=== PATIENT | female | born 1935 | race Caucasian/White ===

== ENCOUNTER 2016-04-26 11:20 | Inpatient (IN) | payer MEDICARE, OTHER, MEDICAID ==
[~2016-04-26] VITALS: Ht 173 cm; Wt 91.0 kg
--- NOTE | ~2016-04-26 | PR ---
[place], [place] PROGRESS NOTE NAME: RADHA SAGE UNIT #: [id number] ROOM: 406 DOCTOR: MONAE POON MD,RACH BIRTHDATE: [birth year] DOS: 04/29/2016 PULMONARY PROGRESS NOTE SUBJECTIVE: She has been noted much better at this time, continued to show reduction and improvement of the respiratory complaints. She was complaining of some shortness of breath, last night, insomnia, treated with some anxiolytics and the medication for insomnia as per patient. OBJECTIVE: VITAL SIGNS: Show normal temperature, respiratory rate 22, heart rate 68, blood pressure 152/68. The pulse oxygen saturation on room air was 94% saturation. HEENT: Examination shows no acute change. NECK: Supple. CARDIOVASCULAR: S1, S2 audible. LUNGS: Noted clear and there were no wheezing or crackles. ABDOMEN: Soft, nontender and obese. LABORATORY DATA: INR 2.5, which is therapeutic. BMP of the patient noted normal. Culture of the bronchial washing noted normal osman. IMPRESSION: 1. Progressive resolution of acute exacerbation of bronchial asthma, acute tracheobronchitis and improvement in the cough of the patient noted progressively. 2. The patient with history of atrial fibrillation for this patient and chronic anticoagulation with therapeutic INR. PLAN OF TREATMENT: The patient would be considered for home discharge at this time. In the meantime, continue other previous treatment, therapy, plan of management. Usual care. Supportive therapy and care. RACH LICONA MD CM:PNTRANS [id number] RACH POON MD 04/29/16 1438 interface
--- NOTE | ~2016-04-26 | PR ---
[place], [place] PROGRESS NOTE NAME: RADHA SAGE UNIT #: [id number] ROOM: 406 DOCTOR: MONAE POON MD,RCAH BIRTHDATE: [birth year] DOS: 04/30/2016 PULMONARY FOLLOWUP SUBJECTIVE: She has been noted without any acute distress at this time. The patient has been noted without any symptoms of chest pain, abdominal pain. The coughing and shortness of breath all improving. She was planned for possible home discharge today. OBJECTIVE: VITAL SIGNS: The patient showed normal temperature, respiratory rate 21-20, heart rate 57, blood pressure 164/60. The pulse oxygen saturation on room air was 95% saturation. HEENT: Showed no acute change. NECK: Supple. CARDIOVASCULAR: S1, S2 audible. LUNGS: The patient was noted without any wheezing or crackles at the present time. ABDOMEN: Soft and nontender. LABORATORY DATA: The INR today was recorded as 3.0. BMP of the patient this morning noted normal BUN and creatinine. IMPRESSION: 1. Stable respiratory status with resolving acute cough in this patient with exacerbation of bronchial asthma, improving markedly. 2. Chronic anticoagulation, history of atrial fibrillation. PLAN OF TREATMENT: No changes in plan of management. Continue current therapy, plan of care as in progress. Other supportive therapy, plan of care, and usual medical management. RACH LICONA MD CM:PNTRANS [id number] RACH POON MD 05/01/16 0019 interface
--- NOTE | ~2016-04-26 | PROC NOTE ---
[place], [place] PROCEDURE NOTE NAME: RADHA SAGE UNIT #: [id number] ROOM: 406 DOCTOR: MONAE POON MD,RACH BIRTHDATE: [birth year] DOS: 04/27/2016 PROCEDURE: Bronchoscopy. PREOPERATIVE DIAGNOSIS: The patient with persistent severe nonresolving cough with acute exacerbation of bronchial asthma. POSTOPERATIVE DIAGNOSIS: Removal of large plugs of mucus from endobronchial tree bilaterally. FINDINGS: Acute tracheobronchitis. No evidence of endobronchial obstructive lesions. PROCEDURE DESCRIPTION: Informed consent obtained from the patient. She was brought to the OR and placed in supine position. Conscious sedation was administered by the Anesthesia Department. After achieving appropriate sedation, airway introduced into the mouth. Bronchoscope advanced through the airway into laryngeal area. Epiglottis and vocal cords were seen. Bronchoscope advanced to the vocal cord and tracheal lumen. Tracheal lumen shows moderate amount of very thick mucus of the patient mixed with some purulent secretions. All these secretions suctioned out to the suman level. The suman was noted sharp. Right upper, right middle, right lower, left upper, lingula and lower lobe bronchi noted for this patient with severe impaction of the mucus plugs with small purulent secretion. All secretions were suctioned out with help of normal saline wash and sent for cultures. Procedure was tolerated by the patient without any complications. Postoperative findings will be discussed with the patient once the patient recovers from the effects of acute sedation. After the bronchoscopy, her Coumadin has been resumed for the patient to be continued at 5 mg daily, her usual dose. RACH LICONA MD CM:PROCNOTE:PROCEDURE NOTE [id number] RACH POON MD
--- NOTE | ~2016-04-26 | CON ---
[place], [place] REPORT OF CONSULTATION [id number] UNIT #: [id number] ROOM: 406 DOCTOR: MONAE POON MD,RACH BIRTHDATE: [birth year] DOS: 04/27/2016 PULMONARY CONSULTATION, EVALUATION AND MANAGEMENT NOTE REASON FOR CONSULTATION: Assess the patient for persistent acute respiratory symptoms. HISTORY OF PRESENT ILLNESS: The patient is a 81-year-old white female who has been known to me from the past. The patient has been treated in the office couple of times with the antibiotics, bronchodilators, corticosteroids because of severe progressive cough, which has been noted nonproductive. The patient was also noted with symptoms of wheezing and shortness of breath. The patient has been noted with only partial improvement in symptoms with the medical management as an outpatient. She presented to the Emergency Room. The patient has been hospitalized after assessment in the Emergency Room for this patient on 04/26/2016. She has been noted with severe cough with minimal sputum expectoration of greenish at times. Most of times, cough has been noted nonproductive, shortness of breath has been also noted significantly increased and the patient also developed fever. The patient denies any symptoms of chest pain, except pain in the lower rib cage noted with excessive cough. She has been noted with wheezing as well, which has been noted intermittently moderate at times. REVIEW OF SYSTEMS: CONSTITUTIONAL: Fatigue and tiredness noted without any symptoms of fever or chills. EYES: Denies any burning, redness, or tenderness. EARS, NOSE AND THROAT SYMPTOMS: No sore throat, hoarseness, otalgia, postnasal drainage or epistaxis. CARDIOVASCULAR: Denies anginal pain, edema of the lower extremities. Denies any symptoms of palpitations. GASTROINTESTINAL: Denies dysphagia, nausea, vomiting, diarrhea, abdominal pain, hematemesis, melena, or hematochezia. GENITOURINARY: Denies dysuria, suprapubic pain or hematuria. MUSCULOSKELETAL: Denies acute joint pain, redness, or tenderness. SKIN: Denies any lesions or rashes. CENTRAL NERVOUS SYSTEM: Denies dizziness, headache, diplopia, syncopal episodes or seizures. Remaining systems were reviewed with the patient, they were noted all negative. PAST MEDICAL HISTORY: The patient was noted with: 1. History of past hospitalization in 2013, at that time the patient has been treated for atypical chest pain and other medical problems and then discharged subsequently home. 2. History of coronary artery disease. 3. History of uncomplicated severe persistent bronchial asthma. 4. Essential hypertension. 5. Hypercholesterolemia. 6. Hypothyroidism. [place], [place] REPORT OF CONSULTATION NAME: RADHA SAGE UNIT #: [id number] ROOM: [facility] DOCTOR: RACH GUNTER MD BIRTHDATE: [birth year] 7. Chronic obesity. 8. Atrial fibrillation. 9. Anxiety neurosis. 10. Obstructive sleep apnea disorder. PAST SURGICAL HISTORY: Reported as: 1. Cardiac catheterization and coronary artery stents insertion. 2. Complete hysterectomy. 3. Laparoscopic cholecystectomy. SOCIAL HISTORY: The patient is , has 5 children. Denies any alcohol use or illicit drug use. Tobacco use noted from the age of [age] years old, 1 pack of cigarettes per day until 1997. There is no occupation related pulmonary exposure. FAMILY HISTORY: Father at the age of 5252 years old from complications of acute myocardial infarction. Mother at the age of 8282 years old from natural causes. MEDICATIONS: The medications which has been listed and used at home by the patient were use of Vicodin, albuterol sulfate via nebulizer, aspirin, calcium carbonate, citalopram, Cardizem-CD, ferrous sulfate, Lasix, Neurontin, levothyroxine, loratadine, losartan, metoprolol, multivitamin, Protonix, potassium chloride, Spiriva, Coumadin and Symbicort HFA inhaler. DRUG ALLERGIES: THE PATIENT WAS NOTED ALLERGIES TO: 1. ZITHROMAX. 2. OXYCODONE. PHYSICAL EXAMINATION: GENERAL: A 81-year-old female who has been currently noted to be awake and alert without any distress. Height of the patient recorded as 5 feet 8 inches, weight of 200 pounds, BMI 30.4. VITAL SIGNS: Normal temperature, respiratory rate 20, heart rate 97, blood pressure 174/76 and 137/55. Pulse oxygen saturation of the patient recorded as 92% saturation. HEENT: Shows head was atraumatic. Eyes nonicterus. Decreased posterior pharyngeal space. LUNGS: Auscultation of chest noted with diffuse expiratory wheezing in the lungs bilaterally without any crackles. ABDOMEN: Soft with chronic obesity. Bowel sounds present. CENTRAL NERVOUS SYSTEM: The patient's cranial nerves 2-12 intact. No focal deficit. MUSCULOSKELETAL: No deformities. SKIN: No lesions or rashes. LABORATORY DATA: PT/INR for the patient yesterday was noted at 2.3, which is therapeutic. Lactic acid was noted 2.1 on admission. CBC on admission was noted as normal CBC. CMP of the patient on admission of 04/26/2016, glucose 159, BUN and creatinine was normal. AST was 49 and ALT was 80 mildly elevated [place], [place] REPORT OF CONSULTATION NAME: RADHA SAGE UNIT #: [id number] ROOM: [facility] DOCTOR: MONAE POON MD,RACH BIRTHDATE: [birth year] and remaining liver function tests were normal. Followup lactic acid of the patient was noted as 2.2 to 2.7. CK-MB and troponin for the patient which were done for this patient yesterday and this morning, 3 sets were normal. The INR for the patient that was done this morning was 2.1. CMP of the patient that was done this morning, glucose 173, BUN and creatinine was normal with a normal AST and ALT this morning. REVIEW OF THE RADIOLOGY DATA: The chest x-ray of the patient that was done on 04/26/2016, shows mild cardiomegaly without any acute pulmonary infiltration. IMPRESSION: 1. The patient who has been currently admitted to the hospital with failed outpatient treatment for acute exacerbation, uncomplicated, severe persistent bronchial asthma with suspected mucus impaction of the airways and possible resistant infection cannot be excluded. 2. The patient with history of obstructive sleep apnea disorder. 3. Chronic anticoagulation patient noted with low normal range of the PT/INR today. 4. Chronic obesity as well. 5. Atrial fibrillation noted with current controlled rate. 6. History of gastroesophageal reflux and allergic rhinitis. PLAN OF TREATMENT: No changes in the plan of management of steroids, bronchodilators and oxygen supplementation. She has been assessed and was made n.p.o. last midnight for this patient for the bronchoscopy that was planned to be done today. After the bronchoscopy assessment of the patient, further change in treatment will be recommended accordingly. In the meantime, no other change in the treatment will be necessary. Usual care. All other supportive plan of management and care. Further treatment changes will be done based on the bronchoscopy. Thank you for allowing me to participate in the care of this patient. RACH LICONA MD CM:CONSTR:REPORT OF CONSULTATION 1110 04/28/16 0342 interface
--- NOTE | ~2016-04-26 | PR ---
[place], [place] PROGRESS NOTE NAME: RADHA SAGE UNIT #: [id number] ROOM: 406 DOCTOR: RACH GUNTER MD BIRTHDATE: [birth year] DOS: 04/28/2016 SUBJECTIVE: The patient was seen and examined 04/28/2016. Bronchoscopy done for the patient yesterday, which has resulted in reduction of the respiratory complaints. The patient denies symptoms of any chest pain. Denies symptoms of abdominal pain. OBJECTIVE: VITAL SIGNS: The patient shows a normal temperature, respiratory rate 18, heart rate 97, blood pressure 137/50. Intake for the patient was at 2.390 liters, output 3400 mL. Pulse oxygen saturation on room air was 94% saturation. HEENT: Examination shows no acute changes. CARDIOVASCULAR: S1, S2 audible. LUNGS: The patient was noted with mild expiratory wheezing, decreased from previous examinations. ABDOMEN: Soft, obese, nontender. EXTREMITIES: Shows obesity with mild ankle edema. LABORATORY DATA: Cultures of the sputum for this patient was noted normal osman. Gram stain bronchial washings yesterday, moderate white blood cells, few epithelial cells, few Gram-positive cocci in pairs and clusters. The PT/INR today was noted as 2.1, which is in therapeutic range. CMP of the patient this morning, glucose 177, BUN and creatinine was normal. CBC of the patient this morning was noted as normal CBC. IMPRESSION: The patient with severe acute tracheobronchitis with exacerbation of uncomplicated severe persistent bronchial asthma, status post bronchoscopy with significant reduction of the respiratory symptoms were noted. PLAN OF TREATMENT: Continuation of the current plan of management. The patient bronchodilators, oxygen supplementation and monitor culture results of the bronchial washing to make any adjustments other medication changes for the patient as needed. The dose of Solu-Medrol certainly be decreased for the patient to 40 mg b.i.d. Potential discharge home could be considered in the morning depending on further resolution and improvement of respiratory symptoms with current medical management. [place], [place] PROGRESS NOTE NAME: RADHA SAGE UNIT #: [id number] ROOM: 406 DOCTOR: RACH GUNTER MD BIRTHDATE: [birth year] RACH LICONA MD CM:PNRIGOBERTO 1223 20 RACH POON MD 04/28/162021 interface
[~2016-04-26 11:20] MED LIST: ACTOS15 MG PO; ALAVERT10 MG PO; APAP/HYDROCODON1 T45 PO; ASPIR-LOW81 MG PO; ASPIRIN81 M1 PO; BISOPROLOL5 MG PO; BLOCADREN5 MG PO; CALCIUM600 M1 PO; CARDIZEM120 MG PO; CELEXA10 MG PO; CELEXA20 MG PO; CIPRO500 MG PO; CITALOPRAM10 MG PO; COUMADIN0.5 M1 PO; COUMADIN1 MG PO; COUMADIN3 M1 PO; COUMADIN4 M1 PO; COUMADIN4 MG PO; COUMADIN5 M2 PO; CRESTOR10 M1 PO; CRESTOR10 MG PO; DILTIAZEM HCL120 MG PO; DILTIAZEM120 MG PO; DOXYCYCLINE100 M3 PO; DULERA100 INH; EFFIENT10 MG PO; FEOSOL300 MG PO; FLAGYL500 MG PO; FUROSEMIDE20 MG PO; FUROSEMIDE40 MG PO; GABAPENTIN300 MG PO; GABAPENTIN400 MG PO; HYDROCODONE-APA1 TA3 PO; HYTONE 2.5% LOT.2 OZ TP; K-Dur 20MEQ20 MEQ PO; LASIX10 MG/ML; LASIX20 MG PO; LEVOTHYROXIN0.075 MG PO; LOPRESSOR PO; LOPRESSOR25 MG PO; LOSARTAN POTASS50 M1 PO; LUMIGAN 2.5 ML2.5 ML OU; Lopressor25 MG PO; MAPAP325 MG PO; MAXZIDE 25 MG-31 TAB PO; MELOXICAM15 MG PO; METFORMIN HCL500 MG PO; METOPROLOL SUCC25 M2 PO; MIRALAX17 GM/PACK PO; MULTIPLE VITAMI1 CAP PO; NEURONTIN100 MG PO; NITROSTAT0.4 MG SL; OXYGEN NAS; PRAVACHOL10 MG PO; PREVACID30 M1 PO; PREVACID30 MG PO; PROAIR HFA0.09 MG/AC; PROAIR HFA0.09 MG/AC INH; PROTONIX TR40 MG PO; PUFFER; REGLAN5 MG PO; SPIRIVA18 MCG INH; SUPER B COMPLEX PO; SUPER B COMPLEX1 CAP PO; SYNTHROID0.025 MG PO; TIMOPTIC 0.5% 55 ML OU; TRIAMTERENE/HCT1 TA3 PO; VICODIN 5/500 505 MG PO; VITAMIN D32000 I1 PO; Vicodin 5/500 505 MG PO; WARFARIN SODIUM3 MG; ZEBETA5 MG PO; Zofran4 MG PO
[2016-04-26 12:03] LABS: BASO # 0.1 10*3/uL (0.0-0.1); BASO % 0.5 % (0.0-1.0); EOS # 0.1 10*3/uL (0.0-0.4); EOS % 1.5 % (1.0-4.0); HEMATOCRIT 42.2 % (37.0-47.0); HEMOGLOBIN 13.7 g/dl (12.0-16.0); LYMPH # 2.1 10*3/uL (1.3-4.4); LYMPH % 22.6 % (27.0-41.0); MEAN CELL VOLUME 93.8 fl (81.0-99.0); MEAN CORPUSCULAR HGB 30.4 pg (27.0-31.0); MEAN CORPUSCULAR HGB CONC 32.5 g/dl (33.0-37.0); MEAN PLATELET VOLUME 9.4 fl (9.6-12.3); NEUT % 64.3 % (47.0-73.0); PLATELET COUNT AUTOMATED 236 10*3/uL (130-400); RED CELL DISTRI WIDTH 15.4 % (0-14.5); WHITE BLOOD COUNT 9.4 10*3/uL (4.8-10.8)
[2016-04-26 12:12] LABS: INTERNATIONAL NORM RATIO 2.3 (2.0-3.5); PROTHROMBIN TIME 25.7 SECONDS (9.0-12.4)
[2016-04-26 12:20] LABS: ALBUMIN 3.3 gm/dl (3.1-4.5); ALKALINE PHOSPHATASE 55 U/L (45-117); BILIRUBIN, TOTAL 0.5 mg/dl (0.2-1.0); BUN 20 mg/dl (7-24); CARBON DIOXIDE 26 mmol/L (21-32); CHLORIDE 105 mmol/L (98-107); CKMB 0.9 ng/ml (0.5-3.6); CPK 38 U/L (26-192); EST GLOM FILT AFRICAN AMERICAN > 60 ml/min; GLUCOSE 159 mg/dL (65-99); MAGNESIUM 1.9 mg/dL (1.5-2.1); POTASSIUM 3.8 mmol/L (3.5-5.1); SGOT/AST 49 IU/L (3-35); SGPT/ALT 80 U/L (12-78); SODIUM 141 mmol/L (136-145); TOTAL PROTEIN 6.6 gm/dL (6.4-8.2)
[2016-04-26 12:25] LABS: C-REACTIVE PROTEIN < 0.29 MG/DL (0-0.3); TROPONIN I < 0.015 ng/ml (<0.045)
[2016-04-26 13:50] LABS: BILIRUBIN NEGATIVE (NEGATIVE); BLOOD NEGATIVE (NEGATIVE); CLARITY SL CLOUDY (CLEAR); COLOR YELLOW (YELLOW); GLUCOSE NEGATIVE (NEGATIVE); KETONE NEGATIVE (NEGATIVE); LEUKO ESTERASE NEGATIVE (NEGATIVE); NITRITE NEGATIVE (NEGATIVE); PROTEIN NEGATIVE (NEGATIVE); UROBILINOGEN 0.2 E.U./dl (0.2-1.0)
[2016-04-26 14:01] LABS: LA>2 REFLEX 2 HR DRAW NOW
[2016-04-26 14:04] LABS: BACTERIA 1+; RBC 0-2 rbc/hpf (0-2); URINE REFLEX COMMENT NO (NO)
[2016-04-26] MEDS ORDERED: LUMIGAN50 DRP OPH (14:10)
[2016-04-26] MEDS ORDERED: ALAVERT10 M2 PO (14:14)
[2016-04-26] MEDS ORDERED: PANTOPRAZOLE SO40 MG PO (14:17)
[2016-04-26] MEDS ORDERED: EYE VITAMIN-MI1 EACH PO (14:18)
[2016-04-26 14:19] LABS: LA>2 RFLX FOLLOW UP AT 2 HRS 2.2 mmol/L (0.4-2.0)
[2016-04-26] MEDS ORDERED: MIRALAX17 GM PO (14:19)
[2016-04-26 16:12] LABS: LA>2 REFLEX 4 HR DRAW NOW
[2016-04-26 18:20] LABS: CKMB 0.6 ng/ml (0.5-3.6); CPK 37 U/L (26-192)
[2016-04-26 18:21] LABS: TROPONIN I < 0.015 ng/ml (<0.045)
[2016-04-27 00:45] LABS: CKMB 0.9 ng/ml (0.5-3.6); CPK 36 U/L (26-192)
[2016-04-27 00:48] LABS: TROPONIN I < 0.015 ng/ml (<0.045)
[2016-04-27 07:05] LABS: HEMATOCRIT 41.4 % (37.0-47.0); HEMOGLOBIN 13.4 g/dl (12.0-16.0); LYMPH # 0.7 10*3/uL (1.3-4.4); LYMPH % 8.7 % (27.0-41.0); MEAN CELL VOLUME 93.5 fl (81.0-99.0); MEAN CORPUSCULAR HGB 30.2 pg (27.0-31.0); MEAN CORPUSCULAR HGB CONC 32.4 g/dl (33.0-37.0); MEAN PLATELET VOLUME 9.9 fl (9.6-12.3); MONO # 0.4 10*3/uL (0.1-1.0); MONO % 5.1 % (3.0-9.0); NEUT # 6.7 10*3/uL (2.3-7.9); NEUT % 85.7 % (47.0-73.0); PLATELET COUNT AUTOMATED 229 10*3/uL (130-400); RED BLOOD COUNT 4.43 10*6/uL (4.10-5.10); RED CELL DISTRI WIDTH 15.2 % (0-14.5); WHITE BLOOD COUNT 7.8 10*3/uL (4.8-10.8)
[2016-04-27 07:29] LABS: CHLORIDE 107 mmol/L (98-107); POTASSIUM 4.3 mmol/L (3.5-5.1); SODIUM 143 mmol/L (136-145)
[2016-04-27 07:36] LABS: CKMB 0.6 ng/ml (0.5-3.6); CPK 32 U/L (26-192)
[2016-04-27 07:39] LABS: INTERNATIONAL NORM RATIO 2.1 (2.0-3.5); PROTHROMBIN TIME 23.6 SECONDS (9.0-12.4); TROPONIN I < 0.015 ng/ml (<0.045)
[2016-04-27 07:57] LABS: ALBUMIN 3.1 gm/dl (3.1-4.5); ALKALINE PHOSPHATASE 53 U/L (45-117); BILIRUBIN, TOTAL 0.4 mg/dl (0.2-1.0); BUN 16 mg/dl (7-24); CARBON DIOXIDE 23 mmol/L (21-32); CHOLESTEROL 118 mg/dL (<200); EST GLOM FILT AFRICAN AMERICAN > 60 ml/min; FREE T4 0.93 ng/dl (0.76-1.46); GLUCOSE 173 mg/dL (65-99); HDL CHOLESTEROL 81 mg/dl (40-60); LDL CHOLESTEROL 29 mg/dL (9-159); MAGNESIUM 2.3 mg/dL (1.5-2.1); PHOSPHOROUS 2.3 mg/dL (2.5-4.9); SGOT/AST 32 IU/L (3-35); SGPT/ALT 77 U/L (12-78); THYROID STIM HORMONE (HS) 0.215 uIU/ml (0.358-4.75); TOTAL PROTEIN 6.3 gm/dL (6.4-8.2); TRIGLYCERIDES 39 mg/dl (<150); VLDL CHOLESTEROL 8 mg/dL (6-40)
[2016-04-27 08:27] LABS: VITAMIN D, 25-HYDROXY 14.7 ng/mL (30-100)
[2016-04-27 08:28] LABS: FOLIC ACID 19.55 ng/mL (>5.38)
[2016-04-27 09:06] LABS: HEMOGLOBIN A1c 6.3 % (4.8-5.6)
[2016-04-28 07:17] LABS: HEMATOCRIT 39.6 % (37.0-47.0); HEMOGLOBIN 12.8 g/dl (12.0-16.0); IG # 0.1 10*3/uL (0.0-0.1); LYMPH # 0.6 10*3/uL (1.3-4.4); MEAN CELL VOLUME 92.5 fl (81.0-99.0); MEAN CORPUSCULAR HGB 29.9 pg (27.0-31.0); MEAN CORPUSCULAR HGB CONC 32.3 g/dl (33.0-37.0); MEAN PLATELET VOLUME 9.7 fl (9.6-12.3); MONO # 0.5 10*3/uL (0.1-1.0); MONO % 4.8 % (3.0-9.0); NEUT # 9.5 10*3/uL (2.3-7.9); NEUT % 88.2 % (47.0-73.0); PLATELET COUNT AUTOMATED 220 10*3/uL (130-400); RED BLOOD COUNT 4.28 10*6/uL (4.10-5.10); RED CELL DISTRI WIDTH 15.8 % (0-14.5); WHITE BLOOD COUNT 10.8 10*3/uL (4.8-10.8)
[2016-04-28 07:32] LABS: ALBUMIN 2.9 gm/dl (3.1-4.5); ALKALINE PHOSPHATASE 45 U/L (45-117); BILIRUBIN, TOTAL 0.4 mg/dl (0.2-1.0); BUN 16 mg/dl (7-24); CARBON DIOXIDE 23 mmol/L (21-32); CHLORIDE 114 mmol/L (98-107); EST GLOM FILT AFRICAN AMERICAN > 60 ml/min; GLUCOSE 177 mg/dL (65-99); POTASSIUM 4.5 mmol/L (3.5-5.1); SGOT/AST 23 IU/L (3-35); SGPT/ALT 67 U/L (12-78); SODIUM 146 mmol/L (136-145); TOTAL PROTEIN 6.1 gm/dL (6.4-8.2)
[2016-04-28 07:49] LABS: INTERNATIONAL NORM RATIO 2.1 (2.0-3.5); PROTHROMBIN TIME 22.9 SECONDS (9.0-12.4)
[2016-04-28 16:12] LABS: ACID FAST SPEC PROCESSING Concentration (.)
[2016-04-29 07:32] LABS: BUN 15 mg/dl (7-24); CARBON DIOXIDE 25 mmol/L (21-32); CHLORIDE 114 mmol/L (98-107); EST GLOM FILT AFRICAN AMERICAN > 60 ml/min; GLUCOSE 178 mg/dL (65-99); POTASSIUM 4.6 mmol/L (3.5-5.1); SODIUM 146 mmol/L (136-145)
[2016-04-29 07:40] LABS: INTERNATIONAL NORM RATIO 2.5 (2.0-3.5); PROTHROMBIN TIME 28.3 SECONDS (9.0-12.4)
[2016-04-30 06:22] LABS: BUN 17 mg/dl (7-24); CARBON DIOXIDE 25 mmol/L (21-32); CHLORIDE 110 mmol/L (98-107); EST GLOM FILT AFRICAN AMERICAN > 60 ml/min; GLUCOSE 179 mg/dL (65-99); POTASSIUM 4.8 mmol/L (3.5-5.1); SODIUM 144 mmol/L (136-145)
[2016-04-30 06:38] LABS: PROTHROMBIN TIME 34.1 SECONDS (9.0-12.4)
[2016-04-30] MEDS ORDERED: LEVAQUIN750 M1 PO (11:58)
== END 2016-04-30 13:50 | disposition home or self-care (01) | DRG 191 ==
LOC: ED 11:20 → EDHOLD 12:23 → 4E 12:23
PROVIDERS: Emergency Medicine; Hospitalist; Internal Medicine; Internal Medicine Critical Care Medicine
PROC: 0BCB8ZZ Extirpation of Matter from Left Lower Lobe Bronchus, Via Natural or Artificial Opening Endoscopic (ICD-10-PCS; principal; 2016-04-27)
PROC: 0BC48ZZ Extirpation of Matter from Right Upper Lobe Bronchus, Via Natural or Artificial Opening Endoscopic (ICD-10-PCS; 2016-04-27)
PROC: 0BC98ZZ Extirpation of Matter from Lingula Bronchus, Via Natural or Artificial Opening Endoscopic (ICD-10-PCS; 2016-04-27)
PROC: 0BC88ZZ Extirpation of Matter from Left Upper Lobe Bronchus, Via Natural or Artificial Opening Endoscopic (ICD-10-PCS; 2016-04-27)
PROC: 0BC58ZZ Extirpation of Matter from Right Middle Lobe Bronchus, Via Natural or Artificial Opening Endoscopic (ICD-10-PCS; 2016-04-27)
PROC: 0BC68ZZ Extirpation of Matter from Right Lower Lobe Bronchus, Via Natural or Artificial Opening Endoscopic (ICD-10-PCS; 2016-04-27)
DX: J44.0 Chronic obstructive pulmonary disease with (acute) lower respiratory infection (principal); E44.0 Moderate protein-calorie malnutrition; I48.0 Paroxysmal atrial fibrillation; J45.51 Severe persistent asthma with (acute) exacerbation; I10 Essential (primary) hypertension; E03.9 Hypothyroidism, unspecified; K21.9 Gastro-esophageal reflux disease without esophagitis; E55.9 Vitamin D deficiency, unspecified; J44.1 Chronic obstructive pulmonary disease with (acute) exacerbation; Z85.038 Personal history of other malignant neoplasm of large intestine; E11.9 Type 2 diabetes mellitus without complications; E78.5 Hyperlipidemia, unspecified; Z86.73 Personal history of transient ischemic attack (TIA), and cerebral infarction without residual deficits; Z87.891 Personal history of nicotine dependence; Z82.49 Family history of ischemic heart disease and other diseases of the circulatory system; I25.10 Atherosclerotic heart disease of native coronary artery without angina pectoris; E66.9 Obesity, unspecified; G47.33 Obstructive sleep apnea (adult) (pediatric); F41.1 Generalized anxiety disorder; Z95.5 Presence of coronary angioplasty implant and graft; Z88.1 Allergy status to other antibiotic agents; Z88.5 Allergy status to narcotic agent; Z79.01 Long term (current) use of anticoagulants; J30.9 Allergic rhinitis, unspecified; J20.9 Acute bronchitis, unspecified; Z68.30 Body mass index [BMI] 30.0-30.9, adult

== ENCOUNTER → 2016-10-06 | Outpatient (CLI) | payer MEDICARE, OTHER, MEDICAID ==
[~2016-10-06] MED LIST changes: +ALAVERT10 M2 PO; +EYE VITAMIN-MI1 EACH PO; +LEVAQUIN750 M1 PO; +LUMIGAN50 DRP OPH; +MIRALAX17 GM PO; +PANTOPRAZOLE SO40 MG PO
== END | disposition home or self-care (01) ==
LOC: RAD 11:25
DX: S32.010D Wedge compression fracture of first lumbar vertebra, subsequent encounter for fracture with routine healing (principal); M47.817 Spondylosis without myelopathy or radiculopathy, lumbosacral region; M47.812 Spondylosis without myelopathy or radiculopathy, cervical region; M43.16 Spondylolisthesis, lumbar region; M41.85 Other forms of scoliosis, thoracolumbar region; M48.07 Spinal stenosis, lumbosacral region; M47.894 Other spondylosis, thoracic region; X58.XXXD Exposure to other specified factors, subsequent encounter

== ENCOUNTER → 2017-05-04 | Outpatient (CLI) | payer MEDICARE, OTHER, MEDICAID | END | disposition home or self-care (01) | LOC: RAD 11:26 | DX: J44.9 Chronic obstructive pulmonary disease, unspecified (principal) ==

== ENCOUNTER 2017-05-17 21:31 | Emergency (ER) | payer MEDICARE, OTHER, MEDICAID ==
[~2017-05-17] VITALS: Ht 170.1 cm; Wt 114.3 kg
[2017-05-17 21:43] VITALS: BP 119/59
[2017-05-17 22:40] LABS: BASO % 0.3 % (0.0-1.0); EOS # 0.1 10*3/uL (0.0-0.4); HEMATOCRIT 38.6 % (37.0-47.0); HEMOGLOBIN 12.4 g/dl (12.0-16.0); LYMPH # 1.1 10*3/uL (1.3-4.4); MEAN CELL VOLUME 92.3 fl (81.0-99.0); MEAN CORPUSCULAR HGB 29.7 pg (27.0-31.0); MEAN CORPUSCULAR HGB CONC 32.1 g/dl (33.0-37.0); MEAN PLATELET VOLUME 9.6 fl (9.6-12.3); MONO # 1.1 10*3/uL (0.1-1.0); MONO % 10.7 % (3.0-9.0); NEUT # 8.3 10*3/uL (2.3-7.9); NEUT % 77.7 % (47.0-73.0); PLATELET COUNT AUTOMATED 189 10*3/uL (130-400); RED BLOOD COUNT 4.18 10*6/uL (4.10-5.10); RED CELL DISTRI WIDTH 15.5 % (0-14.5); WHITE BLOOD COUNT 10.7 10*3/uL (4.8-10.8)
[2017-05-17 22:56] LABS: ALBUMIN 3.3 gm/dl (3.1-4.5); ALKALINE PHOSPHATASE 57 U/L (45-117); BUN 13 mg/dl (7-24); CHLORIDE 102 mmol/L (98-107); CREATININE 0.69 mg/dL (0.55-1.02); POTASSIUM 4.9 mmol/L (3.5-5.1); SGOT/AST 25 IU/L (3-35); SGPT/ALT 36 U/L (12-78); SODIUM 135 mmol/L (136-145); TOTAL PROTEIN 6.5 gm/dL (6.4-8.2); URIC ACID 4.7 mg/dL (2.6-6.0)
[2017-05-17 23:05] LABS: INTERNATIONAL NORM RATIO 9.2 (2.0-3.5)
== END 2017-05-18 02:23 | disposition home or self-care (01) ==
LOC: ED 21:31
PROVIDERS: Nurse Practitioner Family
DX: M19.041 Primary osteoarthritis, right hand (principal); M79.644 Pain in right finger(s); R79.1 Abnormal coagulation profile; I48.91 Unspecified atrial fibrillation; J44.9 Chronic obstructive pulmonary disease, unspecified; E11.9 Type 2 diabetes mellitus without complications; E78.5 Hyperlipidemia, unspecified; E03.9 Hypothyroidism, unspecified; I10 Essential (primary) hypertension; Z86.73 Personal history of transient ischemic attack (TIA), and cerebral infarction without residual deficits; Z90.49 Acquired absence of other specified parts of digestive tract; Z98.890 Other specified postprocedural states; Z87.891 Personal history of nicotine dependence; Z90.710 Acquired absence of both cervix and uterus; Z96.642 Presence of left artificial hip joint; Z79.82 Long term (current) use of aspirin; Z79.01 Long term (current) use of anticoagulants; Z79.899 Other long term (current) drug therapy; Z88.1 Allergy status to other antibiotic agents; Z88.5 Allergy status to narcotic agent

== ENCOUNTER → 2017-11-01 | Outpatient (CLI) | payer MEDICARE, OTHER, MEDICAID ==
[2017-11-01 11:37] LABS: ALBUMIN 3.4 gm/dl (3.1-4.5); BUN 19 mg/dl (7-24); CHLORIDE 104 mmol/L (98-107); CREATININE 1.02 mg/dL (0.55-1.02); SODIUM 139 mmol/L (136-145)
[2017-11-01 11:38] LABS: PHOSPHOROUS 2.5 mg/dL (2.5-4.9)
[2017-11-01 12:05] LABS: BILIRUBIN NEGATIVE (NEGATIVE); BLOOD NEGATIVE (NEGATIVE); CLARITY CLEAR (CLEAR); COLOR YELLOW (YELLOW); GLUCOSE NEGATIVE (NEGATIVE); KETONE NEGATIVE (NEGATIVE); LEUKO ESTERASE NEGATIVE (NEGATIVE); NITRITE NEGATIVE (NEGATIVE); PH 5.5 (5.0-9.0); SPECIFIC GRAVITY <= 1.005 (1.005-1.030); UROBILINOGEN 0.2 E.U./dl (0.2-1.0)
[2017-11-01 12:28] LABS: BACTERIA TRACE; CALCIUM OXALATE CRYSTALS 1+
== END | disposition home or self-care (01) ==
LOC: LAB 11:04
PROVIDERS: Internal Medicine Nephrology
DX: N17.9 Acute kidney failure, unspecified (principal); Z79.899 Other long term (current) drug therapy

== ENCOUNTER 2018-04-04 05:39 | Emergency (ER) | payer MEDICARE, OTHER, MEDICAID ==
[~2018-04-04] VITALS: Ht 170.1 cm; Wt 122.5 kg
--- NOTE | ~2018-04-04 | EKG ---
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
[~2018-04-04 05:39] MED LIST changes: -LEVOTHYROXIN0.075 MG PO; +LEVOTHYROXINE75 MCG PO; -TIMOPTIC 0.5% 55 ML OU; +TIMOPTIC 0.5%1 EACH OP
[2018-04-04 06:30] LABS: BASO % 0.6 % (0.0-1.0); EOS # 0.2 10*3/uL (0.0-0.4); EOS % 2.9 % (1.0-4.0); HEMATOCRIT 40.5 % (37.0-47.0); HEMOGLOBIN 12.4 g/dl (12.0-16.0); LYMPH # 1.5 10*3/uL (1.3-4.4); LYMPH % 21.2 % (27.0-41.0); MEAN CELL VOLUME 100.7 fl (81.0-99.0); MEAN CORPUSCULAR HGB 30.8 pg (27.0-31.0); MEAN CORPUSCULAR HGB CONC 30.6 g/dl (33.0-37.0); MEAN PLATELET VOLUME 10.1 fl (9.6-12.3); MONO # 0.9 10*3/uL (0.1-1.0); MONO % 12.7 % (3.0-9.0); NEUT # 4.5 10*3/uL (2.3-7.9); NEUT % 62.2 % (47.0-73.0); PLATELET COUNT AUTOMATED 183 10*3/uL (130-400); RED BLOOD COUNT 4.02 10*6/uL (4.10-5.10); RED CELL DISTRI WIDTH 15.2 % (0-14.5); WHITE BLOOD COUNT 7.2 10*3/uL (4.8-10.8)
[2018-04-04 06:41] LABS: BILIRUBIN NEGATIVE (NEGATIVE); BLOOD NEGATIVE (NEGATIVE); CLARITY CLEAR (CLEAR); COLOR YELLOW (YELLOW); GLUCOSE NEGATIVE (NEGATIVE); KETONE NEGATIVE (NEGATIVE); LEUKO ESTERASE NEGATIVE (NEGATIVE); NITRITE NEGATIVE (NEGATIVE); PH 5.5 (5.0-9.0); SPECIFIC GRAVITY 1.025 (1.005-1.030); UROBILINOGEN 0.2 E.U./dl (0.2-1.0)
[2018-04-04 07:00] LABS: ALKALINE PHOSPHATASE 61 U/L (45-117); BUN 19 mg/dl (7-24); CHLORIDE 108 mmol/L (98-107); CREATININE 0.95 mg/dL (0.55-1.02); POTASSIUM 4.6 mmol/L (3.5-5.1); SGOT/AST 30 IU/L (3-35); SGPT/ALT 28 U/L (12-78); SODIUM 141 mmol/L (136-145); TOTAL PROTEIN 6.8 gm/dL (6.4-8.2)
[2018-04-04 07:11] LABS: BACTERIA TRACE; CALCIUM OXALATE CRYSTALS TRACE
[2018-04-04 07:15] LABS: TROPONIN I < 0.015 ng/ml (<0.045)
[2018-04-04 07:21] VITALS: BP 140/53
[2018-09-11] MEDS ORDERED: SYMB160 INH (20:29)
[2018-09-12] MEDS ORDERED: COUMADIN4 M2 PO (01:27)
[2018-09-12] MEDS ORDERED: LORATADINE10 M3 PO (01:29)
[2018-09-12] MEDS ORDERED: B12,B-12,B 12500 MC1 PO (01:30)
[2018-09-13] MEDS ORDERED: TORSEMIDE100 MG PO (14:19)
[2018-09-13] MEDS ORDERED: KLOR-CON M2020 ME1 PO (14:19)
== END 2018-04-04 07:46 | disposition home or self-care (01) ==
LOC: ED 05:39
PROVIDERS: Student in an Organized Health Care Education/Training Program
DX: G43.909 Migraine, unspecified, not intractable, without status migrainosus (principal); J44.9 Chronic obstructive pulmonary disease, unspecified; E11.9 Type 2 diabetes mellitus without complications; I10 Essential (primary) hypertension; E03.9 Hypothyroidism, unspecified; M19.90 Unspecified osteoarthritis, unspecified site; I48.91 Unspecified atrial fibrillation; Z86.73 Personal history of transient ischemic attack (TIA), and cerebral infarction without residual deficits; Z88.1 Allergy status to other antibiotic agents; Z88.6 Allergy status to analgesic agent; Z79.899 Other long term (current) drug therapy; Z79.82 Long term (current) use of aspirin

== ENCOUNTER 2018-07-15 17:11 | Inpatient (IN) | payer MEDICARE, OTHER, MEDICAID ==
[~2018-07-15] VITALS: Ht 170.1 cm; Wt 120.8 kg
--- NOTE | ~2018-07-15 | EKG ---
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
--- NOTE | ~2018-07-15 | PR ---
[place], [place] PROGRESS NOTE [id number] #: [id number] ROOM: 415 DOCTOR: IKE GARCIA MD BIRTHDATE: [birth year] DOS: 07/22/2018 SUBJECTIVE: She has been in the hospital for several days and has been on IV furosemide 80 mg b.i.d. and urine output has been fairly good mostly more than 1.5 liters every day. Fluid balance has been greater than -9 liters for the last 5 days and her weight has come down from 126-121 kilos. Her breathing is fairly decent. She has no chest pain, palpitations and has not had any orthopnea. Swelling in the legs has been pretty much resolved. She is complaining of lot of aching in both legs, reason is not clear. No fever or chills. She walked around in the room without much difficulty. PHYSICAL EXAMINATION: GENERAL: Revealed the patient is very pleasant, alert, oriented, very comfortable. VITAL SIGNS: Pulse is 72, blood pressure 124/50. NECK: JVP is normal. AJR is negative. EXTREMITIES: She has just 1+ edema in the lower extremities and the calves feel soft and supple now and no pedal edema is present. RESPIRATORY: She is mildly tachypneic probably because of morbid obesity. LUNGS: Clear to auscultation with reduced breath sounds. LABORATORY DATA: BUN is 24 and was 31 three days ago, creatinine is 1.0 and was 1.15 on 07/19/2018. IMPRESSION AND PLAN: This patient has acute on chronic diastolic heart failure and is well compensated now and the patient can be discharged home. My preference would be to use torsemide 50 mg daily instead of furosemide. I think this is probably working better for this patient. She has an appointment assuming to see me in a couple of weeks. I would recommend doing a chemistry profile in the next 4-5 days. I thank you for letting me to participate in the care of this patient. IKE GARCIA MD CM:PNTRANS 1044 1322 IKE GARCIA MD 07/22/18 1322 interface
--- NOTE | ~2018-07-15 | PR ---
[place], [place] PROGRESS NOTE NAME: RADHA SAGE UNIT #: [id number] ROOM: 415 DOCTOR: IKE GARCIA MD BIRTHDATE: [birth year] DOS: 07/17/2018 SUBJECTIVE: She diuresed reasonably well day before yesterday when she came to the hospital. Urine output has been rather low today. She is on 60 mg of furosemide b.i.d. intravenously. She has some shortness of breath. Her swelling is still there. There is some redness in the legs as well. No fever or chills. She has not had any palpitation or chest pain. Appetite is fine. PHYSICAL EXAMINATION: GENERAL: The patient is very pleasant, alert, comfortable. VITAL SIGNS: Pulse is 62 and regular, blood pressure 103/42. NECK: JVP is normal. AJR is difficult to assess. EXTREMITIES: She has at least 2+ edema but difficult to pit indicating chronicity of this swelling. LUNGS: Auscultation revealed reduced breath sounds with adventitious sounds. LABORATORY DATA: Renal function is fine. IMPRESSION: This patient had diastolic heart failure, significant edema of the lower extremities. The urine output has declined. Renal function remains fairly decent. RECOMMENDATIONS: IV Lasix to 80 mg t.i.d. and reduce the losartan from 50 to 25 mg daily because of low blood pressure. Chemistry profile will be done tomorrow. I think she should have IV Lasix for another couple of days. IKE GARCIA MD CM:PNTRANS 02 99 IKE GARCIA MD 08/13/18 7662 interface
--- NOTE | ~2018-07-15 | EKG ---
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
--- NOTE | ~2018-07-15 | PR ---
[place], [place] PROGRESS NOTE NAME: RADHA SAGE UNIT #: [id number] ROOM: 415 DOCTOR: GREGORIA VICENTE MD BIRTHDATE: [birth year] DOS: 07/23/2018 SUBJECTIVE: The patient with IV diuretics every day and being diuresed very well. Cardiac status appears to be stable. The patient is negative 580 mL today. Breathing is significantly improved. OBJECTIVE: GENERAL: The patient is pleasant. VITAL SIGNS: Blood pressure is 120/70. Sinus rhythm, heart rate is 70. RESPIRATORY SYSTEM: Mildly tachypneic. NECK: JVP is normal. EXTREMITIES: About 1+ edema, which is chronic. LABORATORY DATA: Shows hemoglobin of 12 and hematocrit of 38. Sodium is 141, potassium is 3.4, and creatinine is 0.9. IMPRESSION: Diastolic heart failure, chronic; atypical chest discomfort, history of cerebrovascular accident, and atrial fibrillation, paroxysmal. RECOMMENDATIONS: Continue the present medications. IV diuretics ____. Continue the Coumadin. Last INR is 1.6, which is much better, keep it around 2. Increase activity. Discharge plan. GREGORIA VICENTE MD CM:PNTRANS 6 8 GREGORIA VICENTE MD 07/23/18 0720 interface
--- NOTE | ~2018-07-15 | CON ---
[place], [place] REPORT OF CONSULTATION NAME: RADHA SAGE UNIT #: [id number] ROOM: 415 DOCTOR: GREGORIA VICENTE MD BIRTHDATE: [birth year] DOS: 07/16/2018 HISTORY OF PRESENT ILLNESS: Covering for Dr. Faulkner. The patient was seen by Dr. Faulkner in his office. The patient had weight gain and the patient was transferred here for care. The patient had the last echocardiogram about 8 years ago, repeat one is pending. Last echo showed a good ejection fraction. She does have history of atrial fibrillation and stent placement, COPD, hypertension, hyperlipidemia, morbid obesity. The patient has increased dyspnea with exertion and 26-pound weight gain recently. No obvious chest discomfort. She does have some shortness of breath. PAST MEDICAL HISTORY: Significant for atrial fibrillation, coronary artery disease, COPD, hypertension, hyperlipidemia, history of CVA. PAST SURGICAL HISTORY: Appendectomy, cholecystectomy, hysterectomy, and stent placement. SOCIAL HISTORY: Not a smoker, quit 40 years ago. FAMILY HISTORY: Positive for coronary artery disease. ALLERGIES: OXYCODONE. HOME MEDICATIONS: Aspirin, Lasix 80 mg daily, loratadine, losartan, metoprolol, warfarin. REVIEW OF SYSTEMS: CONSTITUTIONAL: Positive for weight gain. HEENT: No visual disturbance or hearing problems. CARDIOVASCULAR: As per HPI. GASTROINTESTINAL: No nausea, no vomiting. GENITOURINARY: No dysuria. NEUROLOGICAL: Stable. PHYSICAL EXAMINATION: VITAL SIGNS: Blood pressure is 100/50. The patient is in atrial fibrillation. GENERAL: She is alert and awake. HEENT: Elevated JVD. LUNGS: Diminished breath sounds. HEART: Sounds are irregularly irregular. ABDOMEN: Soft. EXTREMITIES: About 2+ edema. NEUROLOGIC: Stable. LABORATORY DATA: Sodium 138, potassium 4.5, BUN and creatinine 13 and 1.1. INR is 1.9, hemoglobin 12.3, hematocrit within normal limits. Chest x-ray showed mild interstitial pulmonary edema. No pleural effusion. IMPRESSION: The patient with worsening of acute on chronic diastolic heart failure, morbid obesity, coronary artery disease, hypertension, hyperlipidemia, [place], [place] REPORT OF CONSULTATION NAME: RADHA SAGE UNIT #: [id number] ROOM: 415 DOCTOR: GREGORIA VICENTE MD BIRTHDATE: [birth year] history of atrial fibrillation. RECOMMENDATIONS: I agree with the present management. Await echo report. Continue IV diuretics as ordered. Strict I's and O's, 1500 mL fluid restriction. Keep the INR about 2. Continue to diurese with fluid restriction and CHF pathway and we will follow up. GREGORIA VICENTE MD CM:CONSTR:REPORT OF CONSULTATION 0735 07/17/18 0020 interface
--- NOTE | ~2018-07-15 | EKG ---
[place], [place] ELECTROCARDIOGRAM REPORT NAME: RADHA SAGE UNIT #: [id number] ROOM: 415 DOCTOR: EM DRAFT REPORT BIRTHDATE: [birth year] [facility] Test Date: 2018-07-15 Test Time: 20:34:39 Pat Name: RADHA SAGE Department: Room: 415 1 Gender: F Under Cutter: SS RESP : 1935 Requested By: KEN ROMERO Order Number: [id number] Reading MD: Sommer Faulkner MD Measurements Intervals [place] Rate: 65 P: AL: QRS: 48 QRSD: 106 T: 16 QT: 447 QTc: 465 Interpretive Statements Junctional rhythm Compared to ECG 04/04/2018 05:54:24 Junctional rhythm now present Sinus rhythm no longer present Electronically Signed On 07-17-2018 14:45:48 PDT by Sommer Faulkner MD CM:EKGRPT:ELECTROCARDIOGRAM REPORT 33 [id number] KEN HADLEY DRAFT REPORT KEN ROMERO DO
--- NOTE | ~2018-07-15 | PR ---
[place], [place] PROGRESS NOTE NAME: RADHA SAGE UNIT #: [id number] ROOM: 415 DOCTOR: IKE GARCIA MD BIRTHDATE: [birth year] DOS: 07/19/2018 SUBJECTIVE: She feels better. Breathing is clearly easy, but her legs ache when she is walking around. No fever or chills, has not had any palpitation and no cough. Her appetite is fine. Mood is pretty good. Her granddaughter is visiting her. PHYSICAL EXAMINATION: GENERAL: She is alert, oriented, comfortable. Temperature is 97.9 degrees, pulse is 70. Blood pressure 102/41. NECK: JVP appears to be normal. AJR difficult to assess. CARDIOVASCULAR: She has no obvious murmurs. She still has 2+ edema with rather firm legs which are softening up somewhat. RESPIRATORY: Breath sounds are mildly diminished. Lungs are fairly clear. LABORATORY DATA: Fluid balance has been -4.8 liters for the last 48 hours. Hemoglobin is 12, BUN 33, creatinine 1.15, barely any change since admission. IMPRESSION: This patient has diastolic heart failure, but still significant volume overload. RECOMMENDATIONS: Please continue inducing negative fluid balance for the next 2-3 days before discharge. IKE GARCIA MD CM:PNTRANS [id number] IKE GARCIA MD 07/20/18 0548 interface
[2018-07-15 17:12] VITALS: BP 118/34
[2018-07-15 17:30] VITALS: BP 102/51
[2018-07-15 17:53] LABS: BASO # 0.1 10*3/uL (0.0-0.1); BASO % 0.8 % (0.0-1.0); EOS # 0.1 10*3/uL (0.0-0.4); EOS % 1.8 % (1.0-4.0); HEMATOCRIT 37.9 % (37.0-47.0); HEMOGLOBIN 12.3 g/dl (12.0-16.0); LYMPH # 1.5 10*3/uL (1.3-4.4); LYMPH % 22.8 % (27.0-41.0); MEAN CELL VOLUME 97.7 fl (81.0-99.0); MEAN CORPUSCULAR HGB 31.7 pg (27.0-31.0); MEAN CORPUSCULAR HGB CONC 32.5 g/dl (33.0-37.0); MEAN PLATELET VOLUME 9.7 fl (9.6-12.3); MONO % 14.5 % (3.0-9.0); NEUT % 59.8 % (47.0-73.0); PLATELET COUNT AUTOMATED 214 10*3/uL (130-400); RED BLOOD COUNT 3.88 10*6/uL (4.10-5.10); RED CELL DISTRI WIDTH 15.1 % (0-14.5); WHITE BLOOD COUNT 6.6 10*3/uL (4.8-10.8)
[2018-07-15 18:12] LABS: ALBUMIN 3.1 gm/dl (3.1-4.5); ALKALINE PHOSPHATASE 58 U/L (45-117); BUN 13 mg/dl (7-24); CHLORIDE 101 mmol/L (98-107); CREATININE 1.18 mg/dL (0.55-1.02); POTASSIUM 4.5 mmol/L (3.5-5.1); SGOT/AST 44 IU/L (3-35); SGPT/ALT 37 U/L (12-78); SODIUM 138 mmol/L (136-145); TOTAL PROTEIN 6.4 gm/dL (6.4-8.2)
[2018-07-15 18:15] LABS: TROPONIN I < 0.015 ng/ml (<0.045)
[2018-07-15 18:32] VITALS: BP 93/48
[2018-07-15 19:19] LABS: INTERNATIONAL NORM RATIO 1.9 (2.0-3.5)
[2018-07-15] MEDS ORDERED: LOPRESSOR25 MG PO (19:46)
[2018-07-15] MEDS ORDERED: ALPHAGAN-P 0.2%5 ML OPH (19:47)
[2018-07-15] MEDS ORDERED: NORCO 7.5-3251 EACH PO (19:48)
[2018-07-15] MEDS ORDERED: TESSALON PERLE100 MG PO (19:51)
--- NOTE | 2018-07-15 19:52 | NUR ---
A 83, admitted to , under the services of FAROOQ Alvarado DO with a diagnosis of CHF. Chief complaint is SHORTNESS OF BREATH. Patient arrived via ambulatory from ER. Monitor applied. Initial assessment completed. Vital signs taken and recorded. FAROOQ ALVARADO DO notified of admission to the unit. Orders received. See assessment for past medical history, medications and allergies. Patient and/or family oriented to unit. [facility] visitation policy reviewed. Clothing/patient valuable form completed. FRANKO DIEGO
[2018-07-15] MEDS ORDERED: TRAD5TAB1 PO (19:54)
[2018-07-15 19:55] LABS: BILIRUBIN NEGATIVE (NEGATIVE); BLOOD NEGATIVE (NEGATIVE); CLARITY CLEAR (CLEAR); COLOR YELLOW (YELLOW); GLUCOSE NEGATIVE (NEGATIVE); KETONE NEGATIVE (NEGATIVE); LEUKO ESTERASE TRACE (NEGATIVE); NITRITE NEGATIVE (NEGATIVE); PH 5.5 (5.0-9.0); SPECIFIC GRAVITY <= 1.005 (1.005-1.030); UROBILINOGEN 0.2 E.U./dl (0.2-1.0)
[2018-07-15 20:04] LABS: BACTERIA TRACE; HYALINE CAST 0-2
[2018-07-15] MEDS ORDERED: FEROSUL325 MG PO (20:11)
[2018-07-15] MEDS ORDERED: XALATAN 0.005%2.5 ML INTRAOC (20:12)
[2018-07-15] MEDS ORDERED: KLOR-CON M2020 ME1 PO (20:13)
[2018-07-15] MEDS ORDERED: VITAMIN D35000 UNIT PO (20:15)
[2018-07-15] MEDS ORDERED: LORATADINE10 M3 PO (20:16)
--- NOTE | 2018-07-15 20:19 | NUR ---
PATIENT'S MED REC IS COMPLE[facility] [place] AND PATIENT'S RECOLLECTION.
[2018-07-15 20:36] VITALS: BP 127/56
[2018-07-16] VITALS: BP 118/44
[2018-07-16 06:42] LABS: BASO # 0.1 10*3/uL (0.0-0.1); BASO % 0.8 % (0.0-1.0); EOS # 0.1 10*3/uL (0.0-0.4); EOS % 2.1 % (1.0-4.0); HEMATOCRIT 38.8 % (37.0-47.0); HEMOGLOBIN 12.3 g/dl (12.0-16.0); LYMPH # 1.2 10*3/uL (1.3-4.4); LYMPH % 18.8 % (27.0-41.0); MEAN CELL VOLUME 98.5 fl (81.0-99.0); MEAN CORPUSCULAR HGB 31.2 pg (27.0-31.0); MEAN CORPUSCULAR HGB CONC 31.7 g/dl (33.0-37.0); MONO # 0.9 10*3/uL (0.1-1.0); MONO % 14.4 % (3.0-9.0); NEUT % 63.4 % (47.0-73.0); PLATELET COUNT AUTOMATED 223 10*3/uL (130-400); RED BLOOD COUNT 3.94 10*6/uL (4.10-5.10); WHITE BLOOD COUNT 6.3 10*3/uL (4.8-10.8)
[2018-07-16 06:57] LABS: ALBUMIN 3.1 gm/dl (3.1-4.5); CREATININE 1.1 mg/dL (0.55-1.02); FREE T4 0.92 ng/dl (0.76-1.46); PHOSPHOROUS 3.9 mg/dL (2.5-4.9); POTASSIUM 3.7 mmol/L (3.5-5.1); TOTAL PROTEIN 6.2 gm/dL (6.4-8.2)
[2018-07-16 07:02] LABS: THYROID STIM HORMONE (HS) 2.08 uIU/ml (0.358-4.75)
[2018-07-16 07:11] LABS: ACT PARTIAL THROMBO TIME 32.9 SECONDS (20.0-32.1); INTERNATIONAL NORM RATIO 1.6 (2.0-3.5)
--- NOTE | 2018-07-16 07:40 | NUR ---
PT RESTING IN BED. ASSISTED TO BATHROOM AND BACK. RESP-EASY AND REGULAR. NO C/O A TTHIS TIME. OXYGEN IN USE. CALL LIGHT IN REACH. SEE SHIFT ASSESSMENT.
[2018-07-16 07:58] LABS: VITAMIN D, 25-HYDROXY 42.2 ng/mL (30-100)
[2018-07-16 08:00] VITALS: BP 132/66
--- NOTE | 2018-07-16 09:00 | NUR ---
Test Inspection Engineer in to talk to patient. Patient states lives at home with alone. There are no steps in the home. Physician: darien hong [facility]acy[facility] Home health services: [employer] Patient's level of ADLs: MINIMAL ASSIST Patient has working utilities: all working DME: walker, home oxygen, portable tanks from [facility] Follow-up physician's appointment after d/c: will be made by hospitalist nurse director upon discharge Does patient want to access PORTAL?: no Discharge plan discussed with patient, patient lives at [facility] alone, she is independent in adls and uses her walker for ambulation, [facility] from 9am-1pm 7 days a week, patient stated they take her to the doctors, to get groceries and do general housekeeping and cooking., patient states she has family that comes to visit in the evening and will do whatever else she needs done, patient states she will be going home when able and denies any other needs. LYUDMILA CAMPOS
--- NOTE | 2018-07-16 10:00 | NUR ---
TOLERATED ROUTINE MED WITH NO PROBLEM. NO C/O AT THIS TIME. VISITOR AT SIDE. CALL LIGHT IN REACH.
--- NOTE | 2018-07-16 10:05 | NUR ---
Nursing screen received. Occupational Therapy referral received. Thank you. Lucille Ervin OTr/L
--- NOTE | 2018-07-16 10:41 | NUR ---
Occupational Therapy evaluation completed on 4 with full eval to follow. Precautions include obesity, 4 wh walker use, IV UE, supervision w/ extended amb in hallway and in ADLs, low complexity level 90877 via chart review, testing and evaluation. Recommend no further OT at this time. Discharge home when able with no further OT. Thank you. Lucille Ervin OTR/L
--- NOTE | 2018-07-16 10:55 | NUR ---
PHYSICAL THERAPY Patient evaluated on 4, full evaluation to follow. Continue with PT as per plan of care with fall, 02 and acute debility precautions. Home with aides as prior and home health RN and PT. PAtient is moderate complexity via chart review, tests and evaluation: [id number]. Thank you for this referral. Preeti Phipps,PT
[2018-07-16 12:00] VITALS: BP 113/52
--- NOTE | 2018-07-16 15:37 | NUR ---
NORCO GIVEN FOR PAIN. WILL REASSESS PAIN LEVEL LATER.
[2018-07-16 16:00] VITALS: BP 98/77
--- NOTE | 2018-07-16 16:10 | NUR ---
PAIN MEDICATION WAS TOLERATED AND EFFECTIVE. PT RESTING COMFORTABLY.
[2018-07-16 20:00] VITALS: BP 114/47
--- NOTE | 2018-07-16 23:12 | NUR ---
PT C/O BACK PAIN 07/22. PRN MEDS GIVEN. WILL MONITOR FOR EFFECTIVENESS
[2018-07-17] VITALS: BP 110/42
[2018-07-17 06:15] LABS: BASO % 0.6 % (0.0-1.0); EOS # 0.1 10*3/uL (0.0-0.4); HEMATOCRIT 38.3 % (37.0-47.0); LYMPH # 1.4 10*3/uL (1.3-4.4); LYMPH % 28.8 % (27.0-41.0); MEAN CELL VOLUME 99.7 fl (81.0-99.0); MEAN CORPUSCULAR HGB 31.3 pg (27.0-31.0); MEAN CORPUSCULAR HGB CONC 31.3 g/dl (33.0-37.0); MEAN PLATELET VOLUME 9.9 fl (9.6-12.3); MONO # 0.8 10*3/uL (0.1-1.0); MONO % 17.2 % (3.0-9.0); NEUT # 2.5 10*3/uL (2.3-7.9); PLATELET COUNT AUTOMATED 208 10*3/uL (130-400); RED BLOOD COUNT 3.84 10*6/uL (4.10-5.10); RED CELL DISTRI WIDTH 15.4 % (0-14.5); WHITE BLOOD COUNT 4.9 10*3/uL (4.8-10.8)
[2018-07-17 06:30] LABS: ALBUMIN 3.1 gm/dl (3.1-4.5); CREATININE 1.18 mg/dL (0.55-1.02); POTASSIUM 3.7 mmol/L (3.5-5.1); TOTAL PROTEIN 6.3 gm/dL (6.4-8.2)
[2018-07-17 07:06] LABS: INTERNATIONAL NORM RATIO 1.3 (2.0-3.5)
--- NOTE | 2018-07-17 07:40 | NUR ---
PT SITTING UP AT SIDE OF BED. RESP-EASY AND REGULAR. OXYGEN IN USE. NO C/O AT THIS TIME. CALL LIGHT IN REACH. SEE SHIFT ASSESSMENT.
[2018-07-17 08:10] VITALS: BP 114/62
--- NOTE | 2018-07-17 09:00 | NUR ---
case management visits with patient, patient states she will be going home when able. no voiced needs at this time
--- NOTE | 2018-07-17 10:15 | NUR ---
PHYSICAL THERAPY Patient seen this am 1;1 for therapy visit and was sitting up EOB upon therapist arrival. Patient presented with continuous O2-3L via NC and reports mild B LE pain / stiffness. Patient transfers sit to stand CGA and ambulates with use of seated 4 wh Rollator walker, 75'x 2. Patient demonstrates slow, steady sanjeev, decreaed stride and mild SOB, needing v/c for purse lip breathing technique. Patient returned to to EOB sit and remained with call light, tray table and cell phone. Will continue per POC as tolerated, total treatment time 16 minutes. Feliberto Garcia, CERTIFIED OPHTHALMIC MEDICAL TECHNICIAN
--- NOTE | 2018-07-17 10:20 | NUR ---
PT WAS ASSISTED TO SHOWER AND BACK TO BED. C/O BACK,ARMS AND BILATERAL KNEE PAIN, RATES PAIN 6 OR 7 ON PAIN SCALE 0-10. MEDICATED WITH NORCO PO PER PRN ORDER, SEE EMAR. CALL LIGHT IN REACH.
--- NOTE | 2018-07-17 11:30 | NUR ---
PT SITTING UP AT SIDE OF BED. BSG-295, SEE EMAR. NO C/O AT THIS TIME. OXYGEN IN USE. CALL LIGHT IN REACH.
[2018-07-17 12:00] VITALS: BP 103/42
--- NOTE | 2018-07-17 13:30 | NUR ---
PHYSICAL THERAPY Patient was approached several times this pm for therapy and upon second attempt was still asleep. Up awakening, patient stated she was too exhausted to participate and requested to stay in bed to rest. Will continue per POC as tolerated. Feliberto Garcia, DECONTAMINATION WORKER
--- NOTE | 2018-07-17 14:00 | NUR ---
RESTING IN BED. RESP-EASY AND REGULAR. OXYGEN IN USE. NO C/O AT THIS TIME. CALL LIGHT IN REACH.
--- NOTE | 2018-07-17 15:30 | NUR ---
PT SITTING UP AT SIDE OF BED, BSG-229, SEE EMAR. VISITORS AT HER SIDE. OXYGEN IN USE. NO C/O AT THIS TIME. CALL LIGHT IN REACH. SEE SHIFT ASSESSMENT.
[2018-07-17 16:00] VITALS: BP 95/50
[2018-07-17 20:00] VITALS: BP 111/44; BP 118/60
--- NOTE | 2018-07-17 21:02 | NUR ---
SPOKE WITH DR. GARCIA AT THIS TIME ABOUT INCREASE IN LASIX. DR. GARCIA STATED SHE HASN'T HAD ADEQUATE OUTPUT. NOTIFIED HIM THAT HER BLOOD PRESSURE IS ALSO RUNNING LOW. HE STATED THIS IS FINE AND TO STILL GIVE THE LASIX. HE ASKED WHAT ELSE SHE IS ON AND NOTIFIED HIM THAT SHE TAKES COZAAR 50 AND LOPRESSOR 25MG. HE STATED HE WOULD REDUCE THE COZAAR TO 25MG
[2018-07-18] VITALS: BP 119/49
--- NOTE | 2018-07-18 01:17 | NUR ---
PT IS SLEEPING. BREATHING IS EASY AND REGULAR WITHOUT DISTRESS. CALL LIGHT WITHIN REACH, WILL MONITOR
--- NOTE | 2018-07-18 01:45 | NUR ---
24 HR chart check completed.
[2018-07-18 06:22] LABS: CREATININE 1.1 mg/dL (0.55-1.02); POTASSIUM 4.1 mmol/L (3.5-5.1)
[2018-07-18 06:47] LABS: INTERNATIONAL NORM RATIO 1.3 (2.0-3.5)
--- NOTE | 2018-07-18 07:20 | NUR ---
BEDSIDE REPORT RECIEVED, INTRODUCED SELF TO PATIENT, WHITE BOARD UPDATED
[2018-07-18 08:00] VITALS: BP 140/76
--- NOTE | 2018-07-18 08:00 | NUR ---
24/ENTIRE HR chart check completed.
--- NOTE | 2018-07-18 08:38 | NUR ---
PATIENT C/O NAUSEA MEDICATED WITH ZOFRAN ORDRED
--- NOTE | 2018-07-18 09:00 | NUR ---
case management visits with patient, patient states she will be going home when able and denies any home needs, she has services from [facility] which will resume when patient is dischaged
--- NOTE | 2018-07-18 09:24 | NUR ---
SPOKE WITH DR.KIMBERLY DANGELO'S OFFICE REGARDING COUNADIN DOSAGE. PER OFFICE, OF June, HER DOSAGE IS 3MG DAILY. UPDATED IN MED REC.
--- NOTE | 2018-07-18 10:15 | NUR ---
PATIENTS IV LEFT ARM INFILTRATED, AREA RED AND SWOLLEN, REMOVED DRESSING AND APPLIED ICE, PLACED NEW IV IN LEFT ARM, PATIENT TOLERATED WELL.
--- NOTE | 2018-07-18 11:21 | NUR ---
PHYSICAL THERAPY Patient was approached several times this am for therapy and was eating breakfast, then patient care, followed by student nursing care. Patient stated she was exhausted and requested therapy check back this afternoon after lunch. Will continue per POC as able. Feliberto Garcia, CYBER WORKFORCE DEVELOPER AND MANAGER
--- NOTE | 2018-07-18 11:30 | NUR ---
GOOD EFFECT FROM MEDICATIIION GIVEN FOR PAIN, PATIENT REPORTS PAIN TO LEGS AND BACK IS A 3 WHICH IS TYPICAL FOR HER.
[2018-07-18 12:00] VITALS: BP 120/58; BP 98/47
--- NOTE | 2018-07-18 13:55 | NUR ---
PHYSICAL THERAPY Patient seen this pm 1:1 for therapy visit and was sitting up on EOB upon therapist arrival. Patient presented with cold pack on L forearm secondary to mild edema / pain from IV site relocation and continuos O2-3L via NC. Patient reports still feeling generalized, global weakness and did not feel comfortable ambulating this session. Patient did however perform seated B LE therex, all planes, x 20 reps each to increase LE strength. Patient also completed 5 consecutive sit to stand transfers in 20.23 seconds without AD and remained EOB sit following treatment with call light, tray table and telephone. Will continue per POC as tolerated, total treatment time 17 minutes. Feliberto Garcia, FOOD RUNNER
[2018-07-18 16:00] VITALS: BP 110/43
[2018-07-18 20:00] VITALS: BP 99/51
--- NOTE | 2018-07-18 23:41 | NUR ---
PATIENT SLEEPING. CALL LIGHT WIHTIN REACH, WILL MONITOR
[2018-07-19] VITALS: BP 110/32; BP 114/48
[2018-07-19 06:27] LABS: CREATININE 1.15 mg/dL (0.55-1.02); POTASSIUM 3.9 mmol/L (3.5-5.1)
[2018-07-19 06:48] LABS: INTERNATIONAL NORM RATIO 1.4 (2.0-3.5)
--- NOTE | 2018-07-19 07:00 | NUR ---
BEDSIDE REPORT RECIEVED, INTRODUCED SELF TO PATIENT, NO NEEDS VOICED AT THIS TIME.
[2018-07-19 08:00] VITALS: BP 100/58; BP 138/56
[2018-07-19 11:40] VITALS: BP 102/41
--- NOTE | 2018-07-19 12:02 | NUR ---
24 HR chart check completed.
--- NOTE | 2018-07-19 13:25 | NUR ---
PHYSICAL THERAPY Patient seen this pm 1:1 for therapy visit and was resting supine in bed upon therapist arrival. Patient reports no pain, with only mild B LE stiffness and transfers supine to stand SBA. Patient ambulates with use of seated 4 wh rollator walker, 60'x 1, CGA, demonstrating slow, steady sanjeev. Patient also with continuos O2-3L via NC, navigating with extended O2 hose ad vonda in room / hallway and needing v/c for improved O2 safety to prevent trippping, stepping on or getting tangled up in hose. Patient returned to EOB sit with c/o of mild B knee soreness. Patient remained EOB with call light, tray table and cell phone. Will continue per POC as tolerated, total treatment time 14 minutes. Feliberto Garcia, WATER SOFTENER SERVICER AND INSTALLER
[2018-07-19 16:02] VITALS: BP 115/47
[2018-07-19 20:00] VITALS: BP 110/48; BP 112/34
--- NOTE | 2018-07-19 23:48 | NUR ---
MEDICATED WITH NORCO FOR C/O LEG PAIN.
[2018-07-20] VITALS: BP 120/45
--- NOTE | 2018-07-20 01:00 | NUR ---
RESTING IN BED WITH EYES CLOSED; NORCO APPARENTLY EFFECTIVE.
--- NOTE | 2018-07-20 06:05 | NUR ---
MEDICATED WITH NORCO FOR C/O LEG PAIN.
[2018-07-20 06:15] LABS: BUN 30 mg/dl (7-24); CHLORIDE 98 mmol/L (98-107); CREATININE 1.06 mg/dL (0.55-1.02); POTASSIUM 3.6 mmol/L (3.5-5.1); SODIUM 139 mmol/L (136-145)
--- NOTE | 2018-07-20 06:30 | NUR ---
BLOOD SUGAR 149; NO COVERAGE REQUIRED.
[2018-07-20 06:44] LABS: INTERNATIONAL NORM RATIO 1.5 (2.0-3.5)
[2018-07-20 08:00] VITALS: BP 94/42
--- NOTE | 2018-07-20 08:00 | NUR ---
ALERT AND ORIENTED, PT STATES THAT EARLIER NORCO HAS BEEN EFFECTIVE, IV SITE RIGHT AC ASYMPT, PT EDUCATED RETO FLUID RESTRICTION, PER PT SHE DRINKS 6-8 BOTTLES OF WATER DAILY +SEVERAL CUPS OF COFFEE
--- NOTE | 2018-07-20 11:09 | NUR ---
DR MOTT AWARE OF LOPRESSOR HELD FOR SBP94
--- NOTE | 2018-07-20 11:27 | NUR ---
MOM PER PTS REQUEST FOR NOT BEING ABLE TO HAVE A "ADEQUATE" BM
[2018-07-20 12:00] VITALS: BP 120/56
--- NOTE | 2018-07-20 14:50 | NUR ---
MOM NOT EFFECTIVE YET
--- NOTE | 2018-07-20 15:37 | NUR ---
Shift chart check completed.24 HR chart check completed.
[2018-07-20 16:00] VITALS: BP 134/58
[2018-07-20 16:19] VITALS: BP 123/39
--- NOTE | 2018-07-20 16:34 | NUR ---
ON ASSESSMENT PATIENT IS RESTING EASILY IN BED. ABDOMEN IS SOFT, OBESE, ROTUND WITH NORMOACTIVE BOWEL SOUNDS. SHE REPORTS BOWEL MOVEMENT EARLIER TODAY. SHE COMPLAINS OF LOWER LEG SORENESS. "THE SWELLING HAS REALLY GONE DOWN". HER LEGS ARE WARM TO TOUCH AND PINK. HEP LOCK INTACT. O2 IN USE VIA CANNULA AT HER NORMAL FLOW. SEE ALL APPROPRIATE INTERVENTIONS.
[2018-07-20 20:00] VITALS: BP 114/46
--- NOTE | 2018-07-20 20:13 | NUR ---
AAOX3 SITTING UP IN BED WITH HOB ELEVATED. 02 INTACT AT 3LPM VIA NASAL CANNULA. LUNGS CLEAR BUT SLIGHTLY DIMINISHED WITH AN OCCASIONAL DRY COUGH NOTED. PT. STATES THAT SHE HAD A BM TODAY. C/O BILATERAL LEG DISCOMFORT RATED AN 8/10. MEDICATED WITH NORCO AT THIS TIME. CALL LIGHT WITHIN REACH.
[2018-07-21] VITALS: BP 112/40
[2018-07-21 05:47] LABS: INTERNATIONAL NORM RATIO 1.6 (2.0-3.5)
--- NOTE | 2018-07-21 06:00 | NUR ---
BLOOD SUGAR 132; NO COVERAGE REQUIRED.
[2018-07-21 06:05] LABS: BUN 28 mg/dl (7-24); CHLORIDE 100 mmol/L (98-107); CREATININE 1.01 mg/dL (0.55-1.02); POTASSIUM 3.7 mmol/L (3.5-5.1); SODIUM 141 mmol/L (136-145)
--- NOTE | 2018-07-21 06:17 | NUR ---
MEDICATED WITH NORCO FOR C/O BILATERAL LEG PAIN RATED A 7/10.
[2018-07-21 08:00] VITALS: BP 100/52
--- NOTE | 2018-07-21 08:30 | NUR ---
24 HR chart check completed.
--- NOTE | 2018-07-21 09:00 | NUR ---
DR JACOB AND TEAM HERE TO ASSESS PATIENT AND DISCUSS PLAN OF CARE
--- NOTE | 2018-07-21 09:30 | NUR ---
SITTING AT BEDSIDE WITH NO DISTRESS NOTED. RESPIRATIONS EASY. LUNGS DIMINISHED. PULSE OX 94% 3L. CLAIMS OCCASIONAL COUGH. TUBI-CAR BRACER IN PLACE. CALL LIGHT WITHIN REACH. NO VOICED COMPLAINTS
[2018-07-21 12:00] VITALS: BP 109/47
--- NOTE | 2018-07-21 12:00 | NUR ---
REMAINS AT BEDSIDE PLAYING ON I-PAD. NO DISTRESS NOTED. NO VOICED COMPLAINTS
[2018-07-21 16:00] VITALS: BP 116/45
[2018-07-21 20:00] VITALS: BP 121/42
[2018-07-22] VITALS: BP 102/58
[2018-07-22 00:35] VITALS: BP 102/50
--- NOTE | 2018-07-22 02:14 | NUR ---
PT ASLEEP IN BED. RESPIRATIONS EASY. O2 IN USE VIA 2L NC. NO S/S OF DISTRESS NOTED. WILL MONITOR. CALL LIGHT IN REACH.
[2018-07-22 06:17] LABS: BUN 24 mg/dl (7-24); CHLORIDE 100 mmol/L (98-107); POTASSIUM 3.5 mmol/L (3.5-5.1); SODIUM 140 mmol/L (136-145)
[2018-07-22 07:16] LABS: INTERNATIONAL NORM RATIO 1.6 (2.0-3.5)
[2018-07-22 08:00] VITALS: BP 124/50
--- NOTE | 2018-07-22 08:38 | NUR ---
PHYSICAL THERAPY Patient wants therapy to come back later in the morning. Still sleeping. Will check back later. SARABJIT CLEMENTE LABORER LIVESTOCK
[2018-07-22 12:00] VITALS: BP 99/81
--- NOTE | 2018-07-22 14:00 | NUR ---
Cardiac Monitor Technician in to see patient. No new needs or request at this time. When medically stable she will be discharged to home with the resumption of her services from [facility].
--- NOTE | 2018-07-22 15:10 | NUR ---
PHYSICAL THERAPY CO-SIGN I approve of the Phyical Therapy notes written above. TELLY GREENWOOD PT
[2018-07-22 16:00] VITALS: BP 123/50
[2018-07-22 20:00] VITALS: BP 108/44
--- NOTE | 2018-07-22 20:00 | NUR ---
SITTING AT BEDSIDE PLAYING ON IPAD. NO DISTRESS NOTED. RESPIRATIONS EASY. LUNGS DIMINISHED, CLEAR. PULSE OX 93% 2L. INFREQUENT COUGH. TRACE BLE EDEMA, CONTINUES TO DECLINE TEDS. CALL LIGHT WITHIN REACH. NO VOICED COMPLAINTS
--- NOTE | 2018-07-22 20:05 | NUR ---
24 HR chart check completed.
--- NOTE | 2018-07-22 20:58 | NUR ---
REQUESTED AND RECEIVED NORCO PER PRN ORDER FOR COMPLAINTS OF BLE PAIN RATING AN 8. CALL LIGHT WITHIN REACH. WILL MONITOR FOR EFFECTIVENESS
--- NOTE | 2018-07-22 23:00 | NUR ---
EARLIER MEDS EFFECTIVE. SLEEPING
[2018-07-23] VITALS: BP 117/50
--- NOTE | 2018-07-23 00:30 | NUR ---
SLEEPING. NO DISTRESS NOTED. RESPIRATIONS EASY. VSS. CALL LIGHT WITHIN REACH.
--- NOTE | 2018-07-23 02:30 | NUR ---
SLEEPING. O2 IN USE. CALL LIGHT WITHIN REACH
--- NOTE | 2018-07-23 06:00 | NUR ---
slept throughout night with no distress noted. respirations easy. o2 in use. call light within reach. no voiced complaints this shift
[2018-07-23 06:30] LABS: BUN 22 mg/dl (7-24); CHLORIDE 102 mmol/L (98-107); CREATININE 0.91 mg/dL (0.55-1.02); POTASSIUM 3.4 mmol/L (3.5-5.1); SODIUM 141 mmol/L (136-145)
[2018-07-23 06:57] LABS: INTERNATIONAL NORM RATIO 1.6 (2.0-3.5)
[2018-07-23 08:00] VITALS: BP 114/54
--- NOTE | 2018-07-23 09:30 | NUR ---
CALL PLACED TO DR GARCIA, PER DR SPARKS REQUEST. PLAN DISCUSSED AND GIVEN TO DR SPARKS.
--- NOTE | 2018-07-23 11:17 | NUR ---
PHYSICAL THERAPY CO-SIGN I approve of the Phyical Therapy notes written above. TELLY GREENWOOD PT
--- NOTE | 2018-07-23 11:30 | NUR ---
Atv Mechanic in to see patient. Discussed home health care services and she refuses. Instructed she has a lot of medication changes, would she need help with her medications. She stated yes and is agreeable to a home health nurse. When provided with a list of agencies she chose [facility] as she has had them in the past. When medically stable she will be discharged to home with the resumption of her [facility] and [facility] services.
[2018-07-23 12:00] VITALS: BP 107/41
--- NOTE | 2018-07-23 12:15 | NUR ---
Patient agreeable to home heatlh, when provided a list of agencies, patient chooses [facility]. Received order, faxed referral.
--- NOTE | 2018-07-23 13:23 | NUR ---
PHYSICAL THERAPY Patient declined therapy this afternoon, stating that she was going home this afternoon and doesn't want to do therapy at this time. SARABJIT CLEMENTE SUPERVISOR ESTERS AND EMULSIFIERS
--- NOTE | 2018-07-23 13:29 | NUR ---
Faxed [facility] face to face
[2018-07-23] MEDS ORDERED: LOSARTAN POTASS25 M1 PO (14:03)
[2018-07-23] MEDS ORDERED: COUMADIN5 M2 PO (14:03)
[2018-07-23] MEDS ORDERED: TORSEMIDE100 MG PO (14:03)
--- NOTE | 2018-07-23 16:03 | NUR ---
Discharge instructions reviewed with patient/family. Patient receptive and verbalizes understanding. Follow-up care arranged. Written instructions given to patient/family. IV site removed. Pt trasnported to lobby via wheelchair. DIONI KIDD
--- NOTE | 2018-07-24 18:04 | NUR ---
PHYSICAL THERAPY CO-SIGN I approve of the Phyical Therapy notes written above. SADIA CONTRERAS
[2018-09-11] MEDS ORDERED: SYMB160 INH (20:29)
[2018-09-12] MEDS ORDERED: COUMADIN4 M2 PO (01:27)
[2018-09-12] MEDS ORDERED: LORATADINE10 M3 PO (01:29)
[2018-09-12] MEDS ORDERED: B12,B-12,B 12500 MC1 PO (01:30)
[2018-09-13] MEDS ORDERED: TORSEMIDE100 MG PO (14:19)
[2018-09-13] MEDS ORDERED: KLOR-CON M2020 ME1 PO (14:19)
== END 2018-07-23 16:03 | disposition home health service (06) | DRG 291 ==
LOC: ED 17:11 → EDHOLD 18:41 → 4E 18:41 → 5E 19:13 → 4E 19:22
PROVIDERS: Emergency Medicine; Family Medicine; Internal Medicine; ADMIT Internal Medicine
DX: I13.0 Hypertensive heart and chronic kidney disease with heart failure and stage 1 through stage 4 chronic kidney disease, or unspecified chronic kidney disease (principal); N17.0 Acute kidney failure with tubular necrosis; I50.33 Acute on chronic diastolic (congestive) heart failure; J18.9 Pneumonia, unspecified organism; I24.9 Acute ischemic heart disease, unspecified; Z68.41 Body mass index [BMI] 40.0-44.9, adult; M94.0 Chondrocostal junction syndrome [Tietze]; I48.0 Paroxysmal atrial fibrillation; I25.10 Atherosclerotic heart disease of native coronary artery without angina pectoris; N18.3 Chronic kidney disease, stage 3 (moderate); R79.1 Abnormal coagulation profile; K21.9 Gastro-esophageal reflux disease without esophagitis; F41.9 Anxiety disorder, unspecified; Z96.649 Presence of unspecified artificial hip joint; M19.90 Unspecified osteoarthritis, unspecified site; R25.2 Cramp and spasm; E66.01 Morbid (severe) obesity due to excess calories; E13.22 Other specified diabetes mellitus with diabetic chronic kidney disease; R74.0 Nonspecific elevation of levels of transaminase and lactic acid dehydrogenase [LDH]; G43.909 Migraine, unspecified, not intractable, without status migrainosus; E13.65 Other specified diabetes mellitus with hyperglycemia; J44.9 Chronic obstructive pulmonary disease, unspecified; E03.9 Hypothyroidism, unspecified; E78.5 Hyperlipidemia, unspecified; Z86.73 Personal history of transient ischemic attack (TIA), and cerebral infarction without residual deficits; Z88.1 Allergy status to other antibiotic agents; Z88.6 Allergy status to analgesic agent; Z85.038 Personal history of other malignant neoplasm of large intestine; Z90.49 Acquired absence of other specified parts of digestive tract; Z90.710 Acquired absence of both cervix and uterus; Z98.42 Cataract extraction status, left eye; Z98.41 Cataract extraction status, right eye; Z87.891 Personal history of nicotine dependence; Z82.49 Family history of ischemic heart disease and other diseases of the circulatory system; Z83.3 Family history of diabetes mellitus; Z95.5 Presence of coronary angioplasty implant and graft; Z79.01 Long term (current) use of anticoagulants; Z79.82 Long term (current) use of aspirin; Z79.899 Other long term (current) drug therapy

== ENCOUNTER → 2018-09-30 | Outpatient (CLI) | payer MEDICARE, OTHER, MEDICAID ==
[~2018-09-30] MED LIST changes: +ALPHAGAN-P 0.2%5 ML OPH; +B12,B-12,B 12500 MC1 PO; +COUMADIN4 M2 PO; +FEROSUL325 MG PO; +KLOR-CON M2020 ME1 PO; +LORATADINE10 M3 PO; +LOSARTAN POTASS25 M1 PO; +NORCO 7.5-3251 EACH PO; +SYMB160 INH; +TESSALON PERLE100 MG PO; +TORSEMIDE100 MG PO; +TRAD5TAB1 PO; +VITAMIN D35000 UNIT PO; +XALATAN 0.005%2.5 ML INTRAOC
[2018-09-30 13:17] LABS: INTERNATIONAL NORM RATIO 1.9 (2.0-3.5)
== END | disposition home or self-care (01) ==
LOC: LAB 12:10
PROVIDERS: Nurse Practitioner Primary Care
DX: J44.9 Chronic obstructive pulmonary disease, unspecified (principal); I48.2 Chronic atrial fibrillation; I11.0 Hypertensive heart disease with heart failure; I50.9 Heart failure, unspecified; E11.9 Type 2 diabetes mellitus without complications; F17.200 Nicotine dependence, unspecified, uncomplicated; R09.89 Other specified symptoms and signs involving the circulatory and respiratory systems; Z79.01 Long term (current) use of anticoagulants

== ENCOUNTER 2018-11-27 09:56 | Inpatient (IN) | payer MEDICARE, OTHER, MEDICAID ==
[~2018-11-27] VITALS: Ht 170.2 cm; Wt 114.8 kg
--- NOTE | ~2018-11-27 | EKG ---
[place], [place] ELECTROCARDIOGRAM REPORT NAME: RADHA SAGE UNIT #: [id number] ROOM: 508 DOCTOR: EM DRAFT REPORT BIRTHDATE: [birth year] [facility] Test Date: 2018-11-27 Test Time: 10:40:53 Pat Name: RADHA SAGE Department: Room: 508 Gender: F Peritoneal Dialysis Registered Nurse: : 1935 Requested By: DANIEL MEADOWS PA-C Order Number: [id number] Reading MD: Sommer Faulkner MD Measurements Intervals [place] Rate: 61 P: 48 PA: 218 QRS: 54 QRSD: 106 T: 44 QT: 436 QTc: 440 Interpretive Statements Sinus rhythm Borderline prolonged PA interval Low voltage, precordial leads Compared to ECG 09/11/2018 21:03:46 T-wave abnormality no longer present Electronically Signed On 11-30-2018 10:30:07 PDT by Sommer Faulkner MD CM:EKGRPT:ELECTROCARDIOGRAM REPORT 1040 1030 DANIEL MEADOWS PA-C EPIPHANY DRAFT REPORT DANIEL MEADOWS PA-C
[~2018-11-27 09:56] MED LIST changes: -COUMADIN4 M2 PO; +Coumadin3 MG PO
[2018-11-27 10:09] VITALS: BP 126/52
--- NOTE | 2018-11-27 10:11 | NUR ---
PATIENT DENIES ANY WOUNDS AT THIS TIME. A&OX4.
[2018-11-27 10:39] LABS: BASO % 0.6 % (0.0-1.0); EOS # 0.1 10*3/uL (0.0-0.4); EOS % 2.5 % (1.0-4.0); HEMATOCRIT 36.8 % (37.0-47.0); LYMPH # 0.8 10*3/uL (1.3-4.4); LYMPH % 16.8 % (27.0-41.0); MEAN CELL VOLUME 95.3 fl (81.0-99.0); MEAN CORPUSCULAR HGB 31.1 pg (27.0-31.0); MEAN CORPUSCULAR HGB CONC 32.6 g/dl (33.0-37.0); MEAN PLATELET VOLUME 9.6 fl (9.6-12.3); MONO # 0.8 10*3/uL (0.1-1.0); MONO % 16.6 % (3.0-9.0); NEUT # 3.1 10*3/uL (2.3-7.9); NEUT % 63.3 % (47.0-73.0); PLATELET COUNT AUTOMATED 177 10*3/uL (130-400); RED BLOOD COUNT 3.86 10*6/uL (4.10-5.10); RED CELL DISTRI WIDTH 15.4 % (0-14.5); WHITE BLOOD COUNT 4.9 10*3/uL (4.8-10.8)
[2018-11-27 10:49] LABS: INTERNATIONAL NORM RATIO 2.2 (2.0-3.5)
[2018-11-27 10:54] LABS: ALBUMIN 3.2 gm/dl (3.1-4.5); ALKALINE PHOSPHATASE 62 U/L (45-117); BUN 30 mg/dl (7-24); CHLORIDE 105 mmol/L (98-107); CREATININE 1.21 mg/dL (0.55-1.02); LIPASE 94 U/L (73-393); SGOT/AST 20 IU/L (3-35); SGPT/ALT 30 U/L (12-78); SODIUM 141 mmol/L (136-145); TOTAL PROTEIN 6.9 gm/dL (6.4-8.2)
[2018-11-27 10:57] LABS: TROPONIN I < 0.015 ng/ml (<0.045)
--- NOTE | 2018-11-27 11:06 | NUR ---
PATIENT ALSO STATED THAT SHE HAS BEEN HAVING SWELLING IN HER R HAND OVER THE PAST COUPLE OF DAYS. +1 EDEMA R HAND.
[2018-11-27 11:33] LABS: BILIRUBIN NEGATIVE (NEGATIVE); BLOOD TRACE-INTACT (NEGATIVE); CLARITY SL CLOUDY (CLEAR); COLOR YELLOW (YELLOW); GLUCOSE NEGATIVE (NEGATIVE); KETONE NEGATIVE (NEGATIVE); LEUKO ESTERASE 2+ (NEGATIVE); NITRITE NEGATIVE (NEGATIVE); SPECIFIC GRAVITY <= 1.005 (1.005-1.030); UROBILINOGEN 0.2 E.U./dl (0.2-1.0)
[2018-11-27 11:42] VITALS: BP 110/60
[2018-11-27 11:42] LABS: BACTERIA 1+; WBC 21-30 wbc/hpf (0-5)
--- NOTE | 2018-11-27 11:44 | NUR ---
PT IS RESTING IN BED, NO SIGNS OF ACUTE DISTRESS AT THIS TIME. ALL VITAL SIGNS ARE STABLE. FAMILY IS AT BEDSIDE. BED IS IN LOW POSITION WITH SIDE RAILS UP. WILL CONTINUE TO MONITOR.
[2018-11-27 12:35] VITALS: BP 116/53
--- NOTE | 2018-11-27 12:35 | NUR ---
Time: 1234 A 83 year old FEMALE admitted to 5E under services of JAYDE OLIVARES DO, Pt. arrived via bed from ER. Chief complaint: UTI. ELGIN KING
--- NOTE | 2018-11-27 15:47 | NUR ---
NOTIFIED DANIEL SHETH OF MEDICATIONS UPDATED AND NEEDED ORDERED.
[2018-11-27 16:00] VITALS: BP 110/44
--- NOTE | 2018-11-27 16:30 | NUR ---
RESTING IN BED WITH EYES CLOSED. RESP-EASY AND REGULAR. NO C/O AT THIS TIME. CALL LIGHT IN REACH. SEE SHIFT ASSESSMENT.
[2018-11-27] MEDS ORDERED: COZAAR25 M1 PO (17:42)
[2018-11-27] MEDS ORDERED: DOXEPIN HCL10 MG PO (17:43)
--- NOTE | 2018-11-27 17:52 | NUR ---
CALLED DR. BARTH AWARE PT MEDS UPDATED WITH OTHER MEDICATIONS AND NEED ORDERED. SHE WILL LOOK
--- NOTE | 2018-11-27 17:55 | NUR ---
TOLERATED ROUTINE MED WITH NO PROBLEM. NO C/O AT THIS TIME. OXYGEN IN USE. CALL LIGHT IN REACH.
[2018-11-27 20:00] VITALS: BP 101/48
--- NOTE | 2018-11-27 23:15 | NUR ---
PLACED PATIENT ON CPAP 8, 35%O2. PATIENT STATES THAT FAMILY WILL BRING IN HER HOME CPAP TOMORROW
[2018-11-28] VITALS: BP 100/54
[2018-11-28 06:42] LABS: BASO % 0.6 % (0.0-1.0); EOS # 0.1 10*3/uL (0.0-0.4); EOS % 2.5 % (1.0-4.0); HEMATOCRIT 34.1 % (37.0-47.0); HEMOGLOBIN 11.1 g/dl (12.0-16.0); LYMPH # 1.6 10*3/uL (1.3-4.4); MEAN CELL VOLUME 93.2 fl (81.0-99.0); MEAN CORPUSCULAR HGB 30.3 pg (27.0-31.0); MEAN CORPUSCULAR HGB CONC 32.6 g/dl (33.0-37.0); MEAN PLATELET VOLUME 10.4 fl (9.6-12.3); MONO # 0.8 10*3/uL (0.1-1.0); MONO % 15.2 % (3.0-9.0); NEUT # 2.7 10*3/uL (2.3-7.9); NEUT % 51.5 % (47.0-73.0); PLATELET COUNT AUTOMATED 183 10*3/uL (130-400); RED BLOOD COUNT 3.66 10*6/uL (4.10-5.10); RED CELL DISTRI WIDTH 15.2 % (0-14.5); WHITE BLOOD COUNT 5.3 10*3/uL (4.8-10.8)
[2018-11-28 07:13] LABS: ALBUMIN 2.9 gm/dl (3.1-4.5); POTASSIUM 3.5 mmol/L (3.5-5.1)
[2018-11-28 07:20] LABS: CREATININE 1.07 mg/dL (0.55-1.02); PHOSPHOROUS 2.6 mg/dL (2.5-4.9); TOTAL PROTEIN 6.2 gm/dL (6.4-8.2)
[2018-11-28 08:00] VITALS: BP 104/53
--- NOTE | 2018-11-28 10:00 | NUR ---
Coil Winder Hand in to talk to patient. Patient states lives at home alone with her family checking in on her. There are no steps in the home. Physician: Sachin Villa Pharmacy: [facility] in [place] Home health services: [facility] 7 days a week from 9a-1p Patient's level of ADLs: minimal assistance Patient has working utilities: yes DME: walker, cane, seated walker, O2 @ 2L nc, portable O2 tanks, O2 supplier [facility] Follow-up physician's appointment after d/c: will be made by the hospitalist nurse director upon discharge Does patient want to access PORTAL?: no Discharge plan discussed with patient. She lives at [facility] in [place]. She does live alone but family checks in on her frequently. She is independent in her ADLs and ambulates with either a walker or a cane. Discussed home health care services and she currently has [facility] 7 days a week from 9a - 1p. She denies any other home needs at this time. When medically stable she will be discharged to home. Her daughter will provide transportation on discharge. SADIA LOYA
[2018-11-28 12:00] VITALS: BP 106/64
--- NOTE | 2018-11-28 12:08 | NUR ---
Occupational Therapy evaluation completed on 5 with full eval to follow. Precautions include fall risk,ww use,assisted with ADLs and mobility, moderate complexity level 40533. Recommend OT per pOC and home with home health SN, OT,PT. Patient and family in agreement. Thank you. Gerard Ervin OTR/L
--- NOTE | 2018-11-28 12:11 | NUR ---
PHYSICAL THERAPY Physical therapy evaluation completed, 5E. Full details and evaluation to follow. Low complexity determined after evaluation and chart review, [id number]. PT will work on strength, endurance, gait, balance and transfers. Recommending Home health at discharge. Thank you Rocio Lombardo, PT, DPT
--- NOTE | 2018-11-28 13:09 | NUR ---
PT. ORDERED A CPAP FOR USE. PT. DOES NOT KNOW HER SETTING. DR. RAHMAN CALLED,STATES WE MAY TITRATE COMFORT.
--- NOTE | 2018-11-28 15:29 | NUR ---
Nursing screen received and occupational therapy referral received. Thank you. Lucille Ervin OTR/L
[2018-11-28 16:00] VITALS: BP 105/48
[2018-11-28 20:00] VITALS: BP 115/50
--- NOTE | 2018-11-28 20:44 | NUR ---
AWAKE/ALERT FOR SHIFT ASSESSMENT. RESPIRATIONS EASY/REG ON 2LNC. PLEASANT AND COOPERATIVE WITH CARE. C/O CHRONIC BACK PAIN, REQUESTING NORCO WITH BEDTIME MEDICATIONS. NO FURTHER COMPLAINTS. CALL LIGHT IN REACH. WILL MONITOR.
[2018-11-28 22:00] VITALS: BP 115/50
[2018-11-29] VITALS: BP 124/49
[2018-11-29 06:26] LABS: BASO % 0.5 % (0.0-1.0); EOS # 0.2 10*3/uL (0.0-0.4); EOS % 3.4 % (1.0-4.0); HEMATOCRIT 33.6 % (37.0-47.0); HEMOGLOBIN 10.9 g/dl (12.0-16.0); LYMPH # 1.2 10*3/uL (1.3-4.4); MEAN CELL VOLUME 95.5 fl (81.0-99.0); MEAN CORPUSCULAR HGB CONC 32.4 g/dl (33.0-37.0); MONO # 0.6 10*3/uL (0.1-1.0); MONO % 13.2 % (3.0-9.0); NEUT # 2.5 10*3/uL (2.3-7.9); NEUT % 55.4 % (47.0-73.0); PLATELET COUNT AUTOMATED 167 10*3/uL (130-400); RED BLOOD COUNT 3.52 10*6/uL (4.10-5.10); RED CELL DISTRI WIDTH 15.2 % (0-14.5); WHITE BLOOD COUNT 4.4 10*3/uL (4.8-10.8)
[2018-11-29 06:40] LABS: BUN 22 mg/dl (7-24); CHLORIDE 106 mmol/L (98-107); POTASSIUM 3.7 mmol/L (3.5-5.1); SODIUM 141 mmol/L (136-145)
[2018-11-29 07:37] LABS: INTERNATIONAL NORM RATIO 1.9 (2.0-3.5)
[2018-11-29 07:50] VITALS: BP 134/60
--- NOTE | 2018-11-29 07:50 | NUR ---
PT C/O BACK PAIN, RATES PAIN 7 OR 8 ON PAIN SCALE, SEE EMAR. ALSO C/O HEADACHE, MEDICATED WITH NORCO PO PER PRN ORDER, SEE EMAR. CALL LIGHT IN REACH. TOLERATED ROUTIE MED WITH NO PROBLEM. SEE SHIFT ASSESSMENT.
[2018-11-29 08:00] VITALS: BP 133/49
--- NOTE | 2018-11-29 08:20 | NUR ---
RESTING IN BED WITH EYES CLOSED. STATES MEDICATION HELPS. CALL LIGHT IN REACH.
--- NOTE | 2018-11-29 08:30 | NUR ---
Timber Incisor Operator in to see patient. Discusses home health care services with patient and she is agreeable. When provided with a list of agencies she chose [facility] as she has had them previously. She will also resume her [employer]. When medically stable she will be discharged to home with home health care services.
--- NOTE | 2018-11-29 10:15 | NUR ---
PHYSICAL THERAPY Patient was resting supine in bed this am with a family visitor present upon therapist arrival. Patient requested to be seen later today as to allow time for visitation. Will continue per POC as tolerated. Feliberto Garcia, HIPOLITO
--- NOTE | 2018-11-29 11:08 | NUR ---
CALLED DR. RICKS ANSWERING SERVICE. PER THEM DR. CARLISLE IS COVERING THEY WILL NOTIFY HER.
--- NOTE | 2018-11-29 11:33 | NUR ---
PHYSICAL THERAPY Physical therapy duplicate referral received. Pt is already on caseload. Continue therapy POC. Thank you. Rocio Lombardo, PT, DPT
[2018-11-29 12:00] VITALS: BP 109/52
--- NOTE | 2018-11-29 12:00 | NUR ---
RESTING IN BED. NO C/O AT THIS TIME. CALL LIGHT IN REACH.
[2018-11-29 16:00] VITALS: BP 129/54
--- NOTE | 2018-11-29 16:08 | NUR ---
PHYSICAL THERAPY CO-SIGN I approve of the Physical Therapy notes written above. JOSEPH SANDERS, PT, DPT
--- NOTE | 2018-11-29 16:20 | NUR ---
PT UP TO BATHROOM WITH WALKER AND ASSITANCE OF NURSE. GAIT STEADY. NO COMPLAINTS VOICED. RESPIRATIONS UNLABORED. PT ASSISTED BACK TO BED. BLOOD SUGAR OBTAINED, 168-WILL COVER ACCORDING TO S/S. ALL SAFETY MEASURES IN PLACE. CALL LIGHT IN REACH.
[2018-11-29 20:00] VITALS: BP 114/70
[2018-11-30] VITALS: BP 104/47
--- NOTE | 2018-11-30 01:39 | NUR ---
19:19 DISCUSSED BIPAP WITH PT. SHE REFUSES TO WEAR THE BIPAP. SHE STATED IT IS TO LOUD AND ALARMS.
[2018-11-30 07:16] LABS: BASO % 0.7 % (0.0-1.0); EOS # 0.2 10*3/uL (0.0-0.4); EOS % 4.7 % (1.0-4.0); HEMATOCRIT 35.5 % (37.0-47.0); HEMOGLOBIN 11.4 g/dl (12.0-16.0); LYMPH # 1.2 10*3/uL (1.3-4.4); LYMPH % 27.7 % (27.0-41.0); MEAN CELL VOLUME 95.2 fl (81.0-99.0); MEAN CORPUSCULAR HGB 30.6 pg (27.0-31.0); MEAN CORPUSCULAR HGB CONC 32.1 g/dl (33.0-37.0); MEAN PLATELET VOLUME 9.9 fl (9.6-12.3); MONO # 0.7 10*3/uL (0.1-1.0); MONO % 16.5 % (3.0-9.0); NEUT # 2.2 10*3/uL (2.3-7.9); NEUT % 50.2 % (47.0-73.0); PLATELET COUNT AUTOMATED 180 10*3/uL (130-400); RED BLOOD COUNT 3.73 10*6/uL (4.10-5.10); RED CELL DISTRI WIDTH 15.4 % (0-14.5); WHITE BLOOD COUNT 4.3 10*3/uL (4.8-10.8)
[2018-11-30 07:21] LABS: INTERNATIONAL NORM RATIO 1.8 (2.0-3.5)
[2018-11-30 07:39] LABS: BUN 17 mg/dl (7-24); CHLORIDE 109 mmol/L (98-107); POTASSIUM 3.9 mmol/L (3.5-5.1); SODIUM 143 mmol/L (136-145)
[2018-11-30 07:40] LABS: CREATININE 0.87 mg/dL (0.55-1.02)
[2018-11-30 08:00] VITALS: BP 107/50
--- NOTE | 2018-11-30 08:30 | NUR ---
Patient resting quietly with no c/o discomfort. Respirations easy and regular. Vital signs stable. No overt distress. DIONI GALINDO R
[2018-11-30] MEDS ORDERED: GABAPENTIN600 MG PO (11:27)
--- NOTE | 2018-11-30 12:00 | NUR ---
Discharge instructions reviewed with patient/family. Patient receptive and verbalizes understanding. Follow-up care arranged. Written instructions given to patient/family. DIONI GALINDO
--- NOTE | 2018-12-02 08:04 | NUR ---
Faxed home health order to [facility]
== END 2018-11-30 12:00 | disposition home health service (06) | DRG 689 ==
LOC: ED 09:56 → 5E 11:53 → EDHOLD 11:53 → 5E 12:47
PROVIDERS: Physician Assistant; Registered Nurse; Student in an Organized Health Care Education/Training Program; ADMIT Internal Medicine
PROC: 5A09357 Assistance with Respiratory Ventilation, Less than 24 Consecutive Hours, Continuous Positive Airway Pressure (ICD-10-PCS; principal; 2018-11-28)
DX: N30.01 Acute cystitis with hematuria (principal); N17.0 Acute kidney failure with tubular necrosis; I50.32 Chronic diastolic (congestive) heart failure; I48.21 Permanent atrial fibrillation; J96.11 Chronic respiratory failure with hypoxia; I13.0 Hypertensive heart and chronic kidney disease with heart failure and stage 1 through stage 4 chronic kidney disease, or unspecified chronic kidney disease; I25.10 Atherosclerotic heart disease of native coronary artery without angina pectoris; J44.9 Chronic obstructive pulmonary disease, unspecified; E86.0 Dehydration; E03.9 Hypothyroidism, unspecified; E78.5 Hyperlipidemia, unspecified; E55.9 Vitamin D deficiency, unspecified; N18.3 Chronic kidney disease, stage 3 (moderate); G43.909 Migraine, unspecified, not intractable, without status migrainosus; E11.65 Type 2 diabetes mellitus with hyperglycemia; K21.9 Gastro-esophageal reflux disease without esophagitis; E11.22 Type 2 diabetes mellitus with diabetic chronic kidney disease; E11.40 Type 2 diabetes mellitus with diabetic neuropathy, unspecified; R79.1 Abnormal coagulation profile; Z88.1 Allergy status to other antibiotic agents; Z88.5 Allergy status to narcotic agent; Z79.01 Long term (current) use of anticoagulants; Z90.49 Acquired absence of other specified parts of digestive tract; Z90.710 Acquired absence of both cervix and uterus; Z83.3 Family history of diabetes mellitus; Z82.49 Family history of ischemic heart disease and other diseases of the circulatory system

== ENCOUNTER → 2019-02-24 | Outpatient (CLI) | payer MEDICARE, OTHER, MEDICAID ==
[~2019-02-24] MED LIST changes: +COZAAR25 M1 PO; +DOXEPIN HCL10 MG PO; +GABAPENTIN600 MG PO
[2019-02-24 12:39] LABS: BILIRUBIN NEGATIVE (NEGATIVE); BLOOD NEGATIVE (NEGATIVE); CLARITY CLEAR (CLEAR); COLOR YELLOW (YELLOW); GLUCOSE NEGATIVE (NEGATIVE); KETONE NEGATIVE (NEGATIVE); LEUKO ESTERASE NEGATIVE (NEGATIVE); NITRITE NEGATIVE (NEGATIVE); PH 6.5 (5.0-9.0); UROBILINOGEN 0.2 E.U./dl (0.2-1.0)
[2019-02-24 13:11] LABS: ALBUMIN 3.3 gm/dl (3.1-4.5); CREATININE 1.32 mg/dL (0.55-1.02); PHOSPHOROUS 2.7 mg/dL (2.5-4.9); POTASSIUM 3.8 mmol/L (3.5-5.1)
== END | disposition home or self-care (01) ==
LOC: LAB 11:52
PROVIDERS: Internal Medicine Nephrology
DX: N17.9 Acute kidney failure, unspecified (principal)

== ENCOUNTER → 2019-04-02 | Outpatient (CLI) | payer MEDICARE, OTHER, MEDICAID ==
[2019-04-02 11:55] LABS: BASO % 0.8 % (0.0-1.0); EOS # 0.1 10*3/uL (0.0-0.4); EOS % 2.8 % (1.0-4.0); HEMOGLOBIN 12.4 g/dl (12.0-16.0); LYMPH # 1.1 10*3/uL (1.3-4.4); LYMPH % 22.7 % (27.0-41.0); MEAN CELL VOLUME 95.6 fl (81.0-99.0); MEAN CORPUSCULAR HGB 30.4 pg (27.0-31.0); MEAN CORPUSCULAR HGB CONC 31.8 g/dl (33.0-37.0); MEAN PLATELET VOLUME 10.3 fl (9.6-12.3); MONO # 0.8 10*3/uL (0.1-1.0); MONO % 16.1 % (3.0-9.0); NEUT # 2.9 10*3/uL (2.3-7.9); NEUT % 57.4 % (47.0-73.0); PLATELET COUNT AUTOMATED 196 10*3/uL (130-400); RED BLOOD COUNT 4.08 10*6/uL (4.10-5.10); RED CELL DISTRI WIDTH 13.8 % (0-14.5)
[2019-04-02 12:24] LABS: POTASSIUM 3.9 mmol/L (3.5-5.1)
[2019-04-02 12:40] LABS: ALBUMIN 3.4 gm/dl (3.1-4.5); CREATININE 1.41 mg/dL (0.55-1.02); TOTAL PROTEIN 6.9 gm/dL (6.4-8.2)
[2019-04-02 13:28] LABS: VITAMIN D, 25-HYDROXY 54.5 ng/mL (30-100)
== END | disposition home or self-care (01) ==
LOC: US 10:37
PROVIDERS: Nurse Practitioner Primary Care
DX: I70.212 Atherosclerosis of native arteries of extremities with intermittent claudication, left leg (principal); E78.00 Pure hypercholesterolemia, unspecified; I10 Essential (primary) hypertension; E55.9 Vitamin D deficiency, unspecified; E11.22 Type 2 diabetes mellitus with diabetic chronic kidney disease; E53.8 Deficiency of other specified B group vitamins

== ENCOUNTER → 2019-09-22 | Outpatient (CLI) | payer MEDICARE, OTHER, MEDICAID ==
[2019-09-22 13:19] LABS: BILIRUBIN NEGATIVE (NEGATIVE); CLARITY CLEAR (CLEAR); COLOR YELLOW (YELLOW); GLUCOSE NEGATIVE (NEGATIVE); KETONE NEGATIVE (NEGATIVE)
[2019-09-22 13:20] LABS: BLOOD NEGATIVE (NEGATIVE); LEUKO ESTERASE TRACE (NEGATIVE); NITRITE NEGATIVE (NEGATIVE); SPECIFIC GRAVITY 1.015 (1.005-1.030); UROBILINOGEN 0.2 E.U./dl (0.2-1.0)
[2019-09-22 13:37] LABS: URINE CREATININE RANDOM 69.5 mg/dL
[2019-09-22 13:38] LABS: BACTERIA TRACE
[2019-09-22 13:40] LABS: ALBUMIN 3.2 gm/dl (3.1-4.5); CREATININE 1.5 mg/dL (0.55-1.02); POTASSIUM 3.9 mmol/L (3.5-5.1)
== END | disposition home or self-care (01) ==
LOC: LAB 12:03
PROVIDERS: Internal Medicine Nephrology
DX: N17.9 Acute kidney failure, unspecified (principal); Z79.899 Other long term (current) drug therapy

== ENCOUNTER 2019-10-06 13:00 | Observation (INO) | payer MEDICARE, OTHER, MEDICAID ==
[~2019-10-06] VITALS: Ht 172.7 cm; Wt 118.5 kg
[2019-10-06 13:04] VITALS: BP 157/61
--- NOTE | 2019-10-06 13:20 | NUR ---
ASSISTED PT BACK FROM THE RESTROOM, PT NOSE STARTED TO BLEED AGAIN, SHAKILA CUTLER NOTIFIED.
[2019-10-06 13:25] LABS: BASO % 0.6 % (0.0-1.0); EOS # 0.1 10*3/uL (0.0-0.4); EOS % 2.7 % (1.0-4.0); HEMATOCRIT 33.1 % (37.0-47.0); LYMPH # 0.9 10*3/uL (1.3-4.4); LYMPH % 17.1 % (27.0-41.0); MEAN CELL VOLUME 96.5 fl (81.0-99.0); MEAN CORPUSCULAR HGB 29.7 pg (27.0-31.0); MEAN CORPUSCULAR HGB CONC 30.8 g/dl (33.0-37.0); MEAN PLATELET VOLUME 9.5 fl (9.6-12.3); MONO # 0.6 10*3/uL (0.1-1.0); MONO % 12.5 % (3.0-9.0); NEUT # 3.4 10*3/uL (2.3-7.9); NEUT % 66.9 % (47.0-73.0); PLATELET COUNT AUTOMATED 205 10*3/uL (130-400); RED BLOOD COUNT 3.43 10*6/uL (4.10-5.10); RED CELL DISTRI WIDTH 14.8 % (0-14.5); WHITE BLOOD COUNT 5.1 10*3/uL (4.8-10.8)
[2019-10-06 13:40] LABS: ALBUMIN 3.1 gm/dl (3.1-4.5); CREATININE 1.13 mg/dL (0.55-1.02); POTASSIUM 4.3 mmol/L (3.5-5.1); TOTAL PROTEIN 6.8 gm/dL (6.4-8.2)
[2019-10-06 13:44] LABS: ACT PARTIAL THROMBO TIME 40.9 SECONDS (20.0-32.1)
[2019-10-06 14:30] VITALS: BP 148/62
[2019-10-06] MEDS ORDERED: AUGMENTIN 875-875 MG PO ×2 (14:53)
--- NOTE | 2019-10-06 15:36 | NUR ---
ASSISTED PT TO RESTROOM. NOTED BLOOD DRIPPING FROM LEFT NOSTRIL CUTLER DNP NOTIFIED.
--- NOTE | 2019-10-06 15:52 | NUR ---
PT LT NARE PACKED. NO ACTIVE BLEEDING AT THIS TIME.
--- NOTE | 2019-10-06 16:49 | NUR ---
PT SITTING UP IN A WHEELCHAIR, PACKING INTACT, BLEEDING CONTROLLED. WILL MONITOR.
[2019-10-06 16:50] VITALS: BP 151/72
--- NOTE | 2019-10-06 16:55 | NUR ---
PT STILL DOING WELL, WATER PROVIDED, ENCOURAGED TO TAKE SIPS. BLEEDING STILL CONTROLLED.
--- NOTE | 2019-10-06 17:30 | NUR ---
ATTEMPTED TO HAVE PT AMBUALTE FOR DISCHARGE, PT STATES SHE IS UNBALE, SHE REPORTS SHE IS TOO WEAKN AND DIZZINESS. PT POSITIVE ORTHO REPORTED TO DR GREEN. PT REMAINS SITTING IN WHEELCHAIR AT HER REQUEST.
[2019-10-06 17:46] LABS: HEMATOCRIT 34.4 % (37.0-47.0)
[2019-10-06 18:39] VITALS: BP 154/72
[2019-10-06 18:55] VITALS: BP 178/62
--- NOTE | 2019-10-06 18:55 | NUR ---
A 84, admitted to 5E, under the services of JAYDE Olivares DO with a diagnosis of EPISTAXIX ,NEAR SYNCOPE. Chief complaint is EPISTAXIS AND DIZZINESS.. Patient arrived via wheel chair from ER. Monitor applied. Initial assessment completed. Vital signs taken and recorded. JAYDE OLIVARES DO notified of admission to the unit. Orders received. See assessment for past medical history, medications and allergies. Patient and/or family oriented to unit. [facility] visitation policy reviewed. Clothing/patient valuable form completed. JENELLE IBARRA
--- NOTE | 2019-10-06 19:40 | NUR ---
PATIENT BLEEDING HEAVILY FROM LEFT NARE. NASAL PACKING REMAINS IN PLACE. DR BARTH MADE AWARE AND TO THE FLOOR TO ASSESS PATIENT. PRESSURE PUT ON NOSE WITH ABD PADS AND ICE. BLEEDING STOPPED AFTER 25 MINUTES. PATIENT CLEANED UP AND ABLE TO TAKE SMALL SIPS OF ICE WATER. PATIENT C/O TASTING BLOOD AND BLOOD CLOTS IN HER MOUTH. DR BARTH AWARE. WILL MONITOR PATIENT AT THIS TIME. BED IN LOWEST POSITION, CALL LIGHT IN REACH
--- NOTE | 2019-10-06 19:48 | NUR ---
MED LIST GIVEN TO NEXT SHIFT FOR RECONCILIATION.
--- NOTE | 2019-10-06 20:12 | NUR ---
MED REC COMPLETED WITH LIST FROM HOME. COPY MADE AND PLACED IN CHART
[2019-10-06] MEDS ORDERED: WARFARIN SODIU2.5 MG PO (20:14)
[2019-10-06] MEDS ORDERED: WARFARIN SODIUM1 MG PO (20:14)
--- NOTE | 2019-10-06 21:04 | NUR ---
DR BARTH AWARE OF PATIENT'S BOWEL MOVEMENT BEING LOOSE AND BLACK. ORDER FOR OCCULT BLOOD
--- NOTE | 2019-10-06 22:21 | NUR ---
MEDICATED WITH PRN NORCO FOR C/O BACK PAIN RATED 8/10 ON A 0/10 PAIN SCALE
--- NOTE | 2019-10-06 23:21 | NUR ---
MEDICATION EFFECTIVE PER PATIENT
[2019-10-07] VITALS: BP 155/65
--- NOTE | 2019-10-07 00:30 | NUR ---
PATIENT REFUSING TO GET A BATH AT THIS TIME.
--- NOTE | 2019-10-07 01:19 | NUR ---
PATIENT DRY HEAVING. MEDICATED WITH PRN ZOFRAN. WILL MONITOR
--- NOTE | 2019-10-07 01:20 | NUR ---
BLOOD SUGAR CHECK 144
--- NOTE | 2019-10-07 02:19 | NUR ---
MEDICATION EFFECTIVE PER PATIENT
--- NOTE | 2019-10-07 03:29 | NUR ---
MEDICATED WITH PRN NORCO FOR C/O BACK PAIN. WILL MONITOR
[2019-10-07 06:36] LABS: CREATININE 1.18 mg/dL (0.55-1.02); POTASSIUM 4.6 mmol/L (3.5-5.1)
[2019-10-07 06:41] LABS: BASO % 0.7 % (0.0-1.0); EOS % 0.3 % (1.0-4.0); HEMATOCRIT 31.2 % (37.0-47.0); LYMPH # 1.1 10*3/uL (1.3-4.4); LYMPH % 17.8 % (27.0-41.0); MEAN CELL VOLUME 96.9 fl (81.0-99.0); MEAN CORPUSCULAR HGB 30.7 pg (27.0-31.0); MEAN CORPUSCULAR HGB CONC 31.7 g/dl (33.0-37.0); MEAN PLATELET VOLUME 10.4 fl (9.6-12.3); MONO # 0.7 10*3/uL (0.1-1.0); MONO % 11.8 % (3.0-9.0); NEUT # 4.1 10*3/uL (2.3-7.9); NEUT % 69.2 % (47.0-73.0); PLATELET COUNT AUTOMATED 215 10*3/uL (130-400); RED BLOOD COUNT 3.22 10*6/uL (4.10-5.10); RED CELL DISTRI WIDTH 14.8 % (0-14.5); WHITE BLOOD COUNT 5.9 10*3/uL (4.8-10.8)
[2019-10-07 06:57] LABS: ACT PARTIAL THROMBO TIME 35.8 SECONDS (20.0-32.1); INTERNATIONAL NORM RATIO 2.2 (2.0-3.5)
--- NOTE | 2019-10-07 07:32 | NUR ---
PT CALLED OUT, PT HAD ATTEMPTED TO GET UP TO GO TO THE BEDSIDE COMMODE AND LEFT NARES STARTED BLEEDING AGAIN. PT GIVEN ICE PACK TO BACK OF NECK AND LEFT NARES IS A CONTINUOUS STREAM OF BRIGHT RED BLOOD. DR. GARCIA NOTIFIED, DR. GARCIA WILL BE UP TO SEE PATIENT.
[2019-10-07 08:00] VITALS: BP 160/68
--- NOTE | 2019-10-07 08:15 | NUR ---
IV RIGHT AC WILL NOT FLUSH. RIGHT HAND #22 STARTED, FIRST ATTEMPT, GOOD BLOOD RETURN. PT TOLERATED WELL
--- NOTE | 2019-10-07 08:25 | NUR ---
pt states zofran starting to be effective. nose bleed has stopped at this time. pt requests to keep ice pack to neck. dr. ta aware nose bleed stopped. will notify if bleeding occurs
--- NOTE | 2019-10-07 09:00 | NUR ---
Certified Caregiver in to talk to patient. Patient states lives at home with alone. There are none steps in the home. Physician: darien hong Pharmacy: [facility] Home health services: caregiver 4 hours a day 7 days a week Patient's level of ADLs: MINIMAL ASSIST Patient has working utilities: all working DME: walker, rollator walker,cane, home oxygen, portable tanks from [facility] emergency department Follow-up physician's appointment after d/c: will be made by hospitalist nurse director up discharge Does patient want to access PORTAL?: no Discharge plan discussed with patient, she states she lives at [facility], she requires minimal assistance with adls and uses a rollator walker for ambulation, she states she has caregivers 7 days a week from 9am-1pm she stated her family helps her after that, she stated she would return home when discharged and denies any other home needs, case management will follow. LYUDMILA CAMPOS
--- NOTE | 2019-10-07 09:40 | NUR ---
dr. colon aware of consult
--- NOTE | 2019-10-07 11:20 | NUR ---
SILO OPERATOR DISCONTINUED PER ORDER PT HAS BLOOD ON GOWN FROM NOSE BLEED THIS MORNING, PT AT THIS TIME DOES NOT WANT TO CHANGE GOWN OR GET WASHED UP. WILL LET STAFF KNOW WHEN SHE WANTS TO GET WASHED OFF.
[2019-10-07 12:00] VITALS: BP 120/73
--- NOTE | 2019-10-07 15:04 | NUR ---
PT COMPLAIN OF PAIN "ALL OVER" NORCO GIVEN.
[2019-10-07 16:00] VITALS: BP 150/72
--- NOTE | 2019-10-07 16:00 | NUR ---
NORCO NOT EFFECTIVE, DR. GARCIA MADE AWARE PATIENT CONTINUE TO COMPLAIN OF BACK PAIN WELL A HEADACHE/PAIN AROUND NASAL AREA FROM PACKING. DR. GARCIA WILL REVIEW PATIENT CHART AND ENTER ORDER IF APPROPRIATE.
--- NOTE | 2019-10-07 16:37 | NUR ---
PT COMPLAIN OF NAUSEA, ZOFRAN GIVEN
--- NOTE | 2019-10-07 19:02 | NUR ---
LEFT NARES BLEEDING, BRIGHT RED BLOOD. ICE TO BACK OF NECK AND PRESSURE APPLIED TO NOSE
--- NOTE | 2019-10-07 19:02 | NUR ---
PT COMPLAIN OF BACK, NECK AND NASAL PAIN, NORCO GIVEN.
--- NOTE | 2019-10-07 19:30 | NUR ---
LEFT NARES BLEEDING HAS STOPPED. PT CONTINUES TO APPLY PRESSURE AND ICE REMAINS TO BACK OF NECK, ON COMING SHIFT AWARE OF MOST RECENT BLEEDING.
--- NOTE | 2019-10-07 19:55 | NUR ---
PATIENT RESTING IN BED. NO BLEEDING NOTED FROM LEFT NOSTRIL. PATIENT HAS BUCKET SITTING ON HER LAP FILLED WITH BLOODY 4X4'S FROM PREVIOUS NOSE BLEED. PATIENT DENIES ANY ABDOMINAL PAIN AT THIS TIME. SHE STATES "IT IS NOT HURTING LIKE IT HURT YESTERDAY". DENIES NECK AND BACK PAIN AT THIS TIME. DENIES ANY NEEDS. BED IN LOWEST POSITION, CALL LIGHT IN REACH
[2019-10-07 20:00] VITALS: BP 145/75
--- NOTE | 2019-10-07 22:49 | NUR ---
MEDICATED WITH PRN NORCO FOR C/O ALL OVER PAIN. WILL MONITOR
--- NOTE | 2019-10-07 23:49 | NUR ---
MEDICATION EFFECTIVE PER PATIENT
[2019-10-07 23:59] VITALS: BP 150/77
--- NOTE | 2019-10-08 01:21 | NUR ---
PATIENT RESTING IN BED WITH NO S/S OF DISTRESS. BED IN LOWEST POSITION, CALL LIGHT IN REACH
--- NOTE | 2019-10-08 01:27 | NUR ---
24 HR chart check completed.
[2019-10-08 06:42] LABS: BASO # 0.1 10*3/uL (0.0-0.1); BASO % 0.6 % (0.0-1.0); EOS % 0.4 % (1.0-4.0); LYMPH # 1.4 10*3/uL (1.3-4.4); LYMPH % 17.4 % (27.0-41.0); MEAN CELL VOLUME 97.3 fl (81.0-99.0); MEAN CORPUSCULAR HGB 30.4 pg (27.0-31.0); MEAN CORPUSCULAR HGB CONC 31.3 g/dl (33.0-37.0); MEAN PLATELET VOLUME 9.8 fl (9.6-12.3); MONO % 12.9 % (3.0-9.0); NEUT # 5.5 10*3/uL (2.3-7.9); NEUT % 68.3 % (47.0-73.0); PLATELET COUNT AUTOMATED 228 10*3/uL (130-400); RED BLOOD COUNT 3.29 10*6/uL (4.10-5.10); RED CELL DISTRI WIDTH 14.9 % (0-14.5); WHITE BLOOD COUNT 8.1 10*3/uL (4.8-10.8)
[2019-10-08 07:00] LABS: ACT PARTIAL THROMBO TIME 33.9 SECONDS (20.0-32.1); INTERNATIONAL NORM RATIO 1.8 (2.0-3.5)
[2019-10-08 07:13] LABS: CREATININE 1.09 mg/dL (0.55-1.02); POTASSIUM 4.2 mmol/L (3.5-5.1)
[2019-10-08 08:00] VITALS: BP 138/64; BP 142/62; BP 148/64; BP 150/67
--- NOTE | 2019-10-08 08:23 | NUR ---
NOTIFIED DR GARCIA OF PT C/O NAUSEA. PT MEDICATED WITH PREVIOUS SHIFT.NOTIFIED DR GARCIA MED RECONCILIATION COMPLETE.
--- NOTE | 2019-10-08 09:00 | NUR ---
case management visits with patient, Dr Poon also visiting with patient, patient will be transferred to another facility where there is ENT, patient is medicare, no precert required for the transfer, case management will follow
[2019-10-08 12:00] VITALS: BP 153/78
[2019-10-08 16:00] VITALS: BP 136/85
--- NOTE | 2019-10-08 16:32 | NUR ---
Discharge instructions reviewed with patient/family. Patient receptive and verbalizes understanding. Follow-up care arranged. Written instructions given to patient/family. JENELLE IBARRA
--- NOTE | 2019-10-08 16:45 | NUR ---
ATTEMPTED TO CALL REPORT TO [facility] TO DIVYA PACE.RN UNABBLE TO TAKE REPORT RIGHT NOW. WILL RETURN MY CALL.
--- NOTE | 2019-10-08 17:26 | NUR ---
REPORT CALLED TO [facility] TO DIVYA PACE.
== END 2019-10-08 16:32 | disposition short-term general hospital (02) ==
LOC: ED 13:00 → EDHOLD 17:37 → 5E 18:26
PROVIDERS: Emergency Medicine; Hospitalist; Internal Medicine; Nurse Practitioner Family; ADMIT Internal Medicine; ATTEND Internal Medicine
DX: R04.0 Epistaxis (principal); R55 Syncope and collapse; J96.10 Chronic respiratory failure, unspecified whether with hypoxia or hypercapnia; E87.8 Other disorders of electrolyte and fluid balance, not elsewhere classified; E11.65 Type 2 diabetes mellitus with hyperglycemia; I13.0 Hypertensive heart and chronic kidney disease with heart failure and stage 1 through stage 4 chronic kidney disease, or unspecified chronic kidney disease; N18.9 Chronic kidney disease, unspecified; I50.31 Acute diastolic (congestive) heart failure; E11.22 Type 2 diabetes mellitus with diabetic chronic kidney disease; D64.9 Anemia, unspecified; J44.9 Chronic obstructive pulmonary disease, unspecified; E78.5 Hyperlipidemia, unspecified; E03.9 Hypothyroidism, unspecified; I25.10 Atherosclerotic heart disease of native coronary artery without angina pectoris; I48.91 Unspecified atrial fibrillation; E55.9 Vitamin D deficiency, unspecified; G47.33 Obstructive sleep apnea (adult) (pediatric)

== ENCOUNTER 2019-10-13 04:22 | Inpatient (IN) | payer MEDICARE, OTHER, MEDICAID ==
[~2019-10-13] VITALS: Ht 172.7 cm; Wt 122.6 kg
[~2019-10-13 04:22] MED LIST changes: +AUGMENTIN 875-875 MG PO; +WARFARIN SODIU2.5 MG PO; +WARFARIN SODIUM1 MG PO
[2019-10-13 04:37] VITALS: BP 114/46
--- NOTE | 2019-10-13 06:50 | NUR ---
PT C/O LEFT HIP PAIN,MEDICATED WITH VICODIN PER MD ORDER.PT MADE AWARE OF NO FRACTURE FOUND UPON XRAY--REYMUNDO VEGA RN
--- NOTE | 2019-10-13 07:47 | NUR ---
ENGINEERING FACULTY RECEIVED PATIENTS ADMISSIONS. PATIENT WAS IN ON 10/05-10/07. PATIENT DID NOT HAVE HER 3RD MIDNIGHT STAY. ENGINEERING FACULTY NOTIFIED JAVAD CLARK IN ED.
[2019-10-13 08:36] LABS: BASO % 0.4 % (0.0-1.0); EOS # 0.1 10*3/uL (0.0-0.4); EOS % 2.5 % (1.0-4.0); HEMATOCRIT 27.6 % (37.0-47.0); LYMPH # 0.7 10*3/uL (1.3-4.4); LYMPH % 14.1 % (27.0-41.0); MEAN CELL VOLUME 97.2 fl (81.0-99.0); MEAN CORPUSCULAR HGB 29.9 pg (27.0-31.0); MEAN CORPUSCULAR HGB CONC 30.8 g/dl (33.0-37.0); MEAN PLATELET VOLUME 9.3 fl (9.6-12.3); MONO # 0.7 10*3/uL (0.1-1.0); MONO % 13.7 % (3.0-9.0); NEUT # 3.6 10*3/uL (2.3-7.9); NEUT % 69.1 % (47.0-73.0); PLATELET COUNT AUTOMATED 212 10*3/uL (130-400); RED BLOOD COUNT 2.84 10*6/uL (4.10-5.10); RED CELL DISTRI WIDTH 14.8 % (0-14.5); WHITE BLOOD COUNT 5.2 10*3/uL (4.8-10.8)
[2019-10-13] MEDS ORDERED: Coumadin3 MG PO (08:45)
[2019-10-13 08:50] LABS: CREATININE 1.61 mg/dL (0.55-1.02); POTASSIUM 4.6 mmol/L (3.5-5.1)
[2019-10-13 08:56] LABS: ACT PARTIAL THROMBO TIME 26.8 SECONDS (20.0-32.1); INTERNATIONAL NORM RATIO 1.1 (2.0-3.5)
[2019-10-13 09:00] VITALS: BP 128/50
--- NOTE | 2019-10-13 09:00 | NUR ---
The assessment has been completed. JAMAAL LEONARD Time: 0900 A 84 year old FEMALE admitted to under services of JANE COTTO DO. Pt. arrived via ambulance from ER. Chief complaint: FROM HOME VIA AMBULANCE AFTER FALL AT HOME. RECENTLY D/C FROM [facility] FOR NOSE BLEED ON SUNDAY. JAMAAL LEONARD
--- NOTE | 2019-10-13 10:16 | NUR ---
Occupational Therapy evaluation completed on five with full evaluation to follow. Recommend occupational therapy per plan of care and SNF upon discharge. Thank you for this referral. Stephanie Marcum OTR/L
--- NOTE | 2019-10-13 10:17 | NUR ---
PHYSICAL THERAPY Physical Therapy evaluation completed on 5E with full evaluation to follow. Moderate complexity skilled PT evaluation per chart review and evaluation, [id number]. Recommend physical therapy per plan of care and SNF upon discharge. Thank you for this referral. Yasmin Benson,PT,DPT
--- NOTE | 2019-10-13 10:20 | NUR ---
NOTIFIED DR RAMÍREZ PTS MED REC UP TO DATE.
--- NOTE | 2019-10-13 11:09 | NUR ---
PT RESTING IN BED. VOICES NO CONCERNS AT THIS TIME. RESPS EASY AND NON LABORED. NO S/S OF DISTRESS NOTED. A/O X3. DENIES PAIN. FAMILY AT BEDSIDE. WILL CONTINUE TO MONITOR. CALL LIGHT WITHIN REACH. BED ALARM ON.
[2019-10-13 12:00] VITALS: BP 130/56
--- NOTE | 2019-10-13 15:26 | NUR ---
PT COMPLAIN OF LEG AND BACK, NORCO GIVEN. WILL MONITOR FOR EFFECTIVENESS
[2019-10-13 16:00] VITALS: BP 159/56
--- NOTE | 2019-10-13 16:20 | NUR ---
NORCO EFFECTIVE FOR PAIN
[2019-10-13 20:13] VITALS: BP 151/53
--- NOTE | 2019-10-13 20:15 | NUR ---
DAUGHTER (MICHOACANO) CALLED IN WITH [facility]. UPDATED ON PLAN OF CARE.
--- NOTE | 2019-10-13 21:53 | NUR ---
PT MEDICATED WITH PO NORCO FOR C/O L KNEE PAIN RATED 10/10. WILL MONITOR. CALL LIGHT IN REACH.
[2019-10-14 00:03] VITALS: BP 140/54
--- NOTE | 2019-10-14 00:35 | NUR ---
PT ASLEEP IN BED. DENIES ANY NEEDS. WILL MONITOR. CALL LIGHT IN REACH.
--- NOTE | 2019-10-14 00:35 | NUR ---
PT ASLEEP IN BED. NO S/S OF DISTRESS NOTED. WILL MONITOR. CALL LIGHT IN REACH. BED ALARM INTACT.
--- NOTE | 2019-10-14 04:18 | NUR ---
PO NORCO GIVEN PER PRN ORDER FOR C/O PAIN IN L KNEE/HIP RATED 8/10. WILL MONITOR. CALL LIGHT IN REACH.
[2019-10-14 05:54] LABS: BASO % 0.6 % (0.0-1.0); EOS # 0.1 10*3/uL (0.0-0.4); EOS % 1.9 % (1.0-4.0); HEMATOCRIT 27.8 % (37.0-47.0); LYMPH # 0.8 10*3/uL (1.3-4.4); LYMPH % 17.8 % (27.0-41.0); MEAN CELL VOLUME 96.9 fl (81.0-99.0); MEAN CORPUSCULAR HGB 29.3 pg (27.0-31.0); MEAN CORPUSCULAR HGB CONC 30.2 g/dl (33.0-37.0); MEAN PLATELET VOLUME 9.7 fl (9.6-12.3); MONO # 0.8 10*3/uL (0.1-1.0); MONO % 15.9 % (3.0-9.0); NEUT % 63.6 % (47.0-73.0); PLATELET COUNT AUTOMATED 235 10*3/uL (130-400); RED BLOOD COUNT 2.87 10*6/uL (4.10-5.10); RED CELL DISTRI WIDTH 14.6 % (0-14.5); WHITE BLOOD COUNT 4.7 10*3/uL (4.8-10.8)
[2019-10-14 05:55] LABS: CREATININE 1.13 mg/dL (0.55-1.02)
[2019-10-14 06:01] LABS: THYROID STIM HORMONE (HS) 0.954 uIU/ml (0.358-4.75)
[2019-10-14 06:48] LABS: ACT PARTIAL THROMBO TIME 28.5 SECONDS (20.0-32.1); INTERNATIONAL NORM RATIO 1.1 (2.0-3.5)
[2019-10-14 07:23] LABS: VITAMIN D, 25-HYDROXY 38.8 ng/mL (30-100)
--- NOTE | 2019-10-14 07:50 | NUR ---
PT RESTING IN BED NO DISTRESS NOTED. SEE SHIFT ASSESSMENT. WILL MONITOR
[2019-10-14 08:00] VITALS: BP 124/54
--- NOTE | 2019-10-14 09:00 | NUR ---
Wheel And Axle Inspector in to talk to patient. Patient states lives at home with alone with her family checking in on her. There are no steps in the home. She states she lives in a handicap apartment. Physician: Sachin Villa Pharmacy: [facility] Home health services: caregiver 4 hours a day 7 days a week Patient's level of ADLs: MINIMAL ASSIST Patient has working utilities: yes DME: cane, walker, rollator, c-pap, O2 unknown liters, portable O2 tanks, O2 supplier [facility] Follow-up physician's appointment after d/c: will be made by the hospitalist nurse director upon discharge Does patient want to access PORTAL?: no Discharge plan discussed with patient. She lives at home alone with her family checking in on her. She lives at [facility]. She needs minimal assistance with her ADLs and ambulates inside with a walker and outside with a rollator. Discussed short term rehab and she is agreeable. When provided with a list of facilities she chose [facility]. When asked for a 2nd choice she would not give. She wants to see if [facility] has beds first. She states she has caregivers 7 days a week from 9am-1pm. She will need COVID testing and a 3 night stay. mixed livestock farm worker notified. SADIA LOYA
--- NOTE | 2019-10-14 09:30 | NUR ---
REBA RECEIVED RN NOTES TO SPEAK WITH THE PATIENTS DAUGHTER MICHOACANO ABOUT DISCHARGE PLANNING. SHE STATED THAT THE PATIENT WOULD LIKE [facility]. DIRECTOR UNDERWRITER SALES EXPLAINED [facility] HAD NO BEDS. DIRECTOR UNDERWRITER SALES EXPLAINED [facility]. SHE STATED THAT EITHER ONE WOULD BE OKAY SINCE THEY ARE A SHERIFF FACILITY AND THAT THE PATIENT WOULD BE AGREEABLE TO ONE. REBA SPOKE WITH CONTROL DIRECTOR SADIA.
--- NOTE | 2019-10-14 09:42 | NUR ---
OT NOTE Pt laying supine in bed with head elevated, agreeable to 30 minute OT session. Identified by name and date of with complaints of back pain which pt stated "it was higher than a 10" on the pain scale. Pt presented to OT on 3L of continuous O2 via NC. Transfer supine to EOB Elvis for log roll. MaxA to tomás socks due to needing to use restroom. Sit-stand ModA x2 with w/w for UB support. Stand-pivot to BSC Elvis with w/w. MaxA for hygiene. Pt was educated on dressing stick to put depends on, however declined requiring maxA to tomás depends. Sit-stand off BSC modA with w/w due to low rise toilet seat. Functional mobility from BSC to recliner CGA with w/w. Sit-stand maxX2 from recliner. Pts standing balance was challenged by weight shifting in all planes with CGA and w/w. Balance F+/F-. Activity tolerance was challenged, functional mobility from recliner to door way CGA with w/w. Pt was able to tolerate approx 4 minutes of activity before fatigue. Pt left in recliner with alarm educational diagnostician light in reach. Continue d/c recommended SNF. EDGARDO Leung/ARIAN Lee/Thong
--- NOTE | 2019-10-14 09:45 | NUR ---
CM in to see patient. She is sitting up in her bedside chair. Discussed [facility] being full and discussed [facility] which [facility] the [facility] on the [place] side. She is agreeable. bee worker notified.
--- NOTE | 2019-10-14 09:48 | NUR ---
PHYSICAL THERAPY TREATMENT TIME: IN 09:15 AM - OUT 09:45 AM 30 MINUTES PRESENTATION: Patient in supine Head of bed elevated Bed alarm activated 3 LITERS OF spO2 with nasal canula No IV No catheter COMPLAINTS: 10/10 PAIN in the low back with movement Pain in the L hip and L knee unknown pain level in the L hip and L knee Feeling off-balance while standing TRANSFERS: Log Rolling with MOD A X 2 S/L to sitting on EOB with MIN A X 2 Sitting on EOB with SBA STS from EOB with MOD A X 2 STS from low chair with MAX A X 2 Verbal cues for pushing off armrests with hands SPT to bedside chair with Wh Walker CGA- MIN A X 1 TREATMENT: Gait with Wh Walker and CGA for 12' x 1 Standing STATIC balance for 2 minutes with moderate LOB. COMPLAINTS/ RESPONSE TO TREATMENT: Feeing off-balance with standing Feeling dizzy with standing Increased pain in low back and L knee with stading and gait. Increased pain in the L knee when sitting in low bedside chair. No SOB with 3 liters of spO2 CONCLUSION: Patient left in sitting position in bedside chair call light within reach 3 liters of spO2 CONNECTED TO WALL Tray table in front of patient SARABJIT CLEMENTE AEROLOGIST
--- NOTE | 2019-10-14 11:16 | NUR ---
BASIC SCIENCES PROFESSOR FAXED REFERRAL TO [facility] TO BE REVIEWED.
[2019-10-14 12:00] VITALS: BP 132/56
[2019-10-14 16:00] VITALS: BP 129/54
--- NOTE | 2019-10-14 19:47 | NUR ---
PT AWAKE IN BED. DENIES ANY NEEDS. WILL MONITOR. CALL LIGHT IN REACH.
[2019-10-14 20:00] VITALS: BP 145/47
--- NOTE | 2019-10-14 21:55 | NUR ---
PO NORCO GIVEN PER PRN ORDER FOR C/O L KNEE/HIP PAIN RATED 8/10. WILL MONITOR EFFECTIVENESS. CALL LIGHT IN REACH.
--- NOTE | 2019-10-14 22:49 | NUR ---
EARLIER MED EFFECTIVE PER PT. WILL MONITOR.
[2019-10-15] VITALS: BP 120/40
--- NOTE | 2019-10-15 05:11 | NUR ---
PO NORCO GIVEN FOR BACK PAIN/L LEG PAIN RATED 9/10. WILL MONITOR.
--- NOTE | 2019-10-15 06:00 | NUR ---
EARLIER MED EFFECTIVE PER PT.
[2019-10-15 08:00] VITALS: BP 148/54
--- NOTE | 2019-10-15 08:00 | NUR ---
PT RESTING IN BED. NO DISTRESS NOTED. WILL MONITOR
--- NOTE | 2019-10-15 08:20 | NUR ---
MARY/JOSE/JORGE STATED A BED IS NOW AVAILABLE AT [facility]. PLATE HANGER SPOKE WITH THE PATIENT VIA PHONE. SHE STATED SHE WANTS RS. PLATE HANGER NOTIFIED VINICIO.
--- NOTE | 2019-10-15 09:15 | NUR ---
OT NOTE Pt laying supine in bed agreeable to 15 minute Ot session. Pt identified by name and date of with complaints with 9/10 lower back pain and 9/10 right knee pain. Pt presented to OT with 3L of continuous O2 via NC. Supine to EOB Dominic when log rolling to bring legs to edge. Sit-stand Dominic with w/w for UB support. Stand-pivot to [facility] CGA with w/w. Transferring on [facility] CGA with w/w. Hygeine maxA. Transferring off C ModA due to low rise commode. Dominic when pulling up underpants due to being unsteady.Balance F+/F-.functional mobility from BS to doorway CGA with w/w. Pt was able to tolerate approx 5 minutes of activity before getting fatigued. Extra time given throughout session due to pt's slow rate of performance. Pt left in recliner with alarm active and call light in reach. Continue d/c recommended SNF. EDGARDO Leung/ARIAN Lee/Thong
--- NOTE | 2019-10-15 09:49 | NUR ---
PHYSICAL THERAPY TREATMENT TIME: OUT 9:15 AM 17 minutes PRESENTATION: Patient was supine in bed Head of bed elevated 3 LiterS of spO2 VIA NASAL CANULA No IVs COMPLAINTS: LBP R KNEE throbbing pain of TRANSFERS: Supine to sitting on EOB: MIN A X 1 LOG ROLL: MIN A X 1 Sitting on EOB: SBA STS from EOB: MIN A X 1 Verbal cues for pushing off bed with hands TREATMENT: Gait with Wh Walker and CGA-SBA Gait distance - 12' x 1 with rolling chair follow RESPONSE TO TREATMENT: Patient had to sit at 12' x 1 Chair rolled up behind her Patient has very short step-length Verbal cues for increasing step-length Increased pain in the low back with gait and transfers CONCLUSION: Patient left in bedside chair with call light within reach Chair alarm tested and attached to patient Tray table beside patient's chair LEs in low position SARABJIT CLEMENTE CRM DYNAMICS DEVELOPER
[2019-10-15 12:00] VITALS: BP 136/65; BP 153/56
[2019-10-15 16:00] VITALS: BP 134/48
--- NOTE | 2019-10-15 17:11 | NUR ---
PT RESTING IN BED/ NO DISTRESS NOTED. WILL MONITOR
--- NOTE | 2019-10-15 19:00 | NUR ---
REPORT RECEIVED, PT LYING IN BED, NO S/S OF DISTRESS NOTED. CALL LIGHT IN REACH
[2019-10-15 20:00] VITALS: BP 140/49
--- NOTE | 2019-10-15 21:00 | NUR ---
IN TO SEE PT AND PASS MEDICTIONS. PT VOICES NO COMPLAINTS.
[2019-10-16] VITALS: BP 153/65
--- NOTE | 2019-10-16 01:27 | NUR ---
NORCO GIVEN PER ORDER FOR COMPLAINTS BACK PAIN 09/21. WILL MONITOR EFFECTIVENESS
--- NOTE | 2019-10-16 02:20 | NUR ---
NORCO APPEARS EFFECTIVE, PT ASLEEP
[2019-10-16 07:07] LABS: INTERNATIONAL NORM RATIO 1.4 (2.0-3.5)
[2019-10-16 08:00] VITALS: BP 136/50
--- NOTE | 2019-10-16 08:15 | NUR ---
OT NOTE Pt was laying supine in bed with head elevated, agreeable to 15 minute OT session. Pt identified by name and date of with complaints of 5/10 low back pain. Transfer supine to EOB SBA when log rolling. Sit-stand Elvis with w/w for UB support. Stand pivot to BSC CGA with w/w for saftey. Transferring on BSC CGA, transferring off BSC modA due to low rise commode. Hygiene maxA. Elvis when pulling underwear up due to unsteadiness. Balance was F-. Functional mobility from BSC to recliner CGA with w/w. Pt completed UB exercises with towel in all planes at moderate resistance X10. Pt left in recliner with alarm active and call light in reach. Continue d/c recommended SNF. EDGARDO Leung/ARIAN Lee/Thong
--- NOTE | 2019-10-16 08:23 | NUR ---
SKIRT CLIPPER COMPLETED HENS.
--- NOTE | 2019-10-16 09:00 | NUR ---
CM in to see patient. No new needs or request at this time. She has been accepted at [facility] and can be discharged when medically stable. COVID negative and she has met her 3 night stay.
--- NOTE | 2019-10-16 11:25 | NUR ---
PHYSICAL THERAPY Patient seen this am 1:1 for therapy visit and was sitting up in bedside chair upon therapist arrival. Patient identified by name / and presented with continuous O2-3L via NC. Patient reports chronic L LE pain / discomfort and stated she had just walked back from the bathroom for patient care. Patient was pleasant and did not feel up to walking again so soon, however agreed to / performed seated B LE therex, all planes, AROM, 2 x 10 reps each to increase LE strength. Patient tolerated all treatment without c/o as SpO2 / HR remained WFL's throughout entire session. Patient remained in bedside chair with call light, tray table and telephone. Will continue per POC as tolerated, total treatment time 14 minutes. Feliberto Garcia, MANAGER FIELD
--- NOTE | 2019-10-16 11:30 | NUR ---
VELVET STEAMER RECEIVED NOTICE OF PATIENT DISCHARGE. VELVET STEAMER ARRANGED FOR [facility] TO TRANPORT THE PATIENT TO TODAY AT 12:00PM. VELVET STEAMER NOTIFIED V[facility]ICIO ALMONTE, AND LEFT MESSAGE ON POA CELL PHONE. VELVET STEAMER WILL FAX DISCHARGE ORDERS TO VINICIO.
--- NOTE | 2019-10-16 14:52 | NUR ---
MSDIS Discharge instructions reviewed with patient/family. Patient receptive and verbalizes understanding. Follow-up care arranged. Written instructions given to patient/family. SHANTEL WASHINGTON
--- NOTE | 2019-10-17 07:36 | NUR ---
OCCUPATIONAL THERAPY CO-SIGN I approve of the Occupational Therapy notes written above. REG WHITE, OTR/L
--- NOTE | 2019-10-17 08:12 | NUR ---
PHYSICAL THERAPY CO-SIGN I approve of the Physical Therapy notes written above. Samantha Rider PT
--- NOTE | 2019-10-17 08:13 | NUR ---
PHYSICAL THERAPY CO-SIGN I approve of the Physical Therapy notes written above. Samantha Rider PT
== END 2019-10-16 14:50 | disposition other institution (70) | DRG 947 ==
LOC: ED 04:22 → EDHOLD 08:01 → 5E 08:01 → 4E 10-15 00:43 → 5E 10-15 00:56
PROVIDERS: Emergency Medicine; ADMIT Internal Medicine; ATTEND Internal Medicine
DX: R53.1 Weakness (principal); N17.0 Acute kidney failure with tubular necrosis; E44.0 Moderate protein-calorie malnutrition; D62 Acute posthemorrhagic anemia; J96.11 Chronic respiratory failure with hypoxia; I50.32 Chronic diastolic (congestive) heart failure; Z68.41 Body mass index [BMI] 40.0-44.9, adult; I13.0 Hypertensive heart and chronic kidney disease with heart failure and stage 1 through stage 4 chronic kidney disease, or unspecified chronic kidney disease; E11.42 Type 2 diabetes mellitus with diabetic polyneuropathy; E11.65 Type 2 diabetes mellitus with hyperglycemia; J44.9 Chronic obstructive pulmonary disease, unspecified; I25.10 Atherosclerotic heart disease of native coronary artery without angina pectoris; E66.01 Morbid (severe) obesity due to excess calories; G47.33 Obstructive sleep apnea (adult) (pediatric); G43.909 Migraine, unspecified, not intractable, without status migrainosus; M19.90 Unspecified osteoarthritis, unspecified site; D72.819 Decreased white blood cell count, unspecified; E03.9 Hypothyroidism, unspecified; I48.91 Unspecified atrial fibrillation; E11.22 Type 2 diabetes mellitus with diabetic chronic kidney disease; Z96.649 Presence of unspecified artificial hip joint; E87.8 Other disorders of electrolyte and fluid balance, not elsewhere classified; E78.5 Hyperlipidemia, unspecified; E55.9 Vitamin D deficiency, unspecified; N18.3 Chronic kidney disease, stage 3 (moderate); Z20.828 Contact with and (suspected) exposure to other viral communicable diseases; Z85.038 Personal history of other malignant neoplasm of large intestine; Z79.01 Long term (current) use of anticoagulants; Z88.6 Allergy status to analgesic agent; Z88.1 Allergy status to other antibiotic agents; Z90.49 Acquired absence of other specified parts of digestive tract; Z90.710 Acquired absence of both cervix and uterus; Z87.891 Personal history of nicotine dependence; Z82.49 Family history of ischemic heart disease and other diseases of the circulatory system; Z83.3 Family history of diabetes mellitus; Z98.49 Cataract extraction status, unspecified eye; Z72.3 Lack of physical exercise

== ENCOUNTER → 2020-07-22 | Outpatient (CLI) | payer MEDICARE, OTHER, MEDICAID ==
[2020-07-22 13:19] LABS: BILIRUBIN Negative (Negative); BLOOD 1+ (Negative); CLARITY Clear (Clear); COLOR Yellow (Yellow); GLUCOSE Negative (Negative); KETONE Negative (Negative); LEUKO ESTERASE 1+ (Negative); NITRITE Negative (Negative); UROBILINOGEN 0.2 E.U./dl (0.0-1.0)
[2020-07-22 13:28] LABS: URINE CREATININE RANDOM 37.2 mg/dL
[2020-07-22 13:38] LABS: ALBUMIN 3.2 gm/dl (3.1-4.5); CREATININE 1.26 mg/dL (0.55-1.02); POTASSIUM 4.3 mmol/L (3.5-5.1)
[2020-07-22 13:48] LABS: BACTERIA 2+
== END | disposition home or self-care (01) ==
LOC: LAB 12:26
PROVIDERS: ATTEND Internal Medicine Nephrology
DX: N17.9 Acute kidney failure, unspecified (principal); Z79.899 Other long term (current) drug therapy

== ENCOUNTER → 2021-04-05 | Outpatient (CLI) | payer MEDICARE, OTHER, MEDICAID ==
[2021-04-05 13:12] LABS: BASO % 0.8 % (0.0-1.0); EOS # 0.1 10*3/uL (0.0-0.4); EOS % 2.3 % (1.0-4.0); LYMPH # 0.9 10*3/uL (1.3-4.4); LYMPH % 16.7 % (27.0-41.0); MEAN CELL VOLUME 99.7 fl (81.0-99.0); MEAN CORPUSCULAR HGB 30.9 pg (27.0-31.0); MEAN PLATELET VOLUME 9.8 fl (9.6-12.3); MONO # 0.8 10*3/uL (0.1-1.0); NEUT # 3.5 10*3/uL (2.3-7.9); PLATELET COUNT AUTOMATED 194 10*3/uL (130-400); RED BLOOD COUNT 2.91 10*6/uL (4.10-5.10); RED CELL DISTRI WIDTH 14.9 % (0-14.5); WHITE BLOOD COUNT 5.3 10*3/uL (4.8-10.8)
[2021-04-05 13:17] LABS: BILIRUBIN Negative (Negative); BLOOD Negative (Negative); CLARITY Clear (Clear); COLOR Yellow (Yellow); GLUCOSE Negative (Negative); KETONE Negative (Negative); LEUKO ESTERASE 3+ (Negative); NITRITE Negative (Negative); UROBILINOGEN 0.2 E.U./dl (0.0-1.0)
[2021-04-05 13:28] LABS: BACTERIA 1+; CREATININE 1.7 mg/dL (0.55-1.02); POTASSIUM 4.5 mmol/L (3.5-5.1); WBC 16-20 wbc/hpf (0-5)
[2021-04-05 13:29] LABS: URINE CREATININE RANDOM 41.2 mg/dL
[2021-04-05 14:00] LABS: FERRITIN 13.7 ng/mL (10.0-291.0); VITAMIN D, 25-HYDROXY 45.8 ng/mL (30-100)
== END | disposition home or self-care (01) ==
LOC: LAB 12:43
PROVIDERS: ATTEND Internal Medicine Nephrology
DX: D50.9 Iron deficiency anemia, unspecified (principal); E55.9 Vitamin D deficiency, unspecified; N17.9 Acute kidney failure, unspecified; Z79.899 Other long term (current) drug therapy

== ENCOUNTER 2021-05-06 18:40 | Inpatient (IN) | payer MEDICARE, OTHER, MEDICAID ==
[~2021-05-06] VITALS: Ht 170.2 cm; Wt 120.7 kg
[2021-05-06 18:46] VITALS: BP 121/48
[2021-05-06 19:55] LABS: BASO % 0.7 % (0.0-1.0); EOS # 0.1 10*3/uL (0.0-0.4); EOS % 2.9 % (1.0-4.0); HEMATOCRIT 24.8 % (37.0-47.0); LYMPH # 0.8 10*3/uL (1.3-4.4); LYMPH % 18.3 % (27.0-41.0); MEAN CELL VOLUME 105.1 fl (81.0-99.0); MEAN CORPUSCULAR HGB 30.9 pg (27.0-31.0); MEAN CORPUSCULAR HGB CONC 29.4 g/dl (33.0-37.0); MONO # 0.7 10*3/uL (0.1-1.0); MONO % 14.8 % (3.0-9.0); NEUT # 2.9 10*3/uL (2.3-7.9); NEUT % 62.9 % (47.0-73.0); PLATELET COUNT AUTOMATED 183 10*3/uL (130-400); RED BLOOD COUNT 2.36 10*6/uL (4.10-5.10); WHITE BLOOD COUNT 4.5 10*3/uL (4.8-10.8)
[2021-05-06 20:00] VITALS: BP 104/44
[2021-05-06 20:11] LABS: CREATININE 1.68 mg/dL (0.55-1.02); POTASSIUM 4.4 mmol/L (3.5-5.1); TOTAL PROTEIN 6.1 gm/dL (6.4-8.2)
[2021-05-06 20:17] LABS: BILIRUBIN Negative (Negative); BLOOD Negative (Negative); CLARITY Clear (Clear); COLOR Yellow (Yellow); GLUCOSE Negative (Negative); KETONE Negative (Negative); LEUKO ESTERASE Trace (Negative); NITRITE Negative (Negative); SPECIFIC GRAVITY <= 1.005 (1.001-1.030); UROBILINOGEN 0.2 E.U./dl (0.0-1.0)
[2021-05-06 20:26] LABS: BACTERIA 1+
[2021-05-06 21:06] VITALS: BP 102/44
[2021-05-07 00:10] VITALS: BP 135/52
[2021-05-07 05:47] LABS: BASO % 0.3 % (0.0-1.0); EOS # 0.1 10*3/uL (0.0-0.4); EOS % 1.5 % (1.0-4.0); HEMATOCRIT 23.9 % (37.0-47.0); LYMPH % 17.4 % (27.0-41.0); MEAN CELL VOLUME 104.4 fl (81.0-99.0); MEAN CORPUSCULAR HGB 31.4 pg (27.0-31.0); MEAN CORPUSCULAR HGB CONC 30.1 g/dl (33.0-37.0); MEAN PLATELET VOLUME 8.8 fl (9.6-12.3); MONO # 0.7 10*3/uL (0.1-1.0); MONO % 12.5 % (3.0-9.0); NEUT % 68.1 % (47.0-73.0); PLATELET COUNT AUTOMATED 170 10*3/uL (130-400); RED BLOOD COUNT 2.29 10*6/uL (4.10-5.10); RED CELL DISTRI WIDTH 14.9 % (0-14.5); WHITE BLOOD COUNT 5.9 10*3/uL (4.8-10.8)
[2021-05-07 06:09] LABS: CREATININE 1.35 mg/dL (0.55-1.02); POTASSIUM 4.4 mmol/L (3.5-5.1); TOTAL PROTEIN 5.9 gm/dL (6.4-8.2)
[2021-05-07 08:00] VITALS: BP 127/41
[2021-05-07 08:25] LABS: INTERNATIONAL NORM RATIO 2.8 (2.0-3.5)
[2021-05-07 08:30] LABS: VITAMIN D, 25-HYDROXY 62.6 ng/mL (30-100)
[2021-05-07 12:00] VITALS: BP 117/44
[2021-05-07] MEDS ORDERED: CETIRIZINE HYDR10 MG PO (12:26)
[2021-05-07] MEDS ORDERED: LASIX80 MG PO (12:27)
[2021-05-07] MEDS ORDERED: XARE20MG PO (12:30)
[2021-05-07] MEDS ORDERED: TIMOLOL MALEATE10 M1 OPH (12:31)
[2021-05-07 16:00] VITALS: BP 105/30
[2021-05-07 20:00] VITALS: BP 127/47
[2021-05-08] VITALS: BP 125/45
[2021-05-08 07:15] LABS: BASO % 0.5 % (0.0-1.0); EOS # 0.1 10*3/uL (0.0-0.4); EOS % 2.7 % (1.0-4.0); HEMATOCRIT 23.4 % (37.0-47.0); LYMPH # 0.9 10*3/uL (1.3-4.4); MEAN CELL VOLUME 105.9 fl (81.0-99.0); MEAN CORPUSCULAR HGB 31.7 pg (27.0-31.0); MEAN CORPUSCULAR HGB CONC 29.9 g/dl (33.0-37.0); MEAN PLATELET VOLUME 9.7 fl (9.6-12.3); MONO # 0.7 10*3/uL (0.1-1.0); MONO % 15.7 % (3.0-9.0); NEUT # 2.5 10*3/uL (2.3-7.9); NEUT % 59.9 % (47.0-73.0); PLATELET COUNT AUTOMATED 165 10*3/uL (130-400); RED BLOOD COUNT 2.21 10*6/uL (4.10-5.10); RED CELL DISTRI WIDTH 14.6 % (0-14.5); WHITE BLOOD COUNT 4.1 10*3/uL (4.8-10.8)
[2021-05-08 07:25] LABS: INTERNATIONAL NORM RATIO 2.3 (2.0-3.5)
[2021-05-08 07:30] LABS: CREATININE 1.11 mg/dL (0.55-1.02)
[2021-05-08 08:00] VITALS: BP 113/31
[2021-05-08 12:00] VITALS: BP 119/40
[2021-05-08 16:00] VITALS: BP 108/57
[2021-05-08 20:00] VITALS: BP 91/57
[2021-05-09] VITALS: BP 118/45
[2021-05-09 06:07] LABS: CREATININE 1.22 mg/dL (0.55-1.02); POTASSIUM 4.2 mmol/L (3.5-5.1)
[2021-05-09 06:09] LABS: BASO % 0.5 % (0.0-1.0); EOS # 0.1 10*3/uL (0.0-0.4); EOS % 2.7 % (1.0-4.0); HEMATOCRIT 23.8 % (37.0-47.0); LYMPH % 23.5 % (27.0-41.0); MEAN CELL VOLUME 105.3 fl (81.0-99.0); MEAN CORPUSCULAR HGB 31.4 pg (27.0-31.0); MEAN CORPUSCULAR HGB CONC 29.8 g/dl (33.0-37.0); MEAN PLATELET VOLUME 9.6 fl (9.6-12.3); MONO # 0.7 10*3/uL (0.1-1.0); MONO % 16.1 % (3.0-9.0); NEUT # 2.3 10*3/uL (2.3-7.9); PLATELET COUNT AUTOMATED 172 10*3/uL (130-400); RED BLOOD COUNT 2.26 10*6/uL (4.10-5.10); RED CELL DISTRI WIDTH 14.4 % (0-14.5)
[2021-05-09 06:15] LABS: INTERNATIONAL NORM RATIO 1.9 (2.0-3.5)
[2021-05-09 08:00] VITALS: BP 114/32
[2021-05-09 12:00] VITALS: BP 128/49
[2021-05-09 16:00] VITALS: BP 114/38
[2021-05-09 20:00] VITALS: BP 132/39
[2021-05-10] VITALS: BP 118/39
[2021-05-10 08:00] VITALS: BP 124/41
[2021-05-10 12:00] VITALS: BP 122/48
[2021-05-10 12:17] LABS: CREATININE 1.24 mg/dL (0.55-1.02); POTASSIUM 3.9 mmol/L (3.5-5.1)
[2021-05-10] MEDS ORDERED: HYDROCODONE-AC1 EAC2 PO ×2 (13:37→15:09)
== END 2021-05-10 19:25 | DRG 551 ==
LOC: ED 18:40 → 5E 22:58 → EDHOLD 22:58 → 5E 23:50
PROVIDERS: Family Medicine; Internal Medicine; Physician Assistant; Registered Nurse; ADMIT Emergency Medicine; ATTEND Emergency Medicine
DX: S32.10XA Unspecified fracture of sacrum, initial encounter for closed fracture (principal); N17.0 Acute kidney failure with tubular necrosis; E44.0 Moderate protein-calorie malnutrition; J96.10 Chronic respiratory failure, unspecified whether with hypoxia or hypercapnia; Z68.41 Body mass index [BMI] 40.0-44.9, adult; Z20.822 Contact with and (suspected) exposure to COVID-19; R26.2 Difficulty in walking, not elsewhere classified; D53.9 Nutritional anemia, unspecified; D72.810 Lymphocytopenia; E11.65 Type 2 diabetes mellitus with hyperglycemia; G47.33 Obstructive sleep apnea (adult) (pediatric); I25.10 Atherosclerotic heart disease of native coronary artery without angina pectoris; I48.91 Unspecified atrial fibrillation; E78.5 Hyperlipidemia, unspecified; E03.9 Hypothyroidism, unspecified; I10 Essential (primary) hypertension; Z90.49 Acquired absence of other specified parts of digestive tract; K21.9 Gastro-esophageal reflux disease without esophagitis; Z90.710 Acquired absence of both cervix and uterus; Z87.891 Personal history of nicotine dependence; Z82.49 Family history of ischemic heart disease and other diseases of the circulatory system; Z88.5 Allergy status to narcotic agent; Z88.1 Allergy status to other antibiotic agents; Z79.51 Long term (current) use of inhaled steroids; Z79.82 Long term (current) use of aspirin; Z79.1 Long term (current) use of non-steroidal anti-inflammatories (NSAID); Z79.899 Other long term (current) drug therapy; Z79.01 Long term (current) use of anticoagulants; W19.XXXA Unspecified fall, initial encounter; Y93.89 Activity, other specified; Y92.89 Other specified places as the place of occurrence of the external cause; Y99.8 Other external cause status

== ENCOUNTER 2021-07-27 12:53 | Inpatient (IN) | payer MEDICARE, OTHER, MEDICAID ==
[~2021-07-27] VITALS: Ht 167.6 cm; Wt 122.5 kg
[~2021-07-27 12:53] MED LIST changes: +CETIRIZINE HYDR10 MG PO; +HYDROCODONE-AC1 EAC2 PO; +LASIX80 MG PO; +TIMOLOL MALEATE10 M1 OPH; +XARE20MG PO
[2021-07-27 12:59] VITALS: BP 137/61
[2021-07-27 13:11] LABS: BASO % 0.7 % (0.0-1.0); EOS # 0.2 10*3/uL (0.0-0.4); EOS % 3.6 % (1.0-4.0); LYMPH # 0.8 10*3/uL (1.3-4.4); LYMPH % 17.8 % (27.0-41.0); MEAN CORPUSCULAR HGB 28.6 pg (27.0-31.0); MEAN CORPUSCULAR HGB CONC 28.6 g/dl (33.0-37.0); MEAN PLATELET VOLUME 9.4 fl (9.6-12.3); MONO # 0.5 10*3/uL (0.1-1.0); MONO % 11.6 % (3.0-9.0); NEUT # 2.9 10*3/uL (2.3-7.9); NEUT % 65.6 % (47.0-73.0); PLATELET COUNT AUTOMATED 230 10*3/uL (130-400); RED CELL DISTRI WIDTH 15.2 % (0-14.5); WHITE BLOOD COUNT 4.4 10*3/uL (4.8-10.8)
[2021-07-27 13:29] LABS: CREATININE 1.19 mg/dL (0.55-1.02); POTASSIUM 4.3 mmol/L (3.5-5.1); TOTAL PROTEIN 6.3 gm/dL (6.4-8.2)
[2021-07-27 13:48] LABS: INTERNATIONAL NORM RATIO 1.7 (2.0-3.5)
[2021-07-27] MEDS ORDERED: Percocet 325 MG1 TAB PO (16:04)
[2021-07-27 18:38] LABS: BASO % 0.4 % (0.0-1.0); EOS # 0.1 10*3/uL (0.0-0.4); EOS % 1.2 % (1.0-4.0); HEMATOCRIT 29.8 % (37.0-47.0); LYMPH # 0.6 10*3/uL (1.3-4.4); LYMPH % 8.3 % (27.0-41.0); MEAN CELL VOLUME 101.4 fl (81.0-99.0); MEAN CORPUSCULAR HGB 28.9 pg (27.0-31.0); MEAN CORPUSCULAR HGB CONC 28.5 g/dl (33.0-37.0); MEAN PLATELET VOLUME 9.3 fl (9.6-12.3); MONO # 0.7 10*3/uL (0.1-1.0); MONO % 9.2 % (3.0-9.0); NEUT # 6.1 10*3/uL (2.3-7.9); NEUT % 80.4 % (47.0-73.0); PLATELET COUNT AUTOMATED 229 10*3/uL (130-400); RED BLOOD COUNT 2.94 10*6/uL (4.10-5.10); RED CELL DISTRI WIDTH 15.4 % (0-14.5); WHITE BLOOD COUNT 7.6 10*3/uL (4.8-10.8)
[2021-07-27 18:56] LABS: ALKALINE PHOSPHATASE 66 U/L (45-117); BUN 16 mg/dl (7-24); CHLORIDE 104 mmol/L (98-107); CREATININE 1.04 mg/dL (0.55-1.02); POTASSIUM 4.4 mmol/L (3.5-5.1); SGOT/AST 13 IU/L (3-35); SGPT/ALT 17 U/L (12-78); SODIUM 141 mmol/L (136-145); TOTAL PROTEIN 6.7 gm/dL (6.4-8.2)
[2021-07-27 19:22] VITALS: BP 112/70
[2021-07-27] MEDS ORDERED: FUROSEMIDE40 MG PO ×2 (20:16→20:21)
[2021-07-27] MEDS ORDERED: WARFARIN SODIUM4 MG PO (20:17)
[2021-07-27] MEDS ORDERED: WARFARIN SODIUM1 MG PO (20:17)
[2021-07-27 21:44] VITALS: BP 142/63
[2021-07-27 21:50] VITALS: BP 137/61
[2021-07-28] VITALS: BP 137/66
[2021-07-28 06:27] LABS: BASO % 0.4 % (0.0-1.0); EOS % 0.4 % (1.0-4.0); HEMATOCRIT 28.9 % (37.0-47.0); LYMPH # 0.5 10*3/uL (1.3-4.4); LYMPH % 7.1 % (27.0-41.0); MEAN CELL VOLUME 99.7 fl (81.0-99.0); MEAN CORPUSCULAR HGB 28.6 pg (27.0-31.0); MEAN CORPUSCULAR HGB CONC 28.7 g/dl (33.0-37.0); MEAN PLATELET VOLUME 9.4 fl (9.6-12.3); MONO # 0.8 10*3/uL (0.1-1.0); MONO % 11.7 % (3.0-9.0); NEUT # 5.5 10*3/uL (2.3-7.9); NEUT % 80.1 % (47.0-73.0); PLATELET COUNT AUTOMATED 227 10*3/uL (130-400); RED CELL DISTRI WIDTH 15.2 % (0-14.5); WHITE BLOOD COUNT 6.9 10*3/uL (4.8-10.8)
[2021-07-28 06:43] LABS: BUN 16 mg/dl (7-24); CHLORIDE 104 mmol/L (98-107); CREATININE 0.99 mg/dL (0.55-1.02); POTASSIUM 4.2 mmol/L (3.5-5.1); SODIUM 140 mmol/L (136-145)
[2021-07-28 06:54] LABS: INTERNATIONAL NORM RATIO 1.7 (2.0-3.5)
[2021-07-28 08:00] VITALS: BP 148/76
[2021-07-28 12:00] VITALS: BP 142/74
[2021-07-28 16:00] VITALS: BP 147/70
[2021-07-28 20:00] VITALS: BP 136/50
[2021-07-29] VITALS: BP 155/65
[2021-07-29 06:18] LABS: BUN 14 mg/dl (7-24); CHLORIDE 99 mmol/L (98-107); POTASSIUM 4.3 mmol/L (3.5-5.1); SODIUM 138 mmol/L (136-145)
[2021-07-29 06:19] LABS: CREATININE 0.97 mg/dL (0.55-1.02)
[2021-07-29 06:20] LABS: BASO % 0.2 % (0.0-1.0); EOS % 0.1 % (1.0-4.0); HEMATOCRIT 28.8 % (37.0-47.0); LYMPH # 0.5 10*3/uL (1.3-4.4); LYMPH % 5.8 % (27.0-41.0); MEAN CELL VOLUME 98.3 fl (81.0-99.0); MEAN CORPUSCULAR HGB 28.7 pg (27.0-31.0); MEAN CORPUSCULAR HGB CONC 29.2 g/dl (33.0-37.0); MONO # 1.4 10*3/uL (0.1-1.0); MONO % 14.4 % (3.0-9.0); NEUT # 7.4 10*3/uL (2.3-7.9); NEUT % 78.9 % (47.0-73.0); PLATELET COUNT AUTOMATED 239 10*3/uL (130-400); RED BLOOD COUNT 2.93 10*6/uL (4.10-5.10); WHITE BLOOD COUNT 9.4 10*3/uL (4.8-10.8)
[2021-07-29 08:00] VITALS: BP 106/86
[2021-07-29 12:00] VITALS: BP 146/84
[2021-07-29] MEDS ORDERED: WARFARIN SOD5 MG PO (12:36)
[2021-07-29 16:00] VITALS: BP 119/83
[2021-08-01] MEDS ORDERED: HYDROCODONE-AC1 EAC1 PO ×2 (14:48→14:50)
== END 2021-07-29 16:45 | DRG 292 ==
LOC: ED 12:53 → EDHOLD 21:07 → 4E 21:07
PROVIDERS: Emergency Medicine; Family Medicine; Internal Medicine; ADMIT Family Medicine; ATTEND Family Medicine
DX: I50.33 Acute on chronic diastolic (congestive) heart failure (principal); E44.0 Moderate protein-calorie malnutrition; J96.10 Chronic respiratory failure, unspecified whether with hypoxia or hypercapnia; Z68.41 Body mass index [BMI] 40.0-44.9, adult; W19.XXXA Unspecified fall, initial encounter; R26.2 Difficulty in walking, not elsewhere classified; R25.1 Tremor, unspecified; R13.10 Dysphagia, unspecified; R79.1 Abnormal coagulation profile; I48.91 Unspecified atrial fibrillation; M25.561 Pain in right knee; E11.65 Type 2 diabetes mellitus with hyperglycemia; D53.9 Nutritional anemia, unspecified; S00.03XA Contusion of scalp, initial encounter; S39.012A Strain of muscle, fascia and tendon of lower back, initial encounter; Z79.01 Long term (current) use of anticoagulants; Y93.89 Activity, other specified; Y92.89 Other specified places as the place of occurrence of the external cause; Y99.8 Other external cause status; Z88.5 Allergy status to narcotic agent; Z88.1 Allergy status to other antibiotic agents; Z79.1 Long term (current) use of non-steroidal anti-inflammatories (NSAID); Z79.899 Other long term (current) drug therapy; Z90.710 Acquired absence of both cervix and uterus; Z90.49 Acquired absence of other specified parts of digestive tract; Z87.891 Personal history of nicotine dependence; Z82.49 Family history of ischemic heart disease and other diseases of the circulatory system; Z20.828 Contact with and (suspected) exposure to other viral communicable diseases

== ENCOUNTER → 2021-10-25 | Outpatient (CLI) | payer MEDICARE, OTHER, MEDICAID ==
[~2021-10-25] MED LIST changes: +AMOXICILLIN500 M3 PO; +CHEST CONGESTI400 MG PO; +HYDROCODONE-AC1 EAC1 PO; +K-TAB20 MEQ PO; +NEURONTIN600 MG PO; +Percocet 325 MG1 TAB PO; +WARFARIN SOD5 MG PO; +WARFARIN SODIUM4 MG PO
[2021-10-25 13:01] LABS: BASO % 0.7 % (0.0-1.0); EOS # 0.1 10*3/uL (0.0-0.4); EOS % 1.8 % (1.0-4.0); HEMATOCRIT 28.7 % (37.0-47.0); LYMPH # 0.8 10*3/uL (1.3-4.4); LYMPH % 13.8 % (27.0-41.0); MEAN CORPUSCULAR HGB 29.4 pg (27.0-31.0); MEAN CORPUSCULAR HGB CONC 30.3 g/dl (33.0-37.0); MONO # 0.5 10*3/uL (0.1-1.0); MONO % 9.5 % (3.0-9.0); NEUT # 4.2 10*3/uL (2.3-7.9); NEUT % 73.7 % (47.0-73.0); PLATELET COUNT AUTOMATED 202 10*3/uL (130-400); RED BLOOD COUNT 2.96 10*6/uL (4.10-5.10); RED CELL DISTRI WIDTH 16.9 % (0-14.5); WHITE BLOOD COUNT 5.7 10*3/uL (4.8-10.8)
[2021-10-25 13:18] LABS: CREATININE 1.41 mg/dL (0.55-1.02); POTASSIUM 4.3 mmol/L (3.5-5.1); TOTAL PROTEIN 7.1 gm/dL (6.4-8.2)
== END | disposition home or self-care (01) ==
LOC: LAB 12:38
PROVIDERS: Student in an Organized Health Care Education/Training Program; ATTEND Family Medicine
DX: J98.11 Atelectasis (principal); I50.22 Chronic systolic (congestive) heart failure

== ENCOUNTER 2021-11-11 16:46 | Emergency (ER) | payer MEDICARE, OTHER, MEDICAID ==
[~2021-11-11] VITALS: Ht 170.1 cm; Wt 115.2 kg
[~2021-11-11 16:46] MED LIST changes: +BENZONATATE100 M1 PO; +PREDNISONE10 MG PO; +ZITHROMAX250 MG PO
[2021-11-11 17:02] VITALS: BP 111/57
[2021-11-11 17:45] LABS: BILIRUBIN Negative (Negative); BLOOD 3+ (Negative); CLARITY Turbid (Clear); COLOR Orange (Yellow); GLUCOSE 2+ (Negative); KETONE Negative (Negative); LEUKO ESTERASE 3+ (Negative); NITRITE Negative (Negative); PH 5.5 (4.5-8.0); SPECIFIC GRAVITY 1.015 (1.001-1.030); UROBILINOGEN 0.2 E.U./dl (0.0-1.0)
[2021-11-11 17:51] LABS: RBC TNTC rbc/hpf (0-2); WBC TNTC wbc/hpf (0-5)
[2021-11-11 17:57] LABS: HEMATOCRIT 24.4 % (37.0-47.0); MEAN CELL VOLUME 102.1 fl (81.0-99.0); MEAN CORPUSCULAR HGB 29.3 pg (27.0-31.0); MEAN CORPUSCULAR HGB CONC 28.7 g/dl (33.0-37.0); MEAN PLATELET VOLUME 9.2 fl (9.6-12.3); PLATELET COUNT AUTOMATED 143 10*3/uL (130-400); RED BLOOD COUNT 2.39 10*6/uL (4.10-5.10); RED CELL DISTRI WIDTH 17.7 % (0-14.5); WHITE BLOOD COUNT 9.8 10*3/uL (4.8-10.8)
[2021-11-11 18:01] LABS: MANUAL DIFF REFLEX YES
[2021-11-11 18:12] LABS: CREATININE 1.7 mg/dL (0.55-1.02); POTASSIUM 4.5 mmol/L (3.5-5.1); TOTAL PROTEIN 5.5 gm/dL (6.4-8.2)
[2021-11-11 18:21] LABS: PLATELET SUFFICIENCY NORMAL (NORMAL); POLYCHROMASIA SLIGHT; TOTAL CELLS COUNTED 100 #CELLS
[2021-11-11] MEDS ORDERED: MACROBID100 M1 PO (20:18)
== END 2021-11-11 20:25 | disposition home or self-care (01) ==
LOC: ED 16:46
PROVIDERS: Physician Assistant
DX: N39.0 Urinary tract infection, site not specified (principal); D53.9 Nutritional anemia, unspecified; Z79.899 Other long term (current) drug therapy; Z90.49 Acquired absence of other specified parts of digestive tract; Z90.710 Acquired absence of both cervix and uterus; Z90.89 Acquired absence of other organs; Z98.890 Other specified postprocedural states; Z87.891 Personal history of nicotine dependence

== ENCOUNTER → 2021-12-17 | Outpatient (CLI) | payer MEDICARE, OTHER, MEDICAID ==
[~2021-12-17] MED LIST changes: +ALL DAY ALLERGY10 M2 PO; +HYDROCOD-HOMAT1 EACH PO; +HYDROCODON-ACE1 EAC1 PO; +MACROBID100 M1 PO; +POTASSIUM CHLO20 ME4 PO
[2021-12-17 11:39] LABS: BASO % 0.5 % (0.0-1.0); EOS # 0.1 10*3/uL (0.0-0.4); EOS % 2.6 % (1.0-4.0); HEMATOCRIT 29.7 % (37.0-47.0); LYMPH # 0.7 10*3/uL (1.3-4.4); LYMPH % 17.3 % (27.0-41.0); MEAN CELL VOLUME 103.8 fl (81.0-99.0); MEAN CORPUSCULAR HGB 30.8 pg (27.0-31.0); MEAN CORPUSCULAR HGB CONC 29.6 g/dl (33.0-37.0); MEAN PLATELET VOLUME 10.7 fl (9.6-12.3); MONO # 0.5 10*3/uL (0.1-1.0); MONO % 13.6 % (3.0-9.0); NEUT # 2.5 10*3/uL (2.3-7.9); NEUT % 65.7 % (47.0-73.0); PLATELET COUNT AUTOMATED 184 10*3/uL (130-400); RED BLOOD COUNT 2.86 10*6/uL (4.10-5.10); WHITE BLOOD COUNT 3.8 10*3/uL (4.8-10.8)
== END ==
LOC: LAB 10:43
PROVIDERS: ATTEND Nurse Practitioner Family
DX: D64.9 Anemia, unspecified (principal)

== ENCOUNTER → 2022-04-11 | Outpatient (CLI) | payer MEDICARE, OTHER, MEDICAID ==
[2022-04-11 11:02] LABS: BASO % 0.7 % (0.0-1.0); EOS # 0.1 10*3/uL (0.0-0.4); EOS % 2.3 % (1.0-4.0); HEMATOCRIT 32.3 % (37.0-47.0); LYMPH # 0.8 10*3/uL (1.3-4.4); LYMPH % 17.1 % (27.0-41.0); MEAN CELL VOLUME 100.9 fl (81.0-99.0); MEAN CORPUSCULAR HGB 30.6 pg (27.0-31.0); MEAN CORPUSCULAR HGB CONC 30.3 g/dl (33.0-37.0); MEAN PLATELET VOLUME 9.6 fl (9.6-12.3); MONO # 0.5 10*3/uL (0.1-1.0); MONO % 11.9 % (3.0-9.0); NEUT % 67.8 % (47.0-73.0); PLATELET COUNT AUTOMATED 189 10*3/uL (130-400); RED CELL DISTRI WIDTH 14.7 % (0-14.5); WHITE BLOOD COUNT 4.4 10*3/uL (4.8-10.8)
[2022-04-11 12:04] LABS: FREE T4 0.96 ng/dl (0.89-1.76); POTASSIUM 3.9 mmol/L (3.4-5.1); THYROID STIM HORMONE (HS) 3.641 uIU/ml (0.550-4.780); TOTAL PROTEIN 6.4 gm/dL (6.0-8.0)
[2022-04-11 12:13] LABS: VITAMIN D, 25-HYDROXY 61.1 ng/mL (30-100)
== END | disposition home or self-care (01) ==
LOC: LAB 10:11
PROVIDERS: ATTEND Family Medicine
DX: E11.42 Type 2 diabetes mellitus with diabetic polyneuropathy (principal); E55.9 Vitamin D deficiency, unspecified; E03.9 Hypothyroidism, unspecified; G62.9 Polyneuropathy, unspecified

== ENCOUNTER 2022-05-20 14:04 | Inpatient (IN) | payer MEDICARE, OTHER, MEDICAID ==
[~2022-05-20] VITALS: Ht 170 cm; Wt 116.0 kg
[2022-05-20 14:06] VITALS: BP 120/60
[2022-05-20 15:02] LABS: BASO % 0.6 % (0.0-1.0); EOS # 0.1 10*3/uL (0.0-0.4); EOS % 1.4 % (1.0-4.0); HEMATOCRIT 28.5 % (37.0-47.0); LYMPH # 0.7 10*3/uL (1.3-4.4); LYMPH % 13.4 % (27.0-41.0); MEAN CELL VOLUME 104.4 fl (81.0-99.0); MEAN CORPUSCULAR HGB CONC 28.8 g/dl (33.0-37.0); MEAN PLATELET VOLUME 9.4 fl (9.6-12.3); MONO # 0.6 10*3/uL (0.1-1.0); MONO % 12.4 % (3.0-9.0); NEUT # 3.5 10*3/uL (2.3-7.9); NEUT % 71.8 % (47.0-73.0); PLATELET COUNT AUTOMATED 202 10*3/uL (130-400); RED BLOOD COUNT 2.73 10*6/uL (4.10-5.10); RED CELL DISTRI WIDTH 14.4 % (0-14.5); WHITE BLOOD COUNT 4.9 10*3/uL (4.8-10.8)
[2022-05-20 15:21] LABS: TOTAL PROTEIN 6.1 gm/dL (6.0-8.0)
[2022-05-20 15:54] LABS: BILIRUBIN Negative (Negative); BLOOD Negative (Negative); CLARITY Clear (Clear); COLOR Yellow (Yellow); GLUCOSE Negative (Negative); KETONE Negative (Negative); LEUKO ESTERASE Negative (Negative); NITRITE Negative (Negative); SPECIFIC GRAVITY <= 1.005 (1.001-1.030); UROBILINOGEN 0.2 E.U./dl (0.0-1.0)
[2022-05-20 16:02] LABS: BACTERIA TRACE; EPITHELIAL CELLS 0-2; RBC 0-2 rbc/hpf (0-2)
[2022-05-20 17:39] VITALS: BP 136/54
[2022-05-20] MEDS ORDERED: LASIX20 MG PO (17:44)
[2022-05-20] MEDS ORDERED: VENT7GM INH (17:46)
[2022-05-20] MEDS ORDERED: LATANOPROST2.5 ML OP (17:47)
[2022-05-20] MEDS ORDERED: BREO ELLIPTA 21 EACH INH (17:48)
[2022-05-20] MEDS ORDERED: SPIRIVA -- 3018 MCG INH (17:49)
[2022-05-20] MEDS ORDERED: TIMOLOL MALEATE10 M1 OPH (17:49)
[2022-05-20 20:00] VITALS: BP 126/57
[2022-05-21 00:01] VITALS: BP 126/57
[2022-05-21 06:43] LABS: EOS # 0.1 10*3/uL (0.0-0.4); EOS % 2.9 % (1.0-4.0); HEMATOCRIT 28.2 % (37.0-47.0); LYMPH % 23.4 % (27.0-41.0); MEAN CELL VOLUME 104.4 fl (81.0-99.0); MEAN CORPUSCULAR HGB 30.7 pg (27.0-31.0); MEAN CORPUSCULAR HGB CONC 29.4 g/dl (33.0-37.0); MEAN PLATELET VOLUME 9.5 fl (9.6-12.3); MONO # 0.6 10*3/uL (0.1-1.0); MONO % 14.1 % (3.0-9.0); NEUT # 2.4 10*3/uL (2.3-7.9); NEUT % 58.1 % (47.0-73.0); PLATELET COUNT AUTOMATED 227 10*3/uL (130-400); RED CELL DISTRI WIDTH 14.1 % (0-14.5); WHITE BLOOD COUNT 4.2 10*3/uL (4.8-10.8)
[2022-05-21 07:20] LABS: FREE T4 1.01 ng/dl (0.89-1.76); POTASSIUM 3.8 mmol/L (3.4-5.1); THYROID STIM HORMONE (HS) 1.55 uIU/ml (0.550-4.780); TOTAL PROTEIN 5.9 gm/dL (6.0-8.0)
[2022-05-21 07:45] LABS: VITAMIN D, 25-HYDROXY 67.5 ng/mL (30-100)
[2022-05-21 13:20] VITALS: BP 118/47
[2022-05-21 16:00] VITALS: BP 112/51
[2022-05-21 20:00] VITALS: BP 112/59
[2022-05-22] VITALS: BP 102/50
[2022-05-22] MEDS ORDERED: DOXEPIN HCL25 MG PO (02:05)
[2022-05-22 05:25] LABS: POTASSIUM 3.8 mmol/L (3.4-5.1)
[2022-05-22 06:26] LABS: BASO % 0.6 % (0.0-1.0); EOS # 0.2 10*3/uL (0.0-0.4); EOS % 3.2 % (1.0-4.0); LYMPH % 20.3 % (27.0-41.0); MEAN CELL VOLUME 105.1 fl (81.0-99.0); MEAN CORPUSCULAR HGB 29.7 pg (27.0-31.0); MEAN CORPUSCULAR HGB CONC 28.3 g/dl (33.0-37.0); MEAN PLATELET VOLUME 9.9 fl (9.6-12.3); MONO # 0.7 10*3/uL (0.1-1.0); NEUT # 2.9 10*3/uL (2.3-7.9); NEUT % 61.7 % (47.0-73.0); PLATELET COUNT AUTOMATED 222 10*3/uL (130-400); RED BLOOD COUNT 2.76 10*6/uL (4.10-5.10); RED CELL DISTRI WIDTH 13.7 % (0-14.5); WHITE BLOOD COUNT 4.7 10*3/uL (4.8-10.8)
[2022-05-22 08:00] VITALS: BP 104/31
[2022-05-22 12:00] VITALS: BP 105/77
== END 2022-05-22 15:14 | disposition home health service (06) | DRG 948 ==
LOC: ED 14:04 → 5E 18:24 → EDHOLD 18:24 → 5E 05-21 12:00
PROVIDERS: Family Medicine; Nurse Practitioner Family; ADMIT Emergency Medicine; ATTEND Emergency Medicine
DX: R53.1 Weakness (principal); E44.0 Moderate protein-calorie malnutrition; Z68.41 Body mass index [BMI] 40.0-44.9, adult; I50.32 Chronic diastolic (congestive) heart failure; D53.9 Nutritional anemia, unspecified; I48.91 Unspecified atrial fibrillation; J44.9 Chronic obstructive pulmonary disease, unspecified; I11.0 Hypertensive heart disease with heart failure; E78.5 Hyperlipidemia, unspecified; I25.10 Atherosclerotic heart disease of native coronary artery without angina pectoris; G47.33 Obstructive sleep apnea (adult) (pediatric); E11.65 Type 2 diabetes mellitus with hyperglycemia; K21.9 Gastro-esophageal reflux disease without esophagitis; Z90.49 Acquired absence of other specified parts of digestive tract; Z90.710 Acquired absence of both cervix and uterus; Z87.891 Personal history of nicotine dependence; I25.2 Old myocardial infarction; Z82.49 Family history of ischemic heart disease and other diseases of the circulatory system; Z79.1 Long term (current) use of non-steroidal anti-inflammatories (NSAID); Z79.899 Other long term (current) drug therapy

== ENCOUNTER → 2022-06-14 | Outpatient (CLI) | payer MEDICARE, OTHER, MEDICAID ==
[~2022-06-14] MED LIST changes: +BREO ELLIPTA 21 EACH INH; +DOXEPIN HCL25 MG PO; +LATANOPROST2.5 ML OP; +SPIRIVA -- 3018 MCG INH; +VENT7GM INH
[2022-06-14 16:51] LABS: RETICULOCYTE % 4.71 % (0.50-2.50)
== END | disposition home or self-care (01) ==
LOC: LAB 15:45
PROVIDERS: ATTEND Student in an Organized Health Care Education/Training Program
DX: D53.9 Nutritional anemia, unspecified (principal)

== ENCOUNTER → 2022-06-20 | Outpatient (CLI) | payer MEDICARE, OTHER, MEDICAID ==
[~2022-06-20] MED LIST changes: +ARTHRITIS PAIN150 GM T; +DULERA 200 MCG-13 GM INH; +LASIX40 MG PO; +ROSUVASTATIN CA10 MG PO
== END | disposition home or self-care (01) ==
LOC: RAD 13:31
PROVIDERS: ATTEND Family Medicine
DX: J44.9 Chronic obstructive pulmonary disease, unspecified (principal); I51.7 Cardiomegaly

== ENCOUNTER → 2022-10-05 | Outpatient (CLI) | payer MEDICARE, OTHER, MEDICAID ==
[~2022-10-05] MED LIST changes: +CALCIUM CARBON600 M4 PO; +ONDANSETRON HYDR4 MG PO
== END | disposition home or self-care (01) ==
LOC: LAB 13:15
PROVIDERS: ATTEND Physical Medicine & Rehabilitation
DX: R19.5 Other fecal abnormalities (principal); R19.7 Diarrhea, unspecified

== ENCOUNTER → 2023-02-15 | Outpatient (CLI) | payer MEDICARE, OTHER, MEDICAID ==
[~2023-02-15] MED LIST changes: +DOXEPIN25 MG PO; +FUROSEMIDE20 M1 PO; -HYDROCODON-ACE1 EAC1 PO; +LEVOFLOXACIN750 M2 PO; +ONDANSETRON HYDR8 MG PO; +ONDANSETRON4 MG SL; +PROVENTIL HFA6.7 GM PO; +TIMOLOL MALEATE10 M1 OU; +VANCOCIN125 MG PO; +VIBRAMYCIN HYC100 MG PO
[2023-02-15 13:35] LABS: BASO % 0.4 % (0.0-1.0); EOS # 0.1 10*3/uL (0.0-0.4); EOS % 1.3 % (1.0-4.0); HEMATOCRIT 35.1 % (37.0-47.0); LYMPH # 0.6 10*3/uL (1.3-4.4); LYMPH % 13.4 % (27.0-41.0); MEAN CELL VOLUME 97.5 fl (81.0-99.0); MEAN CORPUSCULAR HGB 29.2 pg (27.0-31.0); MEAN CORPUSCULAR HGB CONC 29.9 g/dl (33.0-37.0); MONO # 0.5 10*3/uL (0.1-1.0); MONO % 11.6 % (3.0-9.0); NEUT # 3.4 10*3/uL (2.3-7.9); NEUT % 73.1 % (47.0-73.0); PLATELET COUNT AUTOMATED 154 10*3/uL (130-400); RED CELL DISTRI WIDTH 15.8 % (0-14.5); WHITE BLOOD COUNT 4.6 10*3/uL (4.8-10.8)
== END | disposition home or self-care (01) ==
LOC: LAB 12:46
PROVIDERS: Nurse Practitioner Family; ATTEND Family Medicine
DX: K29.71 Gastritis, unspecified, with bleeding (principal); A04.72 Enterocolitis due to Clostridium difficile, not specified as recurrent

== ENCOUNTER 2023-04-04 14:52 | Inpatient (IN) | payer MEDICARE, OTHER, MEDICAID ==
[~2023-04-04] VITALS: Ht 170.1 cm; Wt 113.9 kg
[2023-04-04 15:10] VITALS: BP 121/56
[2023-04-04 15:46] LABS: BASO % 0.4 % (0.0-1.0); EOS # 0.1 10*3/uL (0.0-0.4); EOS % 1.5 % (1.0-4.0); HEMATOCRIT 38.2 % (37.0-47.0); LYMPH # 0.7 10*3/uL (1.3-4.4); MEAN CORPUSCULAR HGB 28.6 pg (27.0-31.0); MEAN CORPUSCULAR HGB CONC 30.1 g/dl (33.0-37.0); MEAN PLATELET VOLUME 9.5 fl (9.6-12.3); MONO # 0.8 10*3/uL (0.1-1.0); MONO % 11.9 % (3.0-9.0); NEUT # 5.2 10*3/uL (2.3-7.9); NEUT % 75.9 % (47.0-73.0); PLATELET COUNT AUTOMATED 222 10*3/uL (130-400); RED BLOOD COUNT 4.02 10*6/uL (4.10-5.10); RED CELL DISTRI WIDTH 14.8 % (0-14.5); WHITE BLOOD COUNT 6.8 10*3/uL (4.8-10.8)
[2023-04-04 16:01] LABS: ACT PARTIAL THROMBO TIME 24.8 SECONDS (20.0-32.1)
[2023-04-04 16:08] LABS: POTASSIUM 3.9 mmol/L (3.4-5.1); TOTAL PROTEIN 6.8 gm/dL (6.0-8.0)
[2023-04-04] MEDS ORDERED: METRONIDAZOLE 100 ML IV ONE (17:05)
[2023-04-04] MEDS ORDERED: CIPROFLOXACIN 200 ML IV ONE (17:05)
[2023-04-04] MEDS ORDERED: ACETAMINOPHEN 325 MG TAB PO PRN (17:25)
[2023-04-04] MEDS ORDERED: MORPHINE Sulfate 2 MG/ML SYR IV PRN (17:25)
[2023-04-04] MEDS ORDERED: ACETAMINOPHEN 650 MG SUPP R PRN (17:25)
[2023-04-04] MEDS ORDERED: BISACODYL 5 MG TAB PO PRN (17:25)
[2023-04-04] MEDS ORDERED: BISACODYL 10 MG SUPP R PRN (17:25)
[2023-04-04] MEDS ORDERED: Ondansetron Hydrochloride 4 MG/2 ML VIAL IV PRN (17:25)
[2023-04-04] MEDS ORDERED: Magnesium Hydroxide 30 ML UDC PO PRN (17:25)
[2023-04-04] MEDS ORDERED: Acetaminophen/Hydrocodone 5 MG/325 MG TABLET PO PRN (17:25)
[2023-04-04] MEDS ORDERED: CLARITIN10 MG PO (18:24)
[2023-04-04] MEDS ORDERED: SODIUM CHLORIDE 0.9% 1,000 ML IV ONE (18:30)
[2023-04-04 19:54] VITALS: BP 119/62
[2023-04-04] MEDS ORDERED: Piperacillin Sodium/Tazobact 2.25 GM in SODIUM CHLORIDE 0.9% 50 ML IV SCH (20:00)
[2023-04-04 20:45] VITALS: BP 126/58
[2023-04-04] MEDS ORDERED: Doxepin Hydrochloride 25 MG CAP PO SCH (22:00)
[2023-04-04] MEDS ORDERED: LATANOPROST 0.005% 2.5 ML BOTTLE OPH SCH (22:00)
[2023-04-04] MEDS ORDERED: FORMOTEROL FUMARATE INH PRN (22:00)
[2023-04-04] MEDS ORDERED: [UNRECOGNIZED DRUG - OTHER] INH PRN (22:00)
[2023-04-04] MEDS ORDERED: Metoprolol Tartrate 25 MG TAB PO SCH (22:00)
[2023-04-04] MEDS ORDERED: GABAPENTIN 600 MG TAB PO SCH (22:13)
[2023-04-04] MEDS ORDERED: Albuterol Sulf/Ipratropium 3 ML VIAL NEB SCH (22:15)
[2023-04-04] MEDS ORDERED: BUDESONIDE 0.5 MG AMP NEB SCH (22:15)
[2023-04-05] VITALS: BP 129/64
[2023-04-05] MEDS ORDERED: Pantoprazole Sodium 40 MG VIAL IV SCH (06:00)
[2023-04-05] MEDS ORDERED: Levothyroxine Sodium 75 MCG TAB PO SCH (06:00)
[2023-04-05 06:30] LABS: BASO % 0.4 % (0.0-1.0); EOS # 0.2 10*3/uL (0.0-0.4); EOS % 3.8 % (1.0-4.0); HEMATOCRIT 35.3 % (37.0-47.0); LYMPH # 0.8 10*3/uL (1.3-4.4); LYMPH % 15.1 % (27.0-41.0); MEAN CELL VOLUME 95.7 fl (81.0-99.0); MEAN CORPUSCULAR HGB CONC 30.3 g/dl (33.0-37.0); MEAN PLATELET VOLUME 9.6 fl (9.6-12.3); MONO # 0.6 10*3/uL (0.1-1.0); MONO % 11.3 % (3.0-9.0); NEUT # 3.7 10*3/uL (2.3-7.9); PLATELET COUNT AUTOMATED 178 10*3/uL (130-400); RED BLOOD COUNT 3.69 10*6/uL (4.10-5.10); RED CELL DISTRI WIDTH 15.1 % (0-14.5); WHITE BLOOD COUNT 5.3 10*3/uL (4.8-10.8)
[2023-04-05 06:58] LABS: POTASSIUM 4.1 mmol/L (3.4-5.1)
[2023-04-05 08:00] VITALS: BP 123/55
[2023-04-05] MEDS ORDERED: TIOTROPIUM BROMIDE 18 MCG CAPSULES INHALER INH SCH (10:00)
[2023-04-05] MEDS ORDERED: ATORVASTATIN CALCIUM 40 MG TABLET PO SCH (10:00)
[2023-04-05 12:00] VITALS: BP 123/42
[2023-04-05 16:00] VITALS: BP 113/76
[2023-04-05 20:00] VITALS: BP 122/45
[2023-04-05] MEDS ORDERED: Piperacillin Sodium/Tazobact 2.25 GM in SODIUM CHLORIDE 0.9% 50 ML IV SCH (20:00)
[2023-04-06] VITALS: BP 98/56
[2023-04-06 05:42] LABS: POTASSIUM 3.9 mmol/L (3.4-5.1)
[2023-04-06 05:55] LABS: BASO % 0.5 % (0.0-1.0); EOS # 0.2 10*3/uL (0.0-0.4); EOS % 3.7 % (1.0-4.0); HEMATOCRIT 34.3 % (37.0-47.0); LYMPH # 0.8 10*3/uL (1.3-4.4); LYMPH % 13.3 % (27.0-41.0); MEAN CELL VOLUME 95.3 fl (81.0-99.0); MEAN CORPUSCULAR HGB 28.9 pg (27.0-31.0); MEAN CORPUSCULAR HGB CONC 30.3 g/dl (33.0-37.0); MEAN PLATELET VOLUME 10.1 fl (9.6-12.3); MONO # 0.8 10*3/uL (0.1-1.0); MONO % 14.5 % (3.0-9.0); NEUT # 3.8 10*3/uL (2.3-7.9); NEUT % 67.8 % (47.0-73.0); PLATELET COUNT AUTOMATED 194 10*3/uL (130-400); RED CELL DISTRI WIDTH 15.3 % (0-14.5); WHITE BLOOD COUNT 5.7 10*3/uL (4.8-10.8)
[2023-04-06 08:00] VITALS: BP 138/66
[2023-04-06 09:11] LABS: BILIRUBIN Negative (Negative); BLOOD Negative (Negative); CLARITY Clear (Clear); COLOR Yellow (Yellow); GLUCOSE Negative (Negative); KETONE Negative (Negative); LEUKO ESTERASE 2+ (Negative); NITRITE Negative (Negative); PH 7.5 (4.5-8.0); UROBILINOGEN 0.2 E.U./dl (0.0-1.0)
[2023-04-06 09:19] LABS: EPITHELIAL CELLS 16-20; WBC 21-30 wbc/hpf (0-5)
[2023-04-06 09:20] LABS: BACTERIA 1+
[2023-04-06 12:00] VITALS: BP 138/66
[2023-04-06 15:50] VITALS: BP 130/50
[2023-04-06 20:00] VITALS: BP 129/57
[2023-04-07] VITALS: BP 121/52
[2023-04-07 04:23] LABS: BASO % 0.4 % (0.0-1.0); EOS # 0.1 10*3/uL (0.0-0.4); EOS % 1.4 % (1.0-4.0); HEMATOCRIT 33.4 % (37.0-47.0); LYMPH # 0.9 10*3/uL (1.3-4.4); LYMPH % 15.8 % (27.0-41.0); MEAN CELL VOLUME 95.2 fl (81.0-99.0); MEAN CORPUSCULAR HGB 28.5 pg (27.0-31.0); MEAN CORPUSCULAR HGB CONC 29.9 g/dl (33.0-37.0); MEAN PLATELET VOLUME 9.8 fl (9.6-12.3); MONO # 0.9 10*3/uL (0.1-1.0); MONO % 16.8 % (3.0-9.0); NEUT # 3.6 10*3/uL (2.3-7.9); NEUT % 65.2 % (47.0-73.0); PLATELET COUNT AUTOMATED 168 10*3/uL (130-400); RED BLOOD COUNT 3.51 10*6/uL (4.10-5.10); RED CELL DISTRI WIDTH 15.2 % (0-14.5); WHITE BLOOD COUNT 5.6 10*3/uL (4.8-10.8)
[2023-04-07 04:46] LABS: POTASSIUM 3.4 mmol/L (3.4-5.1)
[2023-04-07 08:00] VITALS: BP 108/50
[2023-04-07 12:00] VITALS: BP 124/52
[2023-04-07 16:00] VITALS: BP 130/50
[2023-04-07 20:00] VITALS: BP 136/55
[2023-04-08] VITALS: BP 135/59
[2023-04-08 05:13] LABS: POTASSIUM 4.1 mmol/L (3.4-5.1)
[2023-04-08 06:18] LABS: BASO % 0.6 % (0.0-1.0); EOS # 0.2 10*3/uL (0.0-0.4); EOS % 4.1 % (1.0-4.0); HEMATOCRIT 32.9 % (37.0-47.0); LYMPH # 0.8 10*3/uL (1.3-4.4); LYMPH % 15.1 % (27.0-41.0); MEAN CELL VOLUME 94.8 fl (81.0-99.0); MEAN CORPUSCULAR HGB 28.2 pg (27.0-31.0); MEAN CORPUSCULAR HGB CONC 29.8 g/dl (33.0-37.0); MEAN PLATELET VOLUME 10.1 fl (9.6-12.3); MONO # 0.8 10*3/uL (0.1-1.0); MONO % 14.8 % (3.0-9.0); NEUT # 3.5 10*3/uL (2.3-7.9); NEUT % 65.2 % (47.0-73.0); PLATELET COUNT AUTOMATED 174 10*3/uL (130-400); RED BLOOD COUNT 3.47 10*6/uL (4.10-5.10); RED CELL DISTRI WIDTH 14.9 % (0-14.5); WHITE BLOOD COUNT 5.4 10*3/uL (4.8-10.8)
[2023-04-08 08:00] VITALS: BP 127/56
[2023-04-08 12:00] VITALS: BP 101/46
[2023-04-08] MEDS ORDERED: METRONIDAZOLE500 M1 PO (15:18)
[2023-04-08] MEDS ORDERED: CIPRO500 MG PO (15:18)
== END 2023-04-08 18:05 | disposition home or self-care (01) | DRG 392 ==
LOC: ED 14:52 → EDHOLD 17:19 → 5E 17:19
PROVIDERS: Emergency Medicine; Internal Medicine; Student in an Organized Health Care Education/Training Program; ADMIT Family Medicine; ATTEND Family Medicine
DX: K57.32 Diverticulitis of large intestine without perforation or abscess without bleeding (principal); I50.32 Chronic diastolic (congestive) heart failure; I13.0 Hypertensive heart and chronic kidney disease with heart failure and stage 1 through stage 4 chronic kidney disease, or unspecified chronic kidney disease; I48.21 Permanent atrial fibrillation; D64.9 Anemia, unspecified; E03.9 Hypothyroidism, unspecified; K21.9 Gastro-esophageal reflux disease without esophagitis; I25.10 Atherosclerotic heart disease of native coronary artery without angina pectoris; E78.5 Hyperlipidemia, unspecified; G47.33 Obstructive sleep apnea (adult) (pediatric); J44.9 Chronic obstructive pulmonary disease, unspecified; E11.65 Type 2 diabetes mellitus with hyperglycemia; E11.22 Type 2 diabetes mellitus with diabetic chronic kidney disease; N18.32 Chronic kidney disease, stage 3b; Z66 Do not resuscitate; Z88.6 Allergy status to analgesic agent; Z90.49 Acquired absence of other specified parts of digestive tract; Z90.710 Acquired absence of both cervix and uterus; Z98.42 Cataract extraction status, left eye; Z98.41 Cataract extraction status, right eye; Z87.891 Personal history of nicotine dependence; Z82.49 Family history of ischemic heart disease and other diseases of the circulatory system; Z83.3 Family history of diabetes mellitus; Z85.038 Personal history of other malignant neoplasm of large intestine

== ENCOUNTER → 2023-06-26 | Outpatient (CLI) | payer MEDICARE, OTHER, MEDICAID ==
[~2023-06-26] MED LIST changes: +CLARITIN10 MG PO; +METRONIDAZOLE500 M1 PO
== END | disposition home or self-care (01) ==
LOC: LAB 11:26
PROVIDERS: ATTEND Internal Medicine Hematology & Oncology
DX: D72.819 Decreased white blood cell count, unspecified (principal); D50.9 Iron deficiency anemia, unspecified

== ENCOUNTER → 2023-08-28 | Outpatient (CLI) | payer MEDICARE, OTHER, MEDICAID ==
[2023-08-28 16:30] LABS: BASO % 0.6 % (0.0-1.0); EOS # 0.1 10*3/uL (0.0-0.4); EOS % 1.5 % (1.0-4.0); HEMATOCRIT 32.3 % (37.0-47.0); LYMPH # 0.7 10*3/uL (1.3-4.4); LYMPH % 13.4 % (27.0-41.0); MEAN CELL VOLUME 94.2 fl (81.0-99.0); MEAN CORPUSCULAR HGB 29.4 pg (27.0-31.0); MEAN CORPUSCULAR HGB CONC 31.3 g/dl (33.0-37.0); MEAN PLATELET VOLUME 9.8 fl (9.6-12.3); MONO # 0.6 10*3/uL (0.1-1.0); NEUT # 3.9 10*3/uL (2.3-7.9); NEUT % 73.3 % (47.0-73.0); PLATELET COUNT AUTOMATED 176 10*3/uL (130-400); RED BLOOD COUNT 3.43 10*6/uL (4.10-5.10); RED CELL DISTRI WIDTH 18.6 % (0-14.5); WHITE BLOOD COUNT 5.3 10*3/uL (4.8-10.8)
[2023-08-28 17:03] LABS: POTASSIUM 3.4 mmol/L (3.4-5.1)
[2023-08-28 17:06] LABS: VITAMIN D, 25-HYDROXY 84.1 ng/mL (30-100)
== END | disposition home or self-care (01) ==
LOC: LAB 15:44
PROVIDERS: ATTEND Internal Medicine Nephrology
DX: E11.22 Type 2 diabetes mellitus with diabetic chronic kidney disease (principal); E11.40 Type 2 diabetes mellitus with diabetic neuropathy, unspecified; N18.32 Chronic kidney disease, stage 3b; D63.1 Anemia in chronic kidney disease; N25.81 Secondary hyperparathyroidism of renal origin

== ENCOUNTER → 2023-08-29 | Outpatient (CLI) | payer MEDICARE, OTHER, MEDICAID ==
[2023-08-29 14:20] LABS: URINE CREATININE RANDOM 36.65 mg/dL
[2023-08-29 14:27] LABS: BILIRUBIN Negative (Negative); BLOOD Negative (Negative); CLARITY Clear (Clear); COLOR Yellow (Yellow); GLUCOSE Negative (Negative); KETONE Negative (Negative); LEUKO ESTERASE 3+ (Negative); NITRITE Negative (Negative); UROBILINOGEN 0.2 E.U./dl (0.0-1.0)
[2023-08-29 14:46] LABS: HYALINE CAST 0-2
[2023-08-29 14:47] LABS: BACTERIA TRACE; WBC TNTC wbc/hpf (0-5)
== END | disposition home or self-care (01) ==
LOC: LAB 13:39
PROVIDERS: ATTEND Internal Medicine Nephrology
DX: E11.22 Type 2 diabetes mellitus with diabetic chronic kidney disease (principal); E11.40 Type 2 diabetes mellitus with diabetic neuropathy, unspecified; N18.32 Chronic kidney disease, stage 3b; N25.81 Secondary hyperparathyroidism of renal origin; D63.1 Anemia in chronic kidney disease

== ENCOUNTER → 2023-10-10 | Outpatient (CLI) | payer MEDICARE, OTHER, MEDICAID ==
[~2023-10-10] MED LIST changes: +FEOSOL325 MG PO; +FUROSEMIDE80 MG PO; +IRON325 M1 PO
[2023-10-10 15:26] LABS: BASO % 0.4 % (0.0-1.0); EOS # 0.1 10*3/uL (0.0-0.4); EOS % 2.1 % (1.0-4.0); HEMATOCRIT 24.4 % (37.0-47.0); LYMPH # 0.6 10*3/uL (1.3-4.4); LYMPH % 12.8 % (27.0-41.0); MEAN CELL VOLUME 101.7 fl (81.0-99.0); MEAN CORPUSCULAR HGB 29.2 pg (27.0-31.0); MEAN CORPUSCULAR HGB CONC 28.7 g/dl (33.0-37.0); MEAN PLATELET VOLUME 9.6 fl (9.6-12.3); MONO # 0.6 10*3/uL (0.1-1.0); MONO % 11.9 % (3.0-9.0); NEUT # 3.5 10*3/uL (2.3-7.9); NEUT % 72.6 % (47.0-73.0); PLATELET COUNT AUTOMATED 148 10*3/uL (130-400); RED CELL DISTRI WIDTH 17.2 % (0-14.5); WHITE BLOOD COUNT 4.8 10*3/uL (4.8-10.8)
== END | disposition home or self-care (01) ==
LOC: LAB 14:52
PROVIDERS: ATTEND Physician Assistant Medical
DX: D50.9 Iron deficiency anemia, unspecified (principal); D72.819 Decreased white blood cell count, unspecified

== ENCOUNTER → 2023-11-13 | Outpatient (CLI) | payer MEDICARE, OTHER, MEDICAID | END | disposition home or self-care (01) | LOC: US 02:25 | PROVIDERS: ATTEND Family Medicine | DX: E04.2 Nontoxic multinodular goiter (principal); R22.9 Localized swelling, mass and lump, unspecified ==

== ENCOUNTER → 2023-11-21 | Outpatient (CLI) | payer MEDICARE, OTHER, MEDICAID | END | disposition home or self-care (01) | LOC: US 08:00 | PROVIDERS: ATTEND Family Medicine | DX: E04.2 Nontoxic multinodular goiter (principal); R22.1 Localized swelling, mass and lump, neck ==

== ENCOUNTER 2023-11-24 13:00 | Emergency (ER) | payer MEDICARE, OTHER, MEDICAID ==
[~2023-11-24] VITALS: Ht 170.1 cm; Wt 120.2 kg
[2023-11-24] VITALS (7 sets, daily range): BP systolic 121–151; BP diastolic 42–67
[2023-11-24 13:55] LABS: HEMATOCRIT 23.5 % (37.0-47.0); MEAN CELL VOLUME 95.9 fl (81.0-99.0); MEAN CORPUSCULAR HGB 27.8 pg (27.0-31.0); MEAN CORPUSCULAR HGB CONC 28.9 g/dl (33.0-37.0); MEAN PLATELET VOLUME 9.8 fl (9.6-12.3); PLATELET COUNT AUTOMATED 175 10*3/uL (130-400); RED BLOOD COUNT 2.45 10*6/uL (4.10-5.10); RED CELL DISTRI WIDTH 17.7 % (0-14.5); WHITE BLOOD COUNT 5.6 10*3/uL (4.8-10.8)
[2023-11-24 13:59] LABS: MANUAL DIFF REFLEX YES
[2023-11-24 14:23] LABS: TOTAL CELLS COUNTED 100 #CELLS
[2023-11-24 14:24] LABS: PLATELET SUFFICIENCY NORMAL (NORMAL)
[2023-11-24] MEDS ORDERED: SODIUM CHLORIDE 0.9% 500 ML IV ONE (16:01)
== END 2023-11-24 21:27 | disposition home or self-care (01) ==
LOC: ED 13:00
PROVIDERS: Physician Assistant Medical
DX: D64.9 Anemia, unspecified (principal); I48.91 Unspecified atrial fibrillation; F32.A Depression, unspecified; F41.9 Anxiety disorder, unspecified; J44.9 Chronic obstructive pulmonary disease, unspecified; K21.9 Gastro-esophageal reflux disease without esophagitis; I25.10 Atherosclerotic heart disease of native coronary artery without angina pectoris; I10 Essential (primary) hypertension; E78.00 Pure hypercholesterolemia, unspecified; E03.9 Hypothyroidism, unspecified; E11.40 Type 2 diabetes mellitus with diabetic neuropathy, unspecified; Z88.5 Allergy status to narcotic agent; Z90.49 Acquired absence of other specified parts of digestive tract; Z90.710 Acquired absence of both cervix and uterus; Z90.89 Acquired absence of other organs; Z98.890 Other specified postprocedural states; Z96.652 Presence of left artificial knee joint; Z87.891 Personal history of nicotine dependence

== ENCOUNTER 2023-12-18 12:14 | Inpatient (IN) | payer MEDICARE, OTHER, MEDICAID ==
[~2023-12-18] VITALS: Ht 170.1 cm; Wt 104.9 kg
[~2023-12-18 12:14] MED LIST changes: +ALDACTONE25 MG PO; +FLUONAZOLE150 M1 PO; +MIRALAX POWDER17 G1 PO
[2023-12-18 12:20] VITALS: BP 142/64
[2023-12-18 13:10] LABS: BASO % 0.4 % (0.0-1.0); EOS % 0.4 % (1.0-4.0); HEMATOCRIT 30.4 % (37.0-47.0); MEAN CELL VOLUME 100.7 fl (81.0-99.0); MEAN CORPUSCULAR HGB 29.1 pg (27.0-31.0); MEAN CORPUSCULAR HGB CONC 28.9 g/dl (33.0-37.0); MEAN PLATELET VOLUME 9.2 fl (9.6-12.3); MONO # 0.7 10*3/uL (0.1-1.0); MONO % 13.5 % (3.0-9.0); NEUT # 4.3 10*3/uL (2.3-7.9); NEUT % 78.4 % (47.0-73.0); PLATELET COUNT AUTOMATED 183 10*3/uL (130-400); RED BLOOD COUNT 3.02 10*6/uL (4.10-5.10); RED CELL DISTRI WIDTH 18.9 % (0-14.5); WHITE BLOOD COUNT 5.5 10*3/uL (4.8-10.8)
[2023-12-18 13:21] LABS: ACT PARTIAL THROMBO TIME 26.5 SECONDS (20.0-32.1)
[2023-12-18 13:29] LABS: POTASSIUM 3.7 mmol/L (3.4-5.1)
[2023-12-18 16:00] VITALS: BP 136/40
[2023-12-18] MEDS ORDERED: Ondansetron Hydrochloride 4 MG/2 ML VIAL IV PRN (16:05)
[2023-12-18] MEDS ORDERED: SODIUM CHLORIDE 0.9% 1,000 ML IV SCH (16:05)
[2023-12-18] MEDS ORDERED: DEXTROSE 10 % IN WATER 250 ML IV PRN (16:25)
[2023-12-18] MEDS ORDERED: INSULIN LISPRO 1 UNIT/0.01 ML SQ SCH (16:30)
[2023-12-18 16:56] LABS: BILIRUBIN Negative (Negative); BLOOD Negative (Negative); CLARITY Clear (Clear); COLOR Yellow (Yellow); GLUCOSE Trace (Negative); KETONE Negative (Negative); LEUKO ESTERASE Trace (Negative); NITRITE Negative (Negative); PH 7.5 (4.5-8.0); SPECIFIC GRAVITY <= 1.005 (1.001-1.030); UROBILINOGEN 0.2 E.U./dl (0.0-1.0)
[2023-12-18 17:08] LABS: BACTERIA 3+; WBC 16-20 wbc/hpf (0-5)
[2023-12-18] MEDS ORDERED: DICLOFENAC SODIUM 100 GM TUBE T PRN (17:20)
[2023-12-18] MEDS ORDERED: Acetaminophen/Hydrocodone 5 MG/325 MG TABLET PO PRN (17:20)
[2023-12-18] MEDS ORDERED: Ceftriaxone Sodium 10 ML IV ONE (17:25)
[2023-12-18] MEDS ORDERED: IPRATROPIUM BROMIDE 0.5 MG/2.5 ML AMP NEB SCH (17:25)
[2023-12-18] MEDS ORDERED: FUROSEMIDE 20 MG/2 ML VIAL IV SCH (18:00)
[2023-12-18] MEDS ORDERED: Pantoprazole Sodium 40 MG TAB PO SCH (18:00)
[2023-12-18 19:59] VITALS: BP 147/57
[2023-12-18 21:35] VITALS: BP 149/60
[2023-12-18] MEDS ORDERED: GABAPENTIN 600 MG TAB PO SCH (22:00)
[2023-12-18] MEDS ORDERED: Metoprolol Tartrate 25 MG TAB PO SCH (22:00)
[2023-12-18] MEDS ORDERED: LATANOPROST 0.005% 2.5 ML BOTTLE OPH SCH (22:00)
[2023-12-18] MEDS ORDERED: Doxepin Hydrochloride 25 MG CAP PO SCH (22:00)
[2023-12-18 23:57] VITALS: BP 136/86
[2023-12-19 01:28] VITALS: BP 137/58
[2023-12-19 06:05] LABS: EOS # 0.2 10*3/uL (0.0-0.4); EOS % 4.4 % (1.0-4.0); HEMATOCRIT 29.6 % (37.0-47.0); MEAN CELL VOLUME 97.7 fl (81.0-99.0); MEAN CORPUSCULAR HGB CONC 29.7 g/dl (33.0-37.0); MONO # 0.6 10*3/uL (0.1-1.0); MONO % 15.6 % (3.0-9.0); NEUT # 2.4 10*3/uL (2.3-7.9); NEUT % 63.1 % (47.0-73.0); PLATELET COUNT AUTOMATED 201 10*3/uL (130-400); RED BLOOD COUNT 3.03 10*6/uL (4.10-5.10); RED CELL DISTRI WIDTH 18.9 % (0-14.5); WHITE BLOOD COUNT 3.9 10*3/uL (4.8-10.8)
[2023-12-19 06:20] LABS: POTASSIUM 3.5 mmol/L (3.4-5.1); TOTAL PROTEIN 6.3 gm/dL (6.0-8.0)
[2023-12-19] MEDS ORDERED: Levothyroxine Sodium 75 MCG TAB PO SCH (07:00)
[2023-12-19 08:00] VITALS: BP 114/41
[2023-12-19] MEDS ORDERED: Polyethylene Glycol 3350 17 GM PACKET PO SCH (10:00)
[2023-12-19] MEDS ORDERED: Cetirizine Hydrochloride 10 MG TAB PO SCH (10:00)
[2023-12-19 12:00] VITALS: BP 112/39
[2023-12-19 16:00] VITALS: BP 107/57
[2023-12-19] MEDS ORDERED: Ceftriaxone Sodium 1 GM in SYRINGE INFUSION 10 ML IV SCH (18:00)
[2023-12-19] MEDS ORDERED: HEEL PROTECTOR DEVICE ONE (19:44)
[2023-12-19] MEDS ORDERED: CHAIR CUSHION DEVICE ONE (19:44)
[2023-12-19 20:00] VITALS: BP 128/45
[2023-12-20] VITALS: BP 121/67
[2023-12-20 06:39] LABS: BASO % 0.8 % (0.0-1.0); EOS # 0.2 10*3/uL (0.0-0.4); EOS % 4.9 % (1.0-4.0); HEMATOCRIT 31.2 % (37.0-47.0); MEAN CORPUSCULAR HGB 28.8 pg (27.0-31.0); MEAN CORPUSCULAR HGB CONC 28.8 g/dl (33.0-37.0); MEAN PLATELET VOLUME 9.7 fl (9.6-12.3); MONO # 0.6 10*3/uL (0.1-1.0); NEUT # 3.4 10*3/uL (2.3-7.9); NEUT % 69.3 % (47.0-73.0); PLATELET COUNT AUTOMATED 226 10*3/uL (130-400); RED BLOOD COUNT 3.12 10*6/uL (4.10-5.10); RED CELL DISTRI WIDTH 18.5 % (0-14.5); WHITE BLOOD COUNT 4.9 10*3/uL (4.8-10.8)
[2023-12-20 08:00] VITALS: BP 112/43
[2023-12-20] MEDS ORDERED: FERROUS SULFATE 325 MG TAB PO SCH (10:00)
[2023-12-20 12:00] VITALS: BP 110/53
[2023-12-20 16:00] VITALS: BP 118/44
[2023-12-20 20:00] VITALS: BP 124/54
[2023-12-21] VITALS: BP 105/50
[2023-12-21 05:28] LABS: POTASSIUM 3.6 mmol/L (3.4-5.1)
[2023-12-21 05:30] VITALS: BP 98/54
[2023-12-21 06:13] LABS: BASO # 0.1 10*3/uL (0.0-0.1); BASO % 1.1 % (0.0-1.0); EOS # 0.2 10*3/uL (0.0-0.4); EOS % 4.3 % (1.0-4.0); HEMATOCRIT 30.6 % (37.0-47.0); MEAN CORPUSCULAR HGB 28.8 pg (27.0-31.0); MEAN CORPUSCULAR HGB CONC 29.1 g/dl (33.0-37.0); MEAN PLATELET VOLUME 9.5 fl (9.6-12.3); MONO # 0.6 10*3/uL (0.1-1.0); MONO % 12.7 % (3.0-9.0); NEUT % 64.3 % (47.0-73.0); PLATELET COUNT AUTOMATED 231 10*3/uL (130-400); RED BLOOD COUNT 3.09 10*6/uL (4.10-5.10); RED CELL DISTRI WIDTH 18.4 % (0-14.5); WHITE BLOOD COUNT 4.7 10*3/uL (4.8-10.8)
[2023-12-21 08:00] VITALS: BP 115/52
[2023-12-21] MEDS ORDERED: NEURONTIN600 MG PO (11:08)
[2023-12-21] MEDS ORDERED: HYDROCODONE-AC1 EAC1 PO (11:08)
[2023-12-21 12:00] VITALS: BP 121/79
== END 2023-12-21 16:18 | DRG 682 ==
LOC: ED 12:14 → EDHOLD 15:36 → 4E 15:36 → EDHOLD 15:56 → 4E 22:56
PROVIDERS: Internal Medicine; Student in an Organized Health Care Education/Training Program; ADMIT Internal Medicine; ATTEND Internal Medicine
DX: N17.0 Acute kidney failure with tubular necrosis (principal); I50.33 Acute on chronic diastolic (congestive) heart failure; I13.0 Hypertensive heart and chronic kidney disease with heart failure and stage 1 through stage 4 chronic kidney disease, or unspecified chronic kidney disease; J96.11 Chronic respiratory failure with hypoxia; N18.32 Chronic kidney disease, stage 3b; J44.9 Chronic obstructive pulmonary disease, unspecified; E03.9 Hypothyroidism, unspecified; I25.10 Atherosclerotic heart disease of native coronary artery without angina pectoris; E11.22 Type 2 diabetes mellitus with diabetic chronic kidney disease; E78.5 Hyperlipidemia, unspecified; K21.9 Gastro-esophageal reflux disease without esophagitis; D72.819 Decreased white blood cell count, unspecified; G47.33 Obstructive sleep apnea (adult) (pediatric); D53.9 Nutritional anemia, unspecified; E11.65 Type 2 diabetes mellitus with hyperglycemia; I48.91 Unspecified atrial fibrillation; Z88.1 Allergy status to other antibiotic agents; Z88.8 Allergy status to other drugs, medicaments and biological substances; Z91.09 Other allergy status, other than to drugs and biological substances; Z79.899 Other long term (current) drug therapy; Z79.01 Long term (current) use of anticoagulants; Z79.2 Long term (current) use of antibiotics; Z90.49 Acquired absence of other specified parts of digestive tract; Z90.710 Acquired absence of both cervix and uterus; Z96.652 Presence of left artificial knee joint; Z98.42 Cataract extraction status, left eye; Z98.41 Cataract extraction status, right eye; Z87.891 Personal history of nicotine dependence; Z82.49 Family history of ischemic heart disease and other diseases of the circulatory system; Z83.3 Family history of diabetes mellitus; Z81.8 Family history of other mental and behavioral disorders; Z79.4 Long term (current) use of insulin

== ENCOUNTER → 2024-04-07 | Outpatient (CLI) | payer MEDICARE, OTHER, MEDICAID ==
[~2024-04-07] MED LIST changes: +DOXYCYCLINE MO100 MG PO; +MUCUS RELIEF E600 MG PO; +VIBRA-TAB100 MG PO; +VITAMIN D3125 MCG PO
[2024-04-07 12:33] LABS: BASO % 0.7 % (0.0-1.0); BILIRUBIN Negative (Negative); BLOOD Negative (Negative); CLARITY Clear (Clear); COLOR Yellow (Yellow); EOS # 0.1 10*3/uL (0.0-0.4); EOS % 2.7 % (1.0-4.0); GLUCOSE Negative (Negative); HEMATOCRIT 26.7 % (37.0-47.0); KETONE Negative (Negative); LEUKO ESTERASE Negative (Negative); MEAN CELL VOLUME 90.2 fl (81.0-99.0); MEAN CORPUSCULAR HGB CONC 27.7 g/dl (33.0-37.0); MEAN PLATELET VOLUME 9.7 fl (9.6-12.3); MONO # 0.7 10*3/uL (0.1-1.0); MONO % 16.8 % (3.0-9.0); NEUT # 2.7 10*3/uL (2.3-7.9); NEUT % 65.7 % (47.0-73.0); NITRITE Negative (Negative); PH 5.5 (4.5-8.0); PLATELET COUNT AUTOMATED 190 10*3/uL (130-400); RED BLOOD COUNT 2.96 10*6/uL (4.10-5.10); RED CELL DISTRI WIDTH 16.8 % (0-14.5); UROBILINOGEN 0.2 E.U./dl (0.0-1.0)
[2024-04-07 13:14] LABS: POTASSIUM 4.3 mmol/L (3.4-5.1)
[2024-04-07 13:17] LABS: EPITHELIAL CELLS 0-2
[2024-04-07 13:18] LABS: BACTERIA TRACE
[2024-04-07 13:20] LABS: RBC 0-2 rbc/hpf (0-2)
[2024-04-07 13:22] LABS: VITAMIN D, 25-HYDROXY 80.7 ng/mL (30-100)
== END | disposition home or self-care (01) ==
LOC: LAB 11:34
PROVIDERS: ATTEND Nurse Practitioner Family
DX: N18.32 Chronic kidney disease, stage 3b (principal); E55.9 Vitamin D deficiency, unspecified; N25.81 Secondary hyperparathyroidism of renal origin; D63.1 Anemia in chronic kidney disease; Z79.899 Other long term (current) drug therapy

== ENCOUNTER 2024-06-10 13:38 | Emergency (ER) | payer MEDICARE, OTHER, MEDICAID ==
[~2024-06-10] VITALS: Ht 170.1 cm; Wt 113.4 kg
[~2024-06-10 13:38] MED LIST changes: +FERROUS FUMARA324 MG PO; +Lasix80 MG PO
[2024-06-10 13:41] VITALS: BP 109/54
[2024-06-10 14:11] LABS: BASO % 0.4 % (0.0-1.0); EOS # 0.1 10*3/uL (0.0-0.4); EOS % 2.6 % (1.0-4.0); HEMATOCRIT 29.6 % (37.0-47.0); MEAN CELL VOLUME 94.3 fl (81.0-99.0); MEAN CORPUSCULAR HGB 27.4 pg (27.0-31.0); MEAN CORPUSCULAR HGB CONC 29.1 g/dl (33.0-37.0); MEAN PLATELET VOLUME 9.4 fl (9.6-12.3); MONO # 0.6 10*3/uL (0.1-1.0); MONO % 12.6 % (3.0-9.0); NEUT # 3.2 10*3/uL (2.3-7.9); NEUT % 71.6 % (47.0-73.0); PLATELET COUNT AUTOMATED 160 10*3/uL (130-400); RED BLOOD COUNT 3.14 10*6/uL (4.10-5.10); RED CELL DISTRI WIDTH 18.6 % (0-14.5); WHITE BLOOD COUNT 4.5 10*3/uL (4.8-10.8)
[2024-06-10 14:34] LABS: POTASSIUM 4.3 mmol/L (3.4-5.1); TOTAL PROTEIN 5.9 gm/dL (6.0-8.0)
[2024-06-10 15:43] LABS: BILIRUBIN Negative (Negative); BLOOD Negative (Negative); CLARITY Clear (Clear); COLOR Yellow (Yellow); GLUCOSE Negative (Negative); KETONE Negative (Negative); LEUKO ESTERASE Trace (Negative); NITRITE Negative (Negative); PH 5.5 (4.5-8.0); UROBILINOGEN 0.2 E.U./dl (0.0-1.0)
[2024-06-10 15:52] LABS: HYALINE CAST 0-2; RBC 0-2 rbc/hpf (0-2)
[2024-06-10 15:53] LABS: BACTERIA TRACE
== END 2024-06-10 17:22 | disposition home or self-care (01) ==
LOC: ED 13:38
PROVIDERS: Internal Medicine
DX: R53.83 Other fatigue (principal); Z88.1 Allergy status to other antibiotic agents; Z88.6 Allergy status to analgesic agent; Z79.899 Other long term (current) drug therapy; Z90.49 Acquired absence of other specified parts of digestive tract; Z90.710 Acquired absence of both cervix and uterus; Z90.89 Acquired absence of other organs; Z98.890 Other specified postprocedural states; Z87.891 Personal history of nicotine dependence

== ENCOUNTER → 2024-06-19 | Outpatient (CLI) | payer MEDICARE, OTHER, MEDICAID ==
[2024-06-19 12:12] LABS: BASO % 0.5 % (0.0-1.0); EOS # 0.1 10*3/uL (0.0-0.4); EOS % 2.6 % (1.0-4.0); HEMATOCRIT 26.9 % (37.0-47.0); MEAN CELL VOLUME 91.5 fl (81.0-99.0); MEAN CORPUSCULAR HGB 25.9 pg (27.0-31.0); MEAN CORPUSCULAR HGB CONC 28.3 g/dl (33.0-37.0); MEAN PLATELET VOLUME 9.3 fl (9.6-12.3); MONO # 0.5 10*3/uL (0.1-1.0); MONO % 12.6 % (3.0-9.0); NEUT # 2.8 10*3/uL (2.3-7.9); NEUT % 72.2 % (47.0-73.0); PLATELET COUNT AUTOMATED 172 10*3/uL (130-400); RED BLOOD COUNT 2.94 10*6/uL (4.10-5.10); RED CELL DISTRI WIDTH 17.8 % (0-14.5); WHITE BLOOD COUNT 3.9 10*3/uL (4.8-10.8)
[2024-06-19 12:55] LABS: POTASSIUM 3.5 mmol/L (3.4-5.1)
== END | disposition home or self-care (01) ==
LOC: LAB 11:41
PROVIDERS: ATTEND Family Medicine
DX: D64.9 Anemia, unspecified (principal); E87.6 Hypokalemia

== ENCOUNTER → 2024-06-20 | Outpatient (CLI) | payer MEDICARE, OTHER, MEDICAID ==
[2024-06-20] VITALS (9 sets, daily range): BP systolic 114–149; BP diastolic 42–68
[~2024-06-20] MED LIST changes: +SODIUM CHLORIDE 0.9% 100 ML BAG IV SCH; +SODIUM CHLORIDE 0.9% 100 ML IV ONE
== END | disposition home or self-care (01) ==
LOC: TRNFUSION 12:00
PROVIDERS: ATTEND Internal Medicine
DX: D50.9 Iron deficiency anemia, unspecified (principal)

== ENCOUNTER → 2024-06-26 | Outpatient (CLI) | payer MEDICARE, OTHER, MEDICAID ==
[~2024-06-26] MED LIST changes: -SODIUM CHLORIDE 0.9% 100 ML BAG IV SCH; -SODIUM CHLORIDE 0.9% 100 ML IV ONE
[2024-06-26 11:55] LABS: BASO % 0.7 % (0.0-1.0); EOS # 0.1 10*3/uL (0.0-0.4); EOS % 2.9 % (1.0-4.0); HEMATOCRIT 28.2 % (37.0-47.0); MEAN CELL VOLUME 91.9 fl (81.0-99.0); MEAN CORPUSCULAR HGB 26.1 pg (27.0-31.0); MEAN CORPUSCULAR HGB CONC 28.4 g/dl (33.0-37.0); MEAN PLATELET VOLUME 9.5 fl (9.6-12.3); MONO # 0.5 10*3/uL (0.1-1.0); NEUT # 3.2 10*3/uL (2.3-7.9); NEUT % 71.3 % (47.0-73.0); PLATELET COUNT AUTOMATED 178 10*3/uL (130-400); RED BLOOD COUNT 3.07 10*6/uL (4.10-5.10); RED CELL DISTRI WIDTH 17.2 % (0-14.5); WHITE BLOOD COUNT 4.5 10*3/uL (4.8-10.8)
== END | disposition home or self-care (01) ==
LOC: LAB 11:32
PROVIDERS: ATTEND Family Medicine
DX: D64.9 Anemia, unspecified (principal)

== ENCOUNTER → 2024-08-11 | Outpatient (CLI) | payer MEDICARE, OTHER, MEDICAID ==
[2024-08-11 10:46] LABS: POTASSIUM 3.7 mmol/L (3.4-5.1)
== END | disposition home or self-care (01) ==
LOC: LAB 09:51
PROVIDERS: ATTEND Internal Medicine Cardiovascular Disease
DX: I25.10 Atherosclerotic heart disease of native coronary artery without angina pectoris (principal)

== ENCOUNTER 2024-10-06 12:19 | Inpatient (IN) | payer MEDICARE, OTHER, MEDICAID ==
[2024-10-06] VITALS (10 sets, daily range): BP systolic 94–142; BP diastolic 34–69
[~2024-10-06] VITALS: Ht 170.2 cm; Wt 110.3 kg
[2024-10-06] MEDS ORDERED: SODIUM CHLORIDE 0.9% 500 ML IV ONE (12:55)
[2024-10-06 13:30] LABS: MEAN CELL VOLUME 96.4 fl (81.0-99.0); MEAN CORPUSCULAR HGB 25.9 pg (27.0-31.0); MEAN PLATELET VOLUME 10.3 fl (9.6-12.3); NUCLEATED RED BLOOD CELL 0.0 % (0.0-0.0); NUCLEATED RED BLOOD CELL 0.0 10*3/uL (0.0-0.0); PLATELET COUNT AUTOMATED 224 10*3/uL (130-400); RED CELL DISTRI WIDTH 19.5 % (0-14.5)
[2024-10-06 13:31] LABS: MANUAL DIFF REFLEX YES
[2024-10-06 13:49] LABS: BUN 31 mg/dl (9-23); SGPT/ALT 7 U/L (5-49)
[2024-10-06 13:52] LABS: PLATELET SUFFICIENCY NORMAL (NORMAL)
[2024-10-06 14:21] LABS: ACT PARTIAL THROMBO TIME 20.8 SECONDS (20.0-32.1)
[2024-10-06] MEDS ORDERED: SODIUM CHLORIDE 0.9% 50 ML IV ONE (15:23)
[2024-10-06] MEDS ORDERED: Ondansetron Hydrochloride 4 MG/2 ML VIAL IV PRN (16:05)
[2024-10-07] VITALS (12 sets, daily range): BP systolic 103–142; BP diastolic 42–67
[2024-10-07] MEDS ORDERED: CALCIUM500 M1 PO (02:04)
[2024-10-07] MEDS ORDERED: JARDIANCE10 MG PO (02:07)
[2024-10-07] MEDS ORDERED: ALLERGY RELIEF10 M4 PO (02:09)
[2024-10-07] MEDS ORDERED: MIRALAX119 GM PO (02:22)
[2024-10-07] MEDS ORDERED: PEPCID20 MG PO (02:24)
[2024-10-07] MEDS ORDERED: XARE15TA PO (02:25)
[2024-10-07] MEDS ORDERED: TORSEMIDE100 MG PO (02:26)
[2024-10-07] MEDS ORDERED: COLACE100 MG PO (02:27)
[2024-10-07] MEDS ORDERED: METFORMIN HYDR500 MG PO (02:29)
[2024-10-07] MEDS ORDERED: HYDROXYZINE HCL25 MG PO (02:32)
[2024-10-07 05:54] LABS: BUN 31.0 mg/dl (9-23)
[2024-10-07] MEDS ORDERED: DICLOFENAC SODIUM 100 GM TUBE T PRN (06:00)
[2024-10-07 06:18] LABS: MEAN CORPUSCULAR HGB 27.7 pg (27.0-31.0); MEAN PLATELET VOLUME 10.1 fl (9.6-12.3); NUCLEATED RED BLOOD CELL 0.0 % (0.0-0.0); NUCLEATED RED BLOOD CELL 0.0 10*3/uL (0.0-0.0); PLATELET COUNT AUTOMATED 199 10*3/uL (130-400); RED CELL DISTRI WIDTH 17.7 % (0-14.5)
[2024-10-07 06:21] LABS: MANUAL DIFF REFLEX YES; MEAN CELL VOLUME 92.3 fl (81.0-99.0)
[2024-10-07] MEDS ORDERED: BUDESONIDE 0.5 MG AMP NEB SCH (06:35)
[2024-10-07 06:50] LABS: PLATELET SUFFICIENCY NORMAL (NORMAL)
[2024-10-07] MEDS ORDERED: SODIUM CHLORIDE 0.9% 500 ML IV ONE ×2 (07:35→08:01)
[2024-10-07] MEDS ORDERED: Polyethylene Glycol 3350 238 GM BOT PO SCH (10:00)
[2024-10-07] MEDS ORDERED: POTASSIUM CHLORIDE 20 MEQ TAB PO SCH (10:00)
[2024-10-07] MEDS ORDERED: DOCUSATE SODIUM 100 MG CAP PO SCH (10:00)
[2024-10-07] MEDS ORDERED: TORSEMIDE 20 MG TAB PO SCH (10:00)
[2024-10-07] MEDS ORDERED: CALCIUM (OSCAL) 500MG PO SCH (10:00)
[2024-10-07] MEDS ORDERED: Doxepin Hydrochloride 25 MG CAP PO SCH (10:00)
[2024-10-07] MEDS ORDERED: Cholecalciferol 5,000 IU CAP (125 MCG) PO SCH (10:00)
[2024-10-07] MEDS ORDERED: LORATADINE 10 MG TAB PO SCH (10:00)
[2024-10-07] MEDS ORDERED: Acetaminophen/Hydrocodone 5 MG/325 MG TABLET PO SCH (14:00)
[2024-10-07] MEDS ORDERED: FAMOTIDINE 20 MG TAB PO SCH (22:00)
[2024-10-07] MEDS ORDERED: ATORVASTATIN CALCIUM 40 MG TABLET PO SCH (22:00)
[2024-10-07] MEDS ORDERED: LATANOPROST 0.005% 2.5 ML BOTTLE OPH SCH (22:00)
[2024-10-08] VITALS: BP 130/60
[2024-10-08 06:22] LABS: BASO # 0.0 10*3/uL (0.0-0.1); BASO % 0.4 % (0.0-1.0); EOS # 0.1 10*3/uL (0.0-0.4); EOS % 2.5 % (1.0-4.0); MEAN CELL VOLUME 93.4 fl (81.0-99.0); MEAN CORPUSCULAR HGB 28.0 pg (27.0-31.0); MEAN PLATELET VOLUME 10.2 fl (9.6-12.3); MONO # 0.9 10*3/uL (0.1-1.0); MONO % 19.1 % (3.0-9.0); NEUT # 3.0 10*3/uL (2.3-7.9); NEUT % 63.2 % (47.0-73.0); NUCLEATED RED BLOOD CELL 0.0 % (0.0-0.0); NUCLEATED RED BLOOD CELL 0.0 10*3/uL (0.0-0.0); PLATELET COUNT AUTOMATED 205 10*3/uL (130-400); RED CELL DISTRI WIDTH 17.7 % (0-14.5)
[2024-10-08 08:00] VITALS: BP 107/46
[2024-10-08 09:45] VITALS: BP 116/54
[2024-10-08] MEDS ORDERED: NA FERRIC GLUC CMPL/SUCROSE 62.5 MG/5 ML VIAL IV SCH (10:00)
[2024-10-08] MEDS ORDERED: Polyethylene Glycol 3350 17 GM PACKET PO SCH (10:00)
[2024-10-08 11:58] VITALS: BP 117/84
[2024-10-08] MEDS ORDERED: HYDROCODONE-AC1 EAC1 PO ×2 (15:10→15:12)
[2024-10-08] MEDS ORDERED: FERROUS FUMARA324 MG PO (15:10)
[2024-10-08] MEDS ORDERED: POTASSIUM CHLO20 ME4 PO (15:10)
== END 2024-10-08 16:16 | DRG 377 ==
LOC: ED 12:19 → 4E 14:56 → EDHOLD 14:56 → 4E 22:09
PROVIDERS: Emergency Medicine; ADMIT Student in an Organized Health Care Education/Training Program; ATTEND Student in an Organized Health Care Education/Training Program
PROC: 30233N1 Transfusion of Nonautologous Red Blood Cells into Peripheral Vein, Percutaneous Approach (ICD-10-PCS; principal; 2024-10-06)
DX: K55.21 Angiodysplasia of colon with hemorrhage (principal); N17.0 Acute kidney failure with tubular necrosis; E44.0 Moderate protein-calorie malnutrition; D68.59 Other primary thrombophilia; J96.10 Chronic respiratory failure, unspecified whether with hypoxia or hypercapnia; I13.0 Hypertensive heart and chronic kidney disease with heart failure and stage 1 through stage 4 chronic kidney disease, or unspecified chronic kidney disease; I50.32 Chronic diastolic (congestive) heart failure; K92.1 Melena; D64.9 Anemia, unspecified; J41.0 Simple chronic bronchitis; N18.32 Chronic kidney disease, stage 3b; I25.10 Atherosclerotic heart disease of native coronary artery without angina pectoris; E78.5 Hyperlipidemia, unspecified; K21.9 Gastro-esophageal reflux disease without esophagitis; E11.22 Type 2 diabetes mellitus with diabetic chronic kidney disease; E03.9 Hypothyroidism, unspecified; G47.33 Obstructive sleep apnea (adult) (pediatric); F17.210 Nicotine dependence, cigarettes, uncomplicated; E11.65 Type 2 diabetes mellitus with hyperglycemia; I48.0 Paroxysmal atrial fibrillation; G89.29 Other chronic pain; Z79.01 Long term (current) use of anticoagulants; Z88.8 Allergy status to other drugs, medicaments and biological substances; Z90.710 Acquired absence of both cervix and uterus; Z90.49 Acquired absence of other specified parts of digestive tract; Z83.3 Family history of diabetes mellitus; Z85.038 Personal history of other malignant neoplasm of large intestine; Z79.4 Long term (current) use of insulin; Z68.36 Body mass index [BMI] 36.0-36.9, adult